=== PATIENT | female | born 1945 | race Caucasian/White ===

== ENCOUNTER → 2016-03-03 | Outpatient (REF) | payer MEDICARE ==
[~2016-03-03] MED LIST: ALEV220C2 PO; ALPR0.25 PO; ATOR1TAB21 PO; BENA25CA PO; CETI10TA PO; CO Q100C PO; CRAN500C2 PO; IBUP200C PO; VENTAER INH; VERA240C PO
== END ==
LOC: M LAB REF 12:39
PROVIDERS: ATTEND Internal Medicine Medical Oncology
DX: C50.019 Malignant neoplasm of nipple and areola, unspecified female breast (principal)

== ENCOUNTER → 2016-04-21 | Outpatient (REF) | payer MEDICARE ==
[2016-04-21 19:25] LABS: PERCENT SATURATION 3.3 % (13.2-37.4)
== END ==
LOC: M LAB REF 16:35
PROVIDERS: ATTEND Internal Medicine Medical Oncology
DX: C50.919 Malignant neoplasm of unspecified site of unspecified female breast (principal)

== ENCOUNTER → 2016-05-12 | Outpatient (REF) | payer MEDICARE | LOC: M LAB REF 16:44 | PROVIDERS: ATTEND Internal Medicine Medical Oncology | DX: C50.911 Malignant neoplasm of unspecified site of right female breast (principal) ==

== ENCOUNTER → 2016-06-02 | Outpatient (REF) | payer MEDICARE | LOC: M LAB REF 16:13 | PROVIDERS: ATTEND Internal Medicine Medical Oncology | DX: C50.119 Malignant neoplasm of central portion of unspecified female breast (principal) ==

== ENCOUNTER → 2016-07-02 | Outpatient (REF) | payer MEDICARE | LOC: M LAB REF 16:17 | PROVIDERS: ATTEND Internal Medicine Medical Oncology | DX: C50.912 Malignant neoplasm of unspecified site of left female breast (principal) ==

== ENCOUNTER → 2016-07-21 | Outpatient (REF) | payer MEDICARE | LOC: M LAB REF 16:35 | PROVIDERS: ATTEND Internal Medicine Medical Oncology | DX: C50.919 Malignant neoplasm of unspecified site of unspecified female breast (principal) ==

== ENCOUNTER → 2016-07-22 | Outpatient (CLI) | payer MEDICARE ==
[~2016-07-22] MED LIST changes: +BENA25CA4 PO; +CALCTAB68 PO; +CO Q10CA PO; +ENAL10TA2 PO; +FLON1SPR; +LEVO75TA4 PO; +PROA1AER INH; +VERA240C3 PO
== END ==
LOC: M LAB 12:35
PROVIDERS: ATTEND Internal Medicine Gastroenterology
DX: D50.9 Iron deficiency anemia, unspecified (principal)

== ENCOUNTER → 2016-08-03 | Outpatient (CLI) | payer MEDICARE ==
[~2016-08-03] VITALS: Ht 152.4 cm; Wt 59.9 kg
[~2016-08-03] MED LIST changes: +LIDOCAINE 2% INJ 100 MG/5 ML SDV (FOR ANES.) As Ordered ONE; +NS 1,000 ML IV ONE; +PHENYLephrine HCL 500 MCG/5 ML (100MCG/ML) SYRINGE (J2370) As Ordered ONE; +PROPOFOL 200 MG/20 ML VIAL As Ordered ONE; +ePHEDrine SULFATE 25 MG/5 ML(5MG/ML) SYRINGE As Ordered ONE
[2016-08-03 09:06] VITALS: BP 156/73
== END | disposition home or self-care (01) ==
LOC: M OPP 06:38
PROVIDERS: ATTEND Internal Medicine Gastroenterology
DX: D50.9 Iron deficiency anemia, unspecified (principal); D12.5 Benign neoplasm of sigmoid colon; D12.2 Benign neoplasm of ascending colon; K57.30 Diverticulosis of large intestine without perforation or abscess without bleeding; K64.8 Other hemorrhoids; K29.70 Gastritis, unspecified, without bleeding; K26.9 Duodenal ulcer, unspecified as acute or chronic, without hemorrhage or perforation; I10 Essential (primary) hypertension; E78.5 Hyperlipidemia, unspecified; Z86.79 Personal history of other diseases of the circulatory system; E16.1 Other hypoglycemia; M19.90 Unspecified osteoarthritis, unspecified site; F41.9 Anxiety disorder, unspecified; Z78.0 Asymptomatic menopausal state; J45.909 Unspecified asthma, uncomplicated; Z85.3 Personal history of malignant neoplasm of breast; Z92.21 Personal history of antineoplastic chemotherapy; Z88.5 Allergy status to narcotic agent; Z88.8 Allergy status to other drugs, medicaments and biological substances; Z79.899 Other long term (current) drug therapy; Z80.1 Family history of malignant neoplasm of trachea, bronchus and lung; Z80.0 Family history of malignant neoplasm of digestive organs
CPT/HCPCS: 43239; 45385; 88305; J2370

== ENCOUNTER → 2016-08-04 | Outpatient (CLI) | payer MEDICARE ==
[~2016-08-04] MED LIST changes: -LIDOCAINE 2% INJ 100 MG/5 ML SDV (FOR ANES.) As Ordered ONE; -NS 1,000 ML IV ONE; -PHENYLephrine HCL 500 MCG/5 ML (100MCG/ML) SYRINGE (J2370) As Ordered ONE; -PROPOFOL 200 MG/20 ML VIAL As Ordered ONE; -ePHEDrine SULFATE 25 MG/5 ML(5MG/ML) SYRINGE As Ordered ONE
--- NOTE | 2016-08-11 15:27 | DEXA ---
AP SPINE L1 - L4 1.437 2.0 3.7 LT FEMUR TOTAL 1.080 0.6 2.2 RT FEMUR TOTAL 1.081 0.6 2.2 TOTAL BODY TOTAL OTHER DUAL FEMUR FRAX* ASSESSMENT Risk factors: Chronic glucocorticoids. 10 year probability of fracture Major osteoporotic fracture 12.5 % Hip fracture 1.2 % COMMENTS: Normal bone densitometry of the spine and hips. The increased density of the spine does represent a significant change. The increased density of the left hip does represent a significant change. The increased density of the right hip does represent a significant change. The density of the spine has increased 26.6% since the initial exam on 2006. The spine density has increased 16.1% since the most recent exam on 08/07/2011. The density of the left hip has increased 4.7% since the initial exam on 2006. The density of the left hip has increased 2.5% since the most recent exam on . The density of the right hip has increased 2.1% since the initial exam on 2006. The density of the right hip has increased 3.3% since the most recent exam on . FOLLOW-UP: Recommendation for the next bone density exam: 5 years. LACIE
== END ==
LOC: M WHC 13:23
PROVIDERS: ATTEND Nurse Practitioner Family
DX: Z01.419 Encounter for gynecological examination (general) (routine) without abnormal findings (principal); N95.9 Unspecified menopausal and perimenopausal disorder; C50.912 Malignant neoplasm of unspecified site of left female breast; Z17.1 Estrogen receptor negative status [ER-]; Z90.13 Acquired absence of bilateral breasts and nipples

== ENCOUNTER → 2016-08-11 | Outpatient (REF) | payer MEDICARE | LOC: M LAB REF 16:58 | PROVIDERS: ATTEND Internal Medicine Medical Oncology | DX: C50.919 Malignant neoplasm of unspecified site of unspecified female breast (principal) ==

== ENCOUNTER → 2016-08-25 | Outpatient (CLI) | payer MEDICARE ==
[~2016-08-25] MED LIST changes: +E-Z-PAQUE 96% w/w SUSP 176GM BTL As Ordered ONE; -PROA1AER INH; +PROAAER10 INH
--- NOTE | 2016-08-25 17:42 | REP ---
SMALL BOWEL FOLLOW THROUGH: The procedure was performed under the direct supervision of Dr. Tobar. The images were reviewed with Dr. Tobar. The specifications checker film shows no organomegaly or pathological masses. The intestinal gas pattern is nonspecific. There are degenerative changes of the spine. Liquid barium was administered and the barium column was followed through the small bowel to the level of the terminal ileum. Small bowel transit time was approximately 15 minutes. During fluoroscopy, gentle palpation shows all loops are freely movable and pliable. There are no fixed or angulated loops. The small bowel mucosal pattern is normal in course and caliber. There is no transition to suggest a partial small bowel obstruction. The cecum is mobile and the terminal ileum is spotted in the right upper quadrant. Spot filming of the terminal ileum shows it to be unremarkable. IMPRESSION: The cecum is mobile with the terminal ileum being spotted on the right upper quadrant. Otherwise unremarkable small bowel follow through examination. 1 minute and 21 seconds of fluoroscopy time was utilized for this procedure. Reviewed by ADRY Wellington 08/26/2016 01:32 PEdited and Signed by Gordon Tobar MD 08/26/2016 05:33 P
== END ==
LOC: M RAD 07:50
PROVIDERS: ATTEND Internal Medicine Gastroenterology
DX: D50.9 Iron deficiency anemia, unspecified (principal)

== ENCOUNTER → 2016-09-01 | Outpatient (REF) | payer MEDICARE ==
[~2016-09-01] MED LIST changes: -E-Z-PAQUE 96% w/w SUSP 176GM BTL As Ordered ONE
== END ==
LOC: M LAB REF 16:42
PROVIDERS: ATTEND Internal Medicine Medical Oncology
DX: C50.919 Malignant neoplasm of unspecified site of unspecified female breast (principal)

== ENCOUNTER → 2016-09-11 | Outpatient (CLI) | payer MEDICARE ==
[~2016-09-11] MED LIST changes: +ISOVUE-370 76% 100ML VIAL (Q9967) As Ordered ONE
--- NOTE | 2016-09-11 11:28 | REP ---
CT of the chest for restaging of breast carcinoma: Comparison is the most recent prior study of 11/27/2015. Scanning is performed with IV contrast. There are bilateral mastectomies as previously. There is a right subclavian indwelling Port-A-Cath with the tip in satisfactory position in the the superior vena cava, unchanged. There are no lung masses or nodules. There is a at a stable tiny granuloma in the right upper lobe on image 31 and AC stable small linear density adjacent to the left major fissure on image 51, stable and unchanged. There are no acute infiltrates or effusions. There is no mediastinal or hilar add at the. There is no axillary adenopathy. The thoracic aorta is unremarkable except for occasional calcified atheroma. Cardiac size is normal. There is no pericardial effusion. In the visualized upper abdomen numerous hepatic cysts are again identified, not significantly changed. On the comparison study there was an enhancing lesion in the medial segment of the hepatic left lobe. This is not visualized on the study today, likely because of differences in timing of the scan with the IV contrast bolus. However, this lesion was unchanged from multiple other prior studies. There is a small density adjacent to the superior endplate of the approximate T5 vertebral body, unchanged, possibly a blastic metastasis versus bone island. 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 This is an anatomic variant. There are no other lytic, blastic or destructive skeletal changes. Impression: There is no significant change from the comparison study. No pulmonary metastases are identified. There is no mediastinal, hilar or axillary adenopathy. There are no acute infiltrates or effusions. There is a small sclerotic lesion adjacent to the superior endplate of the T5 vertebral body which could be a blastic metastasis or bone island. It is unchanged. There are bilateral mastectomies. There is a right subclavian central venous Yknfwe-F-Tvjj catheter with the tip in the superior vena cava. Signed by Gordon Garcia MD 09/11/2016 11:19 A
--- NOTE | 2016-09-11 13:53 | REP ---
Whole body radionuclide bone scan: Comparison is 06/03/2015. Whole-body scanning is performed. Additionally enlarged right and left lateral views of the calvarium are performed and enlarged oblique views of the ribs and pelvis are performed, as previously. There is no calvarial uptake as previously. There is free uptake foci in the ribs as previously, one in the posterior left seventh rib and the other in the posterior sixth rib and the third in the right sixth rib laterally. On the there is corresponding to healing rib fractures on previous CT scans. There is focal increased uptake at the right thumb base, likely from osteoarthritis. This is unchanged. Otherwise, there are no foci of increased uptake. Impression: No evidence of metastatic disease. There is uptake in three known rib fractures and uptake at the base of the right thumb, likely degenerative. The study is performed with 22 mCi of technetium 99m labeled MDP. Sign taking Signed by Gordon Garcia MD 09/11/2016 01:44 P
== END ==
LOC: M RAD 10:21
PROVIDERS: ATTEND Nurse Practitioner Family
DX: C50.919 Malignant neoplasm of unspecified site of unspecified female breast (principal)
CPT/HCPCS: 71260; 78306; A9503; Q9967

== ENCOUNTER → 2016-09-22 | Outpatient (REF) | payer MEDICARE ==
[~2016-09-22] MED LIST changes: -ISOVUE-370 76% 100ML VIAL (Q9967) As Ordered ONE
== END ==
LOC: M LAB REF 16:52
PROVIDERS: ATTEND Internal Medicine Medical Oncology
DX: C50.919 Malignant neoplasm of unspecified site of unspecified female breast (principal)

== ENCOUNTER → 2016-10-06 | Outpatient (CLI) | payer MEDICARE ==
--- NOTE | 2016-10-06 11:19 | REP ---
KUB: Single view. HISTORY: Foreign body in small intestine. FINDINGS: Bowel gas pattern is unremarkable. No opaque foreign body is seen. There are phleboliths in the pelvis. Flank stripes are intact. No mass organomegaly is seen. IMPRESSION: Unremarkable bowel gas pattern. No opaque foreign body seen. Signed by Torres Rojo MD 10/06/2016 01:06 P
[2016-10-17 10:53] LABS: PROMETHEUS IBD ANTIBODIES SEE SEPARATE REPORT; PROMETHEUS IBD SNP SEE SEPARATE REPORT
== END ==
LOC: M LAB 10:04
PROVIDERS: ATTEND Internal Medicine Gastroenterology
DX: T18.3XXA Foreign body in small intestine, initial encounter (principal); W18.30XA Fall on same level, unspecified, initial encounter; Y92.009 Unspecified place in unspecified non-institutional (private) residence as the place of occurrence of the external cause

== ENCOUNTER → 2016-10-08 | Outpatient (REF) | payer MEDICARE | LOC: M LAB REF 09:30 | PROVIDERS: ATTEND Internal Medicine Gastroenterology | DX: K52.9 Noninfective gastroenteritis and colitis, unspecified (principal); D50.9 Iron deficiency anemia, unspecified ==

== ENCOUNTER → 2016-11-03 | Outpatient (REF) | payer MEDICARE | LOC: M LAB REF 17:25 | PROVIDERS: ATTEND Internal Medicine Medical Oncology | DX: C50.912 Malignant neoplasm of unspecified site of left female breast (principal) ==

== ENCOUNTER → 2017-01-26 | Outpatient (REF) | payer MEDICARE | LOC: M LAB REF 14:42 | PROVIDERS: ATTEND Internal Medicine Medical Oncology | DX: C50.919 Malignant neoplasm of unspecified site of unspecified female breast (principal) ==

== ENCOUNTER → 2017-03-30 | Outpatient (REF) | payer MEDICARE ==
[2017-04-02 00:07] LABS: CA 27.29 13.7 U/mL (0.0-38.6)
== END ==
LOC: M LAB REF 17:29
DX: C50.919 Malignant neoplasm of unspecified site of unspecified female breast (principal)
CPT/HCPCS: 86300

== ENCOUNTER → 2017-04-01 | Outpatient (CLI) | payer MEDICARE | LOC: M RAD 13:36 | DX: M79.621 Pain in right upper arm (principal) | CPT/HCPCS: 93971 ==

== ENCOUNTER → 2017-06-01 | Outpatient (REF) | payer MEDICARE | LOC: M LAB REF 15:52 | DX: C50.919 Malignant neoplasm of unspecified site of unspecified female breast (principal) | CPT/HCPCS: 86300 ==

== ENCOUNTER → 2017-06-10 | Outpatient (CLI) | payer MEDICARE | LOC: M CARPUL 10:19 | DX: C34.90 Malignant neoplasm of unspecified part of unspecified bronchus or lung (principal); Z79.899 Other long term (current) drug therapy | CPT/HCPCS: 93306 ==

== ENCOUNTER → 2017-07-13 | Outpatient (REF) | payer MEDICARE ==
[2017-07-16 03:02] LABS: CA 27.29 8.7 U/mL (0.0-38.6)
== END ==
LOC: M LAB REF 16:43
DX: C50.812 Malignant neoplasm of overlapping sites of left female breast (principal); C79.51 Secondary malignant neoplasm of bone; Z17.1 Estrogen receptor negative status [ER-]; C77.3 Secondary and unspecified malignant neoplasm of axilla and upper limb lymph nodes
CPT/HCPCS: 86300

== ENCOUNTER → 2017-08-24 | Outpatient (REF) | payer MEDICARE ==
[2017-08-28 00:14] LABS: CA 27.29 16.3 U/mL (0.0-38.6)
== END ==
LOC: M LAB REF 17:56
DX: C50.812 Malignant neoplasm of overlapping sites of left female breast (principal); C79.51 Secondary malignant neoplasm of bone; Z17.1 Estrogen receptor negative status [ER-]; C77.3 Secondary and unspecified malignant neoplasm of axilla and upper limb lymph nodes
CPT/HCPCS: 86300

== ENCOUNTER → 2017-08-31 | Outpatient (CLI) | payer MEDICARE ==
[~2017-08-31] MED LIST changes: -ALEV220C2 PO; -ALPR0.25 PO; -ATOR1TAB21 PO; -BENA25CA PO; -BENA25CA4 PO; -CALCTAB68 PO; -CETI10TA PO; -CO Q100C PO; -CO Q10CA PO; -CRAN500C2 PO; -ENAL10TA2 PO; -FLON1SPR; -IBUP200C PO; +ISOVUE-370 76% 100ML VIAL (Q9967) As Ordered; -LEVO75TA4 PO; -PROAAER10 INH; -VENTAER INH; -VERA240C PO; -VERA240C3 PO
== END ==
LOC: M RAD 09:30
DX: C50.919 Malignant neoplasm of unspecified site of unspecified female breast (principal); M51.34 Other intervertebral disc degeneration, thoracic region; R91.1 Solitary pulmonary nodule
CPT/HCPCS: Q9967

== ENCOUNTER → 2017-09-07 | Outpatient (CLI) | payer MEDICARE | LOC: M CARPUL 11:17 | DX: Z51.81 Encounter for therapeutic drug level monitoring (principal); Z79.899 Other long term (current) drug therapy; C50.912 Malignant neoplasm of unspecified site of left female breast | CPT/HCPCS: 93306 ==

== ENCOUNTER → 2017-09-14 | Outpatient (REF) | payer MEDICARE ==
[2017-09-17 00:11] LABS: CA 27.29 9.3 U/mL (0.0-38.6)
== END ==
LOC: M LAB REF 16:53
DX: C50.812 Malignant neoplasm of overlapping sites of left female breast (principal); C79.51 Secondary malignant neoplasm of bone; Z17.1 Estrogen receptor negative status [ER-]; C77.3 Secondary and unspecified malignant neoplasm of axilla and upper limb lymph nodes
CPT/HCPCS: 86300

== ENCOUNTER → 2017-10-26 | Outpatient (REF) | payer MEDICARE ==
[2017-10-29 00:07] LABS: CA 27.29 16.6 U/mL (0.0-38.6)
== END ==
LOC: M LAB REF 17:06
DX: C50.812 Malignant neoplasm of overlapping sites of left female breast (principal); C79.51 Secondary malignant neoplasm of bone; Z17.1 Estrogen receptor negative status [ER-]; C77.3 Secondary and unspecified malignant neoplasm of axilla and upper limb lymph nodes
CPT/HCPCS: 86300

== ENCOUNTER → 2017-11-30 | Outpatient (CLI) | payer MEDICARE | LOC: M CARPUL 10:23 | DX: C50.919 Malignant neoplasm of unspecified site of unspecified female breast (principal); Z79.899 Other long term (current) drug therapy | CPT/HCPCS: 93306 ==

== ENCOUNTER → 2018-03-08 | Outpatient (CLI) | payer MEDICARE ==
[~2018-03-08] MED LIST changes: +ALEV220C2 PO; +ALPR0.25 PO; +ATOR1TAB21 PO; +BENA25CA PO; +BENA25CA4 PO; +CALCTAB68 PO; +CETI10TA PO; +CO Q100C PO; +CO Q10CA PO; +CRAN500C2 PO; +ENAL10TA2 PO; +FLON1SPR; +IBUP200C PO; -ISOVUE-370 76% 100ML VIAL (Q9967) As Ordered; +LEVO75TA4 PO; +PROAAER10 INH; +VENTAER INH; +VERA240C PO; +VERA240C3 PO
--- NOTE | 2018-03-08 19:30 | ECHO ---
DATE OF PROCEDURE: 03/08/2018 REFERRING PHYSICIAN: Dr. Humera Rodriguez INDICATION: Chemotherapy. Height 152 cm, weight 55 kg. DIMENSIONS: IVS: 0.9 LV: 5.3 LVPW: 0.9 LA: 3.8 Aorta: 2.5 Mitral E wave velocity: 71 A wave: 103 E prime septal: 7 E prime lateral: 10 FINDINGS: The study is of fair technical quality. The patient is in sinus rhythm with relatively frequent ventricular ectopy. Left ventricle is of normal size and it appears borderline hypokinetic. Based on fair quality of imaging, I estimate left ventricular ejection fraction (LVEF) approximately 50-55%. Computer-generated ejection fraction was calculated at 51%. Right ventricle appears grossly normal, but it was poorly visualized. Both atria appear to be normal size. Aortic valve has three leaflets and normal mobility. Mitral, tricuspid and pulmonic valves also appear grossly normal. No pericardial effusion is noted. Inferior vena cava was not well seen. Aortic root appears normal. Aortic arch and abdominal aorta were poorly visualized. There are several cystic lesions in the liver of unclear significance. Doppler interrogation reveals normal valvular function of aortic valve. There is trace mitral insufficiency and trace tricuspid insufficiency. Calculated pulmonary artery pressure is likely normal. Pulmonic valve exhibits trace insufficiency. Mitral inflow pattern and tissue Doppler imaging of mitral annulus revealed grade 1 diastolic dysfunction. CONCLUSIONS: 1. Study is of fair technical quality. 2. Normal left ventricular (LV) size with borderline reduced LV systolic function and grade 1 diastolic dysfunction. Calculated LVEF 51%. 3. No significant valvular disease. 4. Unable to estimate central venous pressure but likely normal pulmonary artery pressure. 5. Several cystic lesions in the liver of unknown significance. COMMENT: Subacute bacterial endocarditis (SBE) prophylaxis is not recommended. MTDD
== END ==
LOC: M CARPUL 11:17
PROVIDERS: ATTEND Internal Medicine Medical Oncology
DX: C79.81 Secondary malignant neoplasm of breast (principal); Z92.21 Personal history of antineoplastic chemotherapy; Z79.899 Other long term (current) drug therapy

== ENCOUNTER → 2018-03-29 | Outpatient (CLI) | payer MEDICARE ==
--- NOTE | 2018-03-30 08:59 | REP ---
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 There are no comparison PET scans. Whole-body scanning is performed from skull base to the upper thighs. Neck and supraclavicular areas: There are no hypermetabolic foci. Chest: There are no hypermetabolic foci. Specifically there are no hypermetabolic foci in the left ribs. Abdomen, pelvis and upper thighs: There are no hypermetabolic foci. Impression: Essentially negative radionuclide PET scan. The study is performed with 8.84 mCi of F 18 FDG. Electronically Signed by Gordon Garcia MD 03/30/2018 08:50 A
== END ==
LOC: M PLARAD 11:27
PROVIDERS: ATTEND Internal Medicine Medical Oncology
DX: C50.812 Malignant neoplasm of overlapping sites of left female breast (principal); C79.51 Secondary malignant neoplasm of bone
CPT/HCPCS: 78815; A9552

== ENCOUNTER → 2018-05-26 | Outpatient (CLI) | payer MEDICARE ==
--- NOTE | 2018-05-27 07:07 | ECHO ---
DATE OF PROCEDURE: 05/26/2018 AGE: 73 GENDER: Female. HEIGHT: 60 inches. WEIGHT: 122 pounds. BODY SURFACE AREA: 1.51 meters squared. PATIENT LOCATION: Outpatient. REFERRING PHYSICIAN: Dr. Humera Rodriguez INDICATION: Potentially cardiotoxic chemotherapy. MEASUREMENTS 2-D MEASUREMENTS: RV: 2.9 cm LV: 4.9 cm Septum: 0.9 cm Posterior wall: 0.9 cm Aortic root: 2.8 cm LA: 3.7 cm LVEF: 60% DOPPLER MEASUREMENTS: AV: 1.25 m/s LVOT: 0.75 m/s LVOT diameter: 2.0 cm MV-E 74, A 110, E/E ratio 0.7 Early mitral deceleration time: 190 ms E prime: 7 A prime: 10 E/E prime ratio: 10.5 PV: 0.8 m/s Pulmonary artery acceleration time: 102 ms PASP: 33 mmHg IVC: 1.0 cm COMMENTS: Normal sinus rhythm without intraventricular conduction disturbance. M-mode and two-dimensional echocardiography was performed with pulsed, continuous wave, color flow and tissue Doppler studies. Normal left ventricular size, wall thickness and wall motion. Left atrial size upper limits of normal with Doppler evidence of an impairment of LV diastolic function but currently normal estimated mean left atrial pressure. Normal right heart chamber sizes and motion with Doppler sign of borderline pulmonary hypertension. Reduced IVC size and complete collapse in keeping with a relatively low central venous pressure. Mild aortic valvular sclerosis without stenosis or insufficiency. Normal aortic root size. Mildly thickened mitral annulus with adequate leaflet excursion and no posterior systolic buckling, but mild mitral insufficiency. No apparent intracardiac mass or pericardial effusion. Multiple cystic lesions within the liver.
== END ==
LOC: M CARPUL 10:09
PROVIDERS: ATTEND Internal Medicine Medical Oncology
DX: C50.812 Malignant neoplasm of overlapping sites of left female breast (principal); Z79.899 Other long term (current) drug therapy

== ENCOUNTER → 2018-08-30 | Outpatient (CLI) | payer MEDICARE ==
[~2018-08-30] MED LIST changes: +CALCD50TA PO; +ISOVUE-370 76% 100ML VIAL (Q9967) As Ordered ONE
--- NOTE | 2018-08-30 17:05 | REP ---
CT of the chest with IV contrast: Comparison is 08/31/2017. On the previous study there was a 3 ml nodular density in the left lower lobe. On the study today there are now multiple nodules in this location. The largest measuring up to 6 mm on image 66. This isthmus suspicious for progressive change. There is a stable 3 ml calcified granuloma in the right upper lobe on image 29, unchanged. There are no other lung nodules or mass. No acute infiltrates or pleural effusions. There is no mediastinal or hilar lymph node enlargement. There is no axillary lymph node enlargement. The thoracic aorta is unremarkable. Cardiac size is normal. There is no pericardial effusion. The visualized upper abdomen. There are numerous hepatic cysts, not significantly changed. There is no adrenal mass. There are no lytic, blastic or destructive skeletal changes. There is advanced degenerative disc disease in the upper lumbar spine. This is unchanged. Impression: There are now multiple small lung nodules associated with the single lung nodule previously identified left lower lobe as a progressive change. There is a stable calcified granuloma in the right upper lobe, unchanged. The lung monzon otherwise clear. There are no other interval changes. Electronically Signed by Gordon Garcia MD 08/30/2018 04:57 P
== END ==
LOC: M RAD 10:56
PROVIDERS: ATTEND Nurse Practitioner Family
DX: R91.8 Other nonspecific abnormal finding of lung field (principal); M51.36 Other intervertebral disc degeneration, lumbar region; J84.10 Pulmonary fibrosis, unspecified
CPT/HCPCS: 71260; Q9967

== ENCOUNTER → 2018-09-09 | Outpatient (CLI) | payer MEDICARE ==
[~2018-09-09] MED LIST changes: -ISOVUE-370 76% 100ML VIAL (Q9967) As Ordered ONE
--- NOTE | 2018-09-10 06:59 | ECHO ---
DATE OF STUDY: 09/09/2018 REFERRING PHYSICIAN: Dr. Humera Rodriguez INDICATION: Breast cancer, chemotherapy drugs that may affect the heart. HEIGHT: 60 inches. WEIGHT: 119 pounds. 2-D MEASUREMENTS: Aortic annulus: 2.2 cm Left atrium: 3.2 cm Aortic root: 2.6 cm Ventricular septum: 0.82 cm Posterior wall: 0.84 cm Left ventricle diastole: 5.2 cm Left ventricle systole: 3.5 cm Inferior vena cava: 1.1 cm with marked reduction of respiratory variation DOPPLER MEASUREMENTS: Aortic valve velocity: 128 cm/sec LVOT velocity: 64.3 cm/sec Moderate mitral regurgitation Mitral E velocity: 58.2 cm/sec Mitral A velocity: 101 cm/sec Mitral deceleration time: 229 ms Very mild tricuspid regurgitation Estimated pulmonary artery systolic pressure 41 mmHg MITRAL ANNULAR TISSUE DOPPLER: E prime septal: 4.35 cm/sec E prime lateral: 6.31 cm/sec DESCRIPTION: The rhythm was sinus. Image quality was good. No pericardial effusion. This was a 2-D, M-mode, color flow Doppler and pulse wave Doppler examination and included mitral annular tissue Doppler. CONCLUSIONS: 1. Normal left ventricle internal dimensions and wall thickness. Normal regional LV wall motion and wall thickening. Normal LV systolic function. LVEF 60% by visual estimate. 2. Mild mitral annular calcification. Moderate mitral regurgitation. 3. Mild aortic valve sclerosis with a 3-cuspid aortic valve. No aortic regurgitation. 4. Suggestive of moderate elevation of pulmonary artery systolic pressure. 5. No pericardial effusion. 6. Multiple large liver cysts.
== END ==
LOC: M CARPUL 09:14
PROVIDERS: ATTEND Internal Medicine Medical Oncology
DX: C50.812 Malignant neoplasm of overlapping sites of left female breast (principal); C34.90 Malignant neoplasm of unspecified part of unspecified bronchus or lung; C79.89 Secondary malignant neoplasm of other specified sites

== ENCOUNTER 2018-10-12 15:14 | Emergency (ER) | payer MEDICARE ==
[~2018-10-12] VITALS: Ht 154.9 cm; Wt 65.9 kg
[2018-10-12 15:20] VITALS: O2SAT 99
[2018-10-12] MEDS ORDERED: ISOVUE-370 76% 100ML VIAL (Q9967) As Ordered ONE (15:48)
[2018-10-12 16:04] LABS: BASO # 0.1 10^3/uL (0.0-0.2); BASO % 0.6 % (0.0-1.0); EOS # 0.3 10^3/uL (0.0-0.50); EOS % 2.8 % (0.0-3.0); HEMATOCRIT 38.4 % (36.0-47.0); HEMOGLOBIN 12.2 g/dl (12.0-15.5); LYMPH # 2.2 10^3/uL (1.5-4.5); LYMPH % 23.3 % (24.0-44.0); MEAN CORPUSCULAR HEMOGLOBIN 24.2 pg (27.0-33.0); MEAN CORPUSCULAR HGB CONC 31.8 g/dl (32.0-36.5); MONO # 0.3 10^3/uL (0.0-0.8); MONO % 3.4 % (0.0-5.0); NEUTROPHILS # 6.7 10^3/uL (1.8-7.7); NEUTROPHILS % 69.6 % (36.0-66.0); PLATELET COUNT, AUTOMATED 433 10^3/uL (150-450); RED BLOOD COUNT 5.05 10^6/uL (4.00-5.40); WHITE BLOOD COUNT 9.6 10^3/uL (4.0-10.0)
[2018-10-12 16:25] LABS: BLOOD UREA NITROGEN 17 MG/DL (7-18); CALCIUM LEVEL 8.5 MG/DL (8.8-10.2); CARBON DIOXIDE LEVEL 25 MEQ/L (21-32); CHLORIDE LEVEL 110 MEQ/L (98-107); CK-MB VALUE MASS < 1.0 NG/ML (<3.6); CPK CREATINE PHOSPHOKINASE 62 U/L (26-192); CREATININE FOR GFR 1.06 MG/DL (0.55-1.30); GLOMERULAR FILTRATION RATE 53.8 (>39); GLUCOSE, FASTING 184 MG/DL (70-100); MB/CK RELATIVE INDEX 1.61 (< OR =4); POTASSIUM SERUM 3.9 MEQ/L (3.5-5.1); SODIUM LEVEL 144 MEQ/L (136-145); TROPONIN I < 0.02 NG/ML (< 0.10)
--- NOTE | 2018-10-12 16:30 | REP ---
CT of the chest with IV contrast, CT pulmonary artery angiography protocol: Comparison is 08/30/2018. There are no emboli in the pulmonary trunk or central pulmonary arteries. There are no emboli in the pulmonary lobe or segment branches. There is confluent nodular densities in the superior segment right lower lobe on image 56, unchanged from the comparison study. There are no infiltrates or pleural effusions. There is no mediastinal, hilar or axillary lymph node enlargement. There are bilateral breast implants. This is unchanged. The thoracic aorta is unremarkable. Cardiac size is normal. The visualized upper abdomen is unchanged. Multiple hepatic cysts are again noted. There is no adrenal mass. The gallbladder, pancreas, spleen and renal upper poles are unremarkable. Impression: There are no pulmonary emboli. There are confluent small nodules in the superior segment of the right lower lobe, unchanged from the comparison study. There are multiple hepatic cysts, unchanged. Bilateral breast implants, unchanged. Electronically Signed by Gordon Garcia MD 10/12/2018 04:22 P
[2018-10-12 16:53] VITALS: BP 124/63
--- NOTE | 2018-10-13 20:39 | ECGEPIP ---
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
== END 2018-10-12 18:14 | disposition home or self-care (01) ==
LOC: M ED 15:14
DX: T80.59XA Anaphylactic reaction due to other serum, initial encounter (principal); Y92.9 Unspecified place or not applicable; Y93.9 Activity, unspecified; R00.0 Tachycardia, unspecified; R94.31 Abnormal electrocardiogram [ECG] [EKG]; I10 Essential (primary) hypertension; E78.5 Hyperlipidemia, unspecified; C50.912 Malignant neoplasm of unspecified site of left female breast; Z79.899 Other long term (current) drug therapy; Z88.5 Allergy status to narcotic agent; Z88.8 Allergy status to other drugs, medicaments and biological substances
CPT/HCPCS: 71275; 80048; 82550; 82553; 84484; 85025; 93005; 99284; J1100; J1200; J1642; J1756; Q9967

== ENCOUNTER → 2018-11-28 | Outpatient (CLI) | payer MEDICARE ==
[~2018-11-28] MED LIST changes: +ISOVUE-370 76% 100ML VIAL (Q9967) As Ordered ONE
--- NOTE | 2018-11-28 10:51 | REP ---
CT chest with IV contrast: History: Malignant neoplasm of overlapping sites of the left female breast. Restaging breast cancer. Response to treatment. CT contrast dose: 75 mL of intravenous Isovue 370. Comparison chest CT study October 12, 2018 and August 30, 2018. The patient is status post bilateral mastectomy. There are multiple hepatic cysts in the which are fairly large. The largest of these measures 10.6 cm. There is some cortical scarring at the upper pole of the left kidney seen at the bottom edge of the imaging field of view. No adrenal lesion is seen. The visualized upper abdominal structures are otherwise unremarkable. There is no evidence of pleural or pericardial effusion. There is a cluster of pulmonary nodules in the right lower lobe. These appear slightly larger than on the prior study. The largest confluent component measures 14 mm in greatest transverse dimension today versus 12 mm on October 12, 2018. No new pulmonary nodule is appreciated. There is a granulomatous calcification in the right upper lobe near the apex which is unchanged. A right-sided Jpykai-K-Tlea is present. No axillary or supraclavicular adenopathy is seen. On bone window settings no bony destructive or sclerotic lesion is appreciated. Impression: There is a cluster of pulmonary nodules in the right lower lobe. These appear slightly larger today. No new pulmonary nodule is appreciated. Electronically Signed by Torres Rojo MD 11/28/2018 01:51 P
--- NOTE | 2018-12-01 07:59 | ECHO ---
DATE OF PROCEDURE: 11/28/2018 REFERRING PHYSICIAN: Kathie Pino NP INDICATION: Chemotherapy drugs that may affect the heart. HEIGHT: 150 cm WEIGHT: 64 kg 2D MEASUREMENTS: Left atrium: 4.1 cm Left atrial volume index: 30 Aortic root: 2.7 cm Proximal ascending aorta: 2.9 cm Ventricular septum: 0.85 cm Posterior wall: 0.92 cm Left ventricle diastole: 5.2 cm Aortic annulus: 2.0 cm DOPPLER MEASUREMENTS: Aortic valve velocity: 138 cm/s LVOT velocity: 71.1 cm/s LVOT VTI: 15.0 cm Mitral E velocity: 78.4 cm/s Mitral A velocity: 114 cm/s Trace tricuspid regurgitation. MITRAL ANNULAR TISSUE DOPPLER: E prime septal: 5.4 cm/s E prime lateral: 8.4 cm/s DESCRIPTION: Rhythm was sinus. Image quality was fair. No pericardial effusion. This was a 2D, M-mode, color flow Doppler and pulse wave Doppler examination and included mitral annular tissue Doppler. CONCLUSIONS: 1. Normal left ventricle internal dimensions and wall thickness. Normal regional LV wall motion and wall thickness. Left ventricular ejection fraction 60% by visual estimate. Grade 1 LV diastolic dysfunction. 2. Mild left atrial dilatation. 3. Mild mitral annular calcification. Moderate mitral regurgitation. 4. No pericardial effusion. 5. Right pleural effusion. 6. Appearance of hepatic cysts.
== END ==
LOC: M RAD 08:24
PROVIDERS: ATTEND Nurse Practitioner Family
DX: R91.8 Other nonspecific abnormal finding of lung field (principal); C50.812 Malignant neoplasm of overlapping sites of left female breast
CPT/HCPCS: 71260; 93306; Q9967

== ENCOUNTER → 2019-02-20 | Outpatient (CLI) | payer MEDICARE ==
[~2019-02-20] MED LIST changes: -ISOVUE-370 76% 100ML VIAL (Q9967) As Ordered ONE
--- NOTE | 2019-02-20 22:53 | ECHO ---
DATE OF PROCEDURE: 02/20/2019 REFERRING PHYSICIAN: Dr. Humera Rodriguez INDICATION: Chemotherapy therapy drugs that may affect the heart. HEIGHT: 149 cm WEIGHT: 54 kg 2D MEASUREMENTS: Ventricular septum: 0.86 cm Posterior wall: 0.99 cm Left atrium: 3.6 cm Left atrial volume index: 24 DOPPLER MEASUREMENTS: Aortic valve velocity: 139 cm/s LVOT velocity: 82.2 cm/s No aortic regurgitation. Very mild mitral regurgitation. Mitral E velocity: 54.0 cm/s Mitral A velocity: 95.1 cm/s Mitral deceleration time: 124 ms Trace tricuspid regurgitation. No pulmonic regurgitation. Pulmonary acceleration time: 116 ms MITRAL ANNULAR TISSUE DOPPLER: E prime lateral: 6.1 cm/s E prime septal: 6.1 cm/s DESCRIPTION: Rhythm was sinus. Image quality was good. This was a 2D, M-mode, color flow Doppler and pulse wave Doppler examination and included mitral annular tissue Doppler. CONCLUSIONS: 1. Normal left ventricle internal dimensions and wall thickness. Normal regional left ventricular (LV) wall motion and wall thickening. Normal LV systolic function. Left ventricular ejection fraction (LVEF) 60% by visual estimate. Grade 1 LV diastolic dysfunction (impaired relaxation filling pattern). 2. Otherwise normal appearing echocardiogram Doppler findings. 3. No pericardial effusion.
== END ==
LOC: M CARPUL 09:00
PROVIDERS: ATTEND Internal Medicine Medical Oncology
DX: C50.812 Malignant neoplasm of overlapping sites of left female breast (principal); Z92.21 Personal history of antineoplastic chemotherapy; C79.89 Secondary malignant neoplasm of other specified sites

== ENCOUNTER → 2019-03-22 | Outpatient (CLI) | payer MEDICARE ==
[2019-03-22 16:03] LABS: INR 1.11; PARTIAL THROMBOPLASTIN TIME 28.5 SECONDS (25.0-38.4)
--- NOTE | 2019-03-22 17:58 | REP ---
CT chest without contrast: History: Abnormal lung field finding. I-logic protocol. The patient status post mastectomy for breast carcinoma. Comparison chest CT study November 28, 2018 and October 12, 2018. CT findings: Bilateral breast prosthesis are again noted. The patient is status post bilateral mastectomy. There is no evidence of axillary adenopathy or chest wall abnormality. The right-sided Kqlzkf-Y-Mwry catheter is seen in place with its tip in the superior vena cava. There are numerous hepatic cysts, several of which are rather large unchanged from comparison studies. No hepatic mass lesion or adrenal mass lesion is observed. The visualized upper abdominal structures are otherwise unremarkable. No pleural or pericardial effusion is seen. There is a granulomatous calcification in the right upper lobe on page 27 of 101 in series 201 of today's study. This is unchanged. In the right lower lobe, somewhat superolaterally, there is a cluster of enlarging pulmonary nodules containing and associated with air bronchograms. These have gradually enlarged since the September 2018 prior study. There are four to five nodules within this grouping, which are becoming confluent. The largest component measures 17 mm in greatest craniocaudal span by 16 mm right to left. No other pulmonary nodule or mass lesion is observed. No bony destructive lesion is seen. Impression: There is a cluster of suspicious appearing noncalcified pulmonary nodules in the right lower lobe again noted somewhat increased from prior study. Electronically Signed by Torres Rojo MD 03/22/2019 07:32 P
== END ==
LOC: M RAD 15:00
PROVIDERS: ATTEND Internal Medicine Pulmonary Disease
DX: R91.8 Other nonspecific abnormal finding of lung field (principal)

== ENCOUNTER 2019-04-04 09:24 | Day surgery (SDC) | payer MEDICARE ==
[~2019-04-04] VITALS: Ht 149.9 cm; Wt 54.3 kg
[~2019-04-04 09:24] MED LIST changes: +LR 1,000 ML IV ONE; +LR 1,000 ML IV SCH; +TYLE650T35 PO
[2019-04-04] MEDS ORDERED: LIDOCAINE 2% INJ 100 MG/5 ML SDV (FOR ANES.) As Ordered ONE (11:04)
[2019-04-04] MEDS ORDERED: ROCURONIUM BROMIDE 50 MG/5 ML VIAL As Ordered ONE (11:04)
[2019-04-04] MEDS ORDERED: propofoL 200 MG/20 ML VIAL As Ordered ONE (11:04)
[2019-04-04] MEDS ORDERED: ONDANSETRON 4MG/2ML VIAL (J2405) As Ordered ONE (11:08)
[2019-04-04] MEDS ORDERED: dexameTHASONE 4 MG/ML 1ML VIAL (J1100) As Ordered ONE (11:08)
[2019-04-04] MEDS ORDERED: fentaNYL 100 MCG/2 ML INJECTION (J3010) As Ordered ONE (12:21)
[2019-04-04] MEDS ORDERED: MIDAZOLAM INJ 2 MG/2 ML VIAL (J2250) As Ordered ONE (12:22)
[2019-04-04] MEDS ORDERED: THROMBIN SOLN 5,000 UNITS VIAL As Ordered ONE (12:22)
[2019-04-04] MEDS ORDERED: CETACAINE SPRAY 5GM As Ordered ONE (12:23)
[2019-04-04] MEDS ORDERED: LIDOCAINE 1% SDV INJ 30 ML VIAL As Ordered ONE (12:23)
[2019-04-04] MEDS ORDERED: EPINEPHrine 1MG/10ML SYRINGE 1.5IN As Ordered ONE (12:23)
[2019-04-04] MEDS ORDERED: LIDOCAINE VISCOUS 2% SOLN 15ML UDC As Ordered ONE (12:23)
[2019-04-04] MEDS ORDERED: SUGAMMADEX SODIUM 500 MG/5 ML VIAL (BRIDION) As Ordered ONE (13:03)
[2019-04-04] MEDS ORDERED: PHENYLephrine HCL 500 MCG/5 ML (100MCG/ML) SYRINGE (J2370) As Ordered ONE (13:04)
--- NOTE | 2019-04-04 14:01 | REP ---
Clinical: Bronchoscopy. Technique: Fluoroscopic imaging using portable C-arm technique. Findings: Bronchoscopy with tissue sampling to the right lower lobe. Total fluoroscopic time 283 seconds. Electronically Signed by Gregorio Marks MD 04/04/2019 01:53 P
--- NOTE | 2019-04-04 14:11 | ROOR ---
Patient Name: Leatha Guerra Procedure Date: 04/04/2019 12:16 PM Date of : 1945 Admit Type: Outpatient Age: 74 Note Status: Finalized Attending MD: Paola Kaur MD Procedure: Bronchoscopy Indications: Right lower lobe mass Providers: Paola Kaur MD (Doctor) Referring MD: 1. No Referring Physician 1. No Referring Physician, Admin. (Referring MD) Requesting Physician: Medicines: General Anesthesia, Cetacaine topical Complications: No immediate complications. Estimated blood loss: Minimal Procedure: Pre-Anesthesia Assessment: - Prior to the procedure, a History and Physical was performed, and patient medications and allergies were reviewed. The patient's tolerance of previous anesthesia was also reviewed. The risks and benefits of the procedure and the sedation options and risks were discussed with the patient. All questions were answered, and informed consent was obtained. Prior Anticoagulants: The patient has taken no previous anticoagulant or antiplatelet agents. ASA Grade Assessment: III - A patient with severe systemic disease. After reviewing the risks and benefits, the patient was deemed in satisfactory condition to undergo the procedure. The Bronchoscope was introduced through the mouth, via the endotracheal tube (the patient was intubated for the procedure) and advanced to the tracheobronchial tree of both lungs. The procedure was accomplished without difficulty. The patient tolerated the procedure well. Findings: The endotracheal tube is in good position. The visualized portion of the trachea is of normal caliber. The tere is sharp. The tracheobronchial tree was examined to at least the first subsegmental level. Bronchial mucosa anatomy wass normal; there are no endobronchial lesions, and scant mucoid secretions. Bronchial mucosa throughout notable for pitting and webbing and prominent nodular cartilage. In the left upper lobe the anterior segment oriface was easily collapsable, possible bronchomalacia. Electromagnetic navigation bronchoscopy utilizing the [employer] system with iLogic upgrade was performed. The CT scan was used for planning purposes. A virtual bronchoscopic image was generated using the planning software and the tere, left main bronchus tere, left lower lobe basilar segment, right upper lobe, right middle lobe and right lower lobe basilar segment registration points were marked on the virtual image. The target in the right lower lobe was marked. A cluster of nodules was found and a pathway was created. After a complete airway exam, the locatable guide/extended working channel was inserted and an automatic registration was performed by advancing the scope through the tere, left main bronchus tere, left lower lobe basilar segment, right upper lobe, right middle lobe and right lower lobe basilar segment. The navigation phase was then begun to locate the target lesion(s). Positioning centrally (in relation to the lesion) was confirmed using the Olympus radial probe US catheter. The locatable guide was removed from the extended working channel. Fluoroscopy guided transbronchial brushings of a nodule were obtained in the right lower lobe with a needle brush and sent for routine cytology. Transbronchial brushing technique was selected because the sampling site was not visible endoscopically. Transbronchial needle aspirations of a nodule were performed in the right lower lobe GenCut and sent for routine cytology. The procedure was guided by fluoroscopy. Transbronchial needle aspiration technique was selected because the sampling site was not visible endoscopically. Transbronchial biopsies of a nodule were performed in the right lower lobe using forceps and sent for histopathology examination. The procedure was guided by fluoroscopy. Transbronchial biopsy technique was selected because the sampling site was not visible endoscopically. Bronchoalveolar lavage was performed in the right lower lobe of the lung and sent for cell count, bacterial culture, and fungal & AFB analysis and cytology. The return was blood-tinged. There were no mucoid plugs in the return fluid. Bronchoalveolar lavage was performed in the left upper lobe of the lung and sent for cell count, bacterial culture, and fungal & AFB analysis and cytology. The return was cloudy. There were no mucoid plugs in the return fluid. Impression: - Right lower lobe lesion - The airway examination showed mucosa with pitting and webbing and prominent nodular cartilage but no endobronchial lesions. - Electromagnetic navigation bronchoscopy was performed. - Transbronchial brushings were obtained. - A transbronchial needle aspiration was performed. - Transbronchial lung biopsies were performed. - Bronchoalveolar lavage was performed in [facility] - Bronchoalveolar lavage was performed in [place] Recommendation: - The patient will be observed post-procedure, until all discharge criteria are met. - Follow up with bronchoscopist as previously scheduled. Attending Participation: I personally performed the entire procedure. Paola Kaur MD 04/04/2019 2:10:47 PM Number of Addenda: 0 Note Initiated On: 04/04/2019 12:16 PM
--- NOTE | 2019-04-04 14:12 | REP ---
Clinical: Status post bronchoscopy. Findings: Mediastinum and cardiac silhouette are relatively normal. [id number]-[id number] with tip in the SVC. Lung monzon are relatively clear and without obvious consolidation, effusion, or pneumothorax. Skeletal structures intact. Impression: No obvious effusion or pneumothorax. Electronically Signed by Gregorio Marks MD 04/04/2019 02:04 P
[2019-04-04] MEDS ORDERED: oxyCODONE 5MG TAB PO PRN (14:30)
[2019-04-04] MEDS ORDERED: LR 1,000 ML IV SCH (14:30)
[2019-04-04] MEDS ORDERED: fentaNYL 100 MCG/2 ML INJECTION (J3010) IV PRN (14:30)
[2019-04-04] MEDS ORDERED: ONDANSETRON 4MG/2ML VIAL (J2405) IV PRN (14:30)
[2019-04-04] MEDS ORDERED: HYDROMORPHONE HCL 0.5 MG/ 0.5 ML SYRINGE (J1170 PER 1) IV PRN (14:30)
[2019-04-04 15:08] LABS: APPEARANCE TURBID (CLEAR); COLOR RED (COLORLESS); SOURCE RIGHT LOWER LOBE
[2019-04-04 15:10] VITALS: BP 127/65
[2019-04-04 15:29] LABS: COLOR COLORLESS (COLORLESS); SOURCE LEFT UPPER LOBE
[2019-04-04 15:30] LABS: APPEARANCE HAZY (CLEAR)
[2019-04-04 16:33] LABS: MONOCYTES/MACROPHAGES, BAL 23 %
== END 2019-04-04 15:35 | disposition home or self-care (01) ==
LOC: M SDC 09:24
PROVIDERS: ATTEND Internal Medicine Pulmonary Disease
DX: R91.8 Other nonspecific abnormal finding of lung field (principal); E03.9 Hypothyroidism, unspecified; I10 Essential (primary) hypertension; E78.5 Hyperlipidemia, unspecified; J45.909 Unspecified asthma, uncomplicated; C79.81 Secondary malignant neoplasm of breast; Z90.13 Acquired absence of bilateral breasts and nipples; C79.51 Secondary malignant neoplasm of bone; D64.9 Anemia, unspecified; I97.2 Postmastectomy lymphedema syndrome; K76.89 Other specified diseases of liver; M19.90 Unspecified osteoarthritis, unspecified site; F41.9 Anxiety disorder, unspecified; T80.89XA Other complications following infusion, transfusion and therapeutic injection, initial encounter; R56.9 Unspecified convulsions; Z88.5 Allergy status to narcotic agent; Z88.8 Allergy status to other drugs, medicaments and biological substances; Z87.891 Personal history of nicotine dependence; Z86.19 Personal history of other infectious and parasitic diseases; Z79.899 Other long term (current) drug therapy
CPT/HCPCS: 31623; 31624; 31627; 31628; 31629; 71045; 76000; 87070; 87102; 87116; 87205; 87206; 88104; 88173; 88305; 88312; 88313; 89050; 89051; J1100; J2250; J2370; J2405; J3010

== ENCOUNTER → 2019-05-15 | Outpatient (CLI) | payer MEDICARE ==
[~2019-05-15] MED LIST changes: -LR 1,000 ML IV ONE; -LR 1,000 ML IV SCH
--- NOTE | 2019-05-15 19:34 | REP ---
PET/CT: History: Restaging breast cancer. Status post bilateral mastectomy. Chemotherapy. Cluster of nodules in the right lower lobe on CT study. Comparisons: Comparison CT study of the chest March 22, 2019. Comparison PET-CT study March 29, 2018. TECHNIQUE: 48 minutes following the intravenous injection of a 8.87 mCi dose of F-18 FDG, three-dimensional PET scintigraphy is acquired from the skull base to the proximal thighs. Triplanar noncontrast CT scanning is acquired through the same anatomic range for attenuation correction, and image registration with scan parameters optimized to minimize radiation exposure to the patient. PET scintigraphy and CT datasets were fused and displayed on a workstation with multiplanar and projection display capability. PET/CT Findings: The cluster of pulmonary parenchymal nodules in the right lower lobe shows discernible but nonhypermetabolic FDG accumulation. Maximum SUV value in this grouping of nodules is 2.03. There is no other abnormal pulmonary parenchymal hypermetabolic uptake. No abnormal hypermetabolic uptake is seen in the hilar or mediastinal structures. No abnormal chest wall uptake is seen. No axillary hypermetabolic mckenna uptake is observed. Head and neck soft tissues are unremarkable. In the abdomen, there is normal distribution of tracer. Numerous hepatic cysts are again noted. No abnormal skeletal hypermetabolic uptake focus is seen. There is some uptake associated with advanced degenerative disc disease in the cervical spine and associated with arthropathy in the shoulders. Impression: There is discernible although nonhypermetabolic uptake in the right lower lobe pulmonary nodular densities. No other abnormal hypermetabolic uptake. Electronically Signed by Torres Rojo MD 05/15/2019 07:39 P
== END ==
LOC: M PLARAD 08:23
PROVIDERS: ATTEND Internal Medicine Pulmonary Disease
DX: C50.212 Malignant neoplasm of upper-inner quadrant of left female breast (principal)
CPT/HCPCS: 78815; A9552

== ENCOUNTER → 2019-05-31 | Outpatient (CLI) | payer MEDICARE ==
--- NOTE | 2019-05-31 22:10 | ECHO ---
DATE OF PROCEDURE: 05/31/2019 REFERRING PHYSICIAN: REASON FOR STUDY: Chemotherapy drug monitoring. 2D MEASUREMENTS: IVS: 0.85 cm LVPW: 0.9 cm LV: 5.0 cm LA: 4.2 cm Aorta: 2.6 cm IVC: 1.2 cm DOPPLER MEASUREMENTS: Peak velocity across the aortic valve: 1.3 m/s Peak velocity across the LVOT: 0.5 m/s Mitral E: 0.7, Mitral A: 1.12 with a ratio of 0.6 Maximum tricuspid valve velocity: 2.1 m/s 2D COMMENTS: 1. Normal left ventricular size, wall thickness, and low normal global left ventricular systolic function. The estimated global left ventricular systolic ejection fraction is 50 to 55%. 2. Mildly enlarged left atrium. Normal right atrium and right ventricle. 3. The atrial septum appeared to be normal without evidence of defect or shunt. 4. Normal aortic root. 5. Trace to small pericardial effusion noted, no evidence of cardiac tamponade. 6. Mildly calcified aortic valve with normal leaflet excursion. Mildly calcified mitral annulus with normal anterior mitral valve leaflet motion. Normal tricuspid valve. The pulmonic valve and proximal pulmonary artery branches were not well visualized. 7. The inferior vena cava was normal in size, central venous pressure was most likely normal. DOPPLER: Doppler detects trace tricuspid regurgitation and moderately severe mitral regurgitation. The calculated pulmonary artery systolic pressure was normal, less than 30 mmHg. Abnormal relaxation pattern was noted across the mitral valve leaflets as well as the mitral valve annulus consistent with features of grade 1 left ventricular diastolic dysfunction. IMPRESSION 1. Low normal global left ventricular systolic function. There are some features of left ventricular diastolic dysfunction manifested by abnormal relaxation. 2. Aortic valve sclerosis without stenosis or aortic regurgitation. 3. Mitral annulus calcification with mildly enlarged left atrium and moderately severe mitral regurgitation. 4. Trace to small pericardial effusion noted, no evidence of cardiac tamponade. 5. Global longitudinal strain/GLS was calculated at 12.9%. On the most recent echocardiogram, it was lower, less than 10%.
== END ==
LOC: M CARPUL 09:56
PROVIDERS: ATTEND Internal Medicine Medical Oncology
DX: C50.812 Malignant neoplasm of overlapping sites of left female breast (principal)

== ENCOUNTER → 2019-08-15 | Outpatient (CLI) | payer MEDICARE ==
[~2019-08-15] MED LIST changes: +SYST1SOL4 OP
--- NOTE | 2019-08-15 10:22 | REP ---
Clinical: Follow up abnormal lung findings. Technique: Axial noncontrast images from the thoracic inlet to the upper abdomen with coronal and sagittal re-formations. Comparison: 03/22/2019. Findings: The grouping of noncalcified nodules in the right lower lobe on prior examination demonstrates improvement with decreased number and size to the rounded soft tissue nodules and minimal adjacent scarring (images 59 - 65). The remainder of lung monzon are well-aerated and clear. No further consolidation, nodule or mass lesion. Minimal scarring at the lingula is again noted and unchanged. No effusion. No pneumothorax. Stable atherosclerotic changes to the thoracic aorta and coronary arteries again noted along with cardiomegaly and dilated left ventricle suggesting underlying cardiomyopathy. Limited upper abdomen again demonstrates innumerable hepatic cysts along with normal bilateral adrenal glands. Impression: 1. A small grouping of noncalcified nodules in the right lower lobe have decreased since prior examination. No new mediastinal or pleuroparenchymal process appreciated. Continued follow-up may be warranted. Electronically Signed by Gregorio Marks MD 08/15/2019 10:13 A
== END ==
LOC: M RAD 09:25
PROVIDERS: ATTEND Internal Medicine Pulmonary Disease
DX: R91.8 Other nonspecific abnormal finding of lung field (principal)

== ENCOUNTER → 2019-08-25 | Outpatient (CLI) | payer MEDICARE ==
[~2019-08-25] MED LIST changes: +ACET650T61 PO; +BREAST PROSTHESIS L XX; +ENAL-36 PO; -ENAL10TA2 PO; +MASTECTOMY BRA LEFT XX; +METO1TAB33 PO; -TYLE650T35 PO
--- NOTE | 2019-08-29 10:52 | ECHO ---
DATE OF SERVICE: 08/25/2019 REFERRING PROVIDER: Humera Rodriguez MD PATIENT LOCATION: Outpatient. REASON FOR THE STUDY: Chemotherapy drug monitoring. 2D MEASUREMENTS: IVS: 1.0 cm LV: 5.3 cm LVPW: 1.0 cm LA: 4.1 cm Aorta: 2.8 cm IVC: 0.9 cm DOPPLER MEASUREMENTS: Peak velocity across the aortic valve: 1.3 m/s Peak velocity across the LVOT: 0.57 m/s Mitral E: 0.78 Mitral A: 0.93 with a ratio of 0.8 Maximum tricuspid valve velocity: 2.3 m/s 2D COMMENTS: 1. Normal left ventricular size, wall thickness, with probably mildly depressed global left ventricular systolic function. The estimated global left ventricular systolic function is 45% to 50%. 2. Mildly enlarged left atrium. Normal right atrium and right ventricle. 3. The atrial septum appeared to be normal without evidence of defect or shunt. 4. Normal aortic root. 5. Trace to small pericardial effusion noted, no evidence of cardiac tamponade. 6. Mildly calcified aortic valve with normal leaflet excursion. Mildly calcified mitral annulus with normal anterior mitral valve leaflet motion. Normal tricuspid valve and pulmonic valve. The proximal pulmonary artery branches were not well visualized. 7. The inferior vena cava was normal in size, central venous pressure is most likely normal. 8. Echogenic structures noted in the liver are probably related to liver cysts. DOPPLER: It detects moderately severe mitral regurgitation, mild tricuspid regurgitation. The calculated pulmonary artery systolic pressure varies between 25 and 30 mmHg. Abnormal relaxation pattern was noted across the mitral valve leaflets, as well as the mitral valve annulus, consistent with features of grade I left ventricular diastolic dysfunction. IMPRESSION: 1. Probably mildly depressed global left ventricular systolic function with mild global hypokinesis. There are some features of left ventricular diastolic dysfunction, grade 1. 2. Aortic valve sclerosis without stenosis or aortic regurgitation. 3. Mitral annulus calcification with mildly enlarged left atrium and moderate to severe mitral regurgitation. 4. Mild tricuspid regurgitation. Pulmonary artery systolic pressure appeared to be normal. 5. Global longitudinal strain was reported to be minus 15%, slight improvement from most recent echocardiogram done earlier this year. 6. Trace to small pericardial effusion, no evidence of cardiac tamponade. 7. Possible cysts noted in the liver. MTDD
== END ==
LOC: M CARPUL 09:00
PROVIDERS: ATTEND Internal Medicine Medical Oncology
DX: C50.212 Malignant neoplasm of upper-inner quadrant of left female breast (principal); Z92.21 Personal history of antineoplastic chemotherapy; Z79.899 Other long term (current) drug therapy

== ENCOUNTER → 2020-01-22 | Outpatient (CLI) | payer MEDICARE ==
[~2020-01-22] MED LIST changes: +ISOVUE-370 76% 100ML VIAL As Ordered ONE
--- NOTE | 2020-01-22 17:44 | REP ---
INDICATION: METASTATIC BREAST CA FOLLOW UP. COMPARISON: Comparison is made with multiple prior chest CT studies the most recent which is from August 15, 2019. The most remote is July 04, 2013. TECHNIQUE: Helical scanning is acquired following intravenous injection of contrast. The contrast enhancement dose is 75 mL of intravenous Isovue 370. 3 mm axial images re-formatted. Coronal and sagittal MPR and coronal MIP images are generated. FINDINGS: Digital preliminary skin care therapist radiograph demonstrates a right-sided Vwgnmr-G-Olhi catheter. Patient is status post bilateral mastectomy. External prostheses are seen. There is no evidence of pleural or pericardial effusion. No hilar or mediastinal mass or adenopathy is observed. There are numerous hepatic cysts again noted ranging in size up to a right lobe hepatic cyst that measures 8.7 cm in greatest diameter. These are unchanged. Several of these are larger than they were in 2014. No upper abdominal mass or adenopathy is seen. No focal liver mass lesion is seen. Normal adrenal glands. The visualized upper abdominal structures are otherwise unremarkable. On lung window settings, there are several noncalcified pulmonary nodules in the right lower lobe in a cluster of 78 pulmonary nodules. The largest of these nodular densities measures 13 mm in greatest diameter today. These appear to have increased in size and number when compared with the most recent prior study of August 15, 2019. The largest nodule is larger than it was on March 22, 2019 as well. Some of the smaller satellite nodules are larger than the most recent study but similar to the March 22, 2019 exam. There is a granulomatous calcification in the right upper lobe which is unchanged. No other pulmonary nodule is appreciated. No infiltrate or atelectasis is seen. There is some pleuroparenchymal fibrosis in the lingula just above the left hemidiaphragm anteriorly. This is unchanged. Bone window settings show no bony destructive lesion. There are degenerative changes in the thoracic spine. IMPRESSION: There is a cluster of nodules in the right lower lobe which appear more prominent in size and number than on the most recent prior study of August 15, 2019. Progression must be suspected. <Electronically signed by Johnnie Rojo > 01/22/20 [id number]
== END ==
LOC: M RAD 13:30
PROVIDERS: ATTEND Internal Medicine Medical Oncology
DX: C50.919 Malignant neoplasm of unspecified site of unspecified female breast (principal)

== ENCOUNTER → 2020-03-13 | Outpatient (CLI) | payer MEDICARE ==
[~2020-03-13] MED LIST changes: -ISOVUE-370 76% 100ML VIAL As Ordered ONE
--- NOTE | 2020-03-19 09:29 | ECHO ---
DATE OF PROCEDURE: 03/13/2020 Age: 74 Gender: Female REFERRING PROVIDER: Asha Cummins MD. PATIENT LOCATION: Outpatient. REASON FOR STUDY: Chemotherapy drug monitoring. 2D MEASUREMENTS: IVS 0.9 cm LV 5.0 cm LVPW 1.0 cm LA 4.1 cm Aorta 2.8 cm IVC 1.5 cm DOPPLER MEASUREMENT Peak velocity across the aortic valve 1.3 m/s Peak velocity across the LVOT 0.4 m/s Mitral E 0.47 Mitral A 0.9 with a ratio of 0.5 Maximum tricuspid valve velocity 2.0 m/s 2D COMMENTS: 1. Normal left ventricular size, wall thickness, and low normal global left ventricular systolic function. The estimated left ventricular systolic ejection fraction is 50 to 55%. 2. Mildly enlarged left atrium. Normal right atrium and right ventricle. 3. The atrial septum appeared to be normal without evidence of defect or shunt. 4. Normal aortic root. 5. Trace pericardial effusion seen. No evidence of cardiac tamponade. 6. Mildly calcified aortic valve with normal leaflet excursion. Normal mitral valve, tricuspid valve, and pulmonic valve. The proximal pulmonary artery branches also appeared to be normal in size. 7. The inferior vena cava was normal in size, central venous pressure was most likely normal. DOPPLER: It detects moderate mitral regurgitation, mild tricuspid regurgitation. The calculated pulmonary artery systolic pressure was normal. IMPRESSION: 1. Low normal global left ventricular systolic function. There were some features of grade 1 left ventricular diastolic dysfunction manifested by abnormal relaxation. 2. Aortic valve sclerosis without stenosis or aortic regurgitation. 3. Moderate mitral regurgitation with a mildly enlarged left atrium. 4. Mild tricuspid regurgitation with a normal calculated pulmonary artery systolic pressure. 5. Trace pericardial effusion. 6. This study was compared to the echocardiogram done on 08/25/2019, and at that time, there was more pericardial effusion, and LVEF also appeared to be lower. MTDD
== END ==
LOC: M CARPUL 10:09
PROVIDERS: ATTEND Internal Medicine Medical Oncology
DX: C50.919 Malignant neoplasm of unspecified site of unspecified female breast (principal); Z79.899 Other long term (current) drug therapy; I31.3 Pericardial effusion (noninflammatory); I34.2 Nonrheumatic mitral (valve) stenosis

== ENCOUNTER → 2020-04-29 | Outpatient (CLI) | payer MEDICARE ==
--- NOTE | 2020-04-29 16:58 | REP ---
INDICATION: RESTAGING LEFT BREAST CANCER C50.212. COMPARISON: Comparison is made with prior chest CT studies, the most recent which is from January 22, 2020. Comparison PET-CT study is from May 15, 2019.. TECHNIQUE: Fifty-eight minutes following the intravenous injection of a 18.79 mCi dose of F-18 FDG, three-dimensional PET scintigraphy is acquired from the skull base to the proximal thighs. Triplanar noncontrast CT scanning is acquired through the same anatomic range for attenuation correction, and image registration with scan parameters optimized to minimize radiation exposure to the patient. PET scintigraphy and CT datasets were fused and displayed on a workstation with multiplanar and projection display capability. FINDINGS: The previously noted right lower lobe nodule has progressed in size in the interval since the January 22, 2020 prior study. A confluent 2.0 x 1.8 cm nodule is present today in this location. It is hypermetabolic. Maximum standard uptake value is 6.02 today, previously 2.0. It is felt to be consistent with primary metastatic pulmonary malignancy. No other abnormal hypermetabolic uptake is seen in the chest. The head and neck soft tissues are unremarkable. In the abdomen and pelvis, normal hepatic, splenic, gastrointestinal, and genitourinary FDG accumulation is seen. No abnormal hypermetabolic uptake is seen in the abdomen or pelvis. PET scintigraphy is otherwise unremarkable. Multiple large hepatic cysts are noted. The patient is status post bilateral mastectomy. No abnormal axillary uptake is seen. IMPRESSION: Progressive enlargement of the right lower lobe pulmonary nodule now 2.0 cm in greatest diameter and hypermetabolic, SUV 6.02. <Electronically signed by Johnnie Rjoo > 04/29/20 [id number]
== END ==
LOC: M PLARAD 12:19
PROVIDERS: ATTEND Internal Medicine Medical Oncology
DX: C50.212 Malignant neoplasm of upper-inner quadrant of left female breast (principal)
CPT/HCPCS: 78815; A9552

== ENCOUNTER → 2020-05-27 | Outpatient (REF) | payer MEDICARE ==
[~2020-05-27] MED LIST changes: +COVI30VI IM; -SYST1SOL4 OP; +SYST1SOL4 OU
[2020-05-27 11:33] LABS: PLATELET COUNT, AUTOMATED 301 10^3/uL (150-450)
[2020-05-27 11:43] LABS: INR 0.96
[2020-05-27 11:44] LABS: PARTIAL THROMBOPLASTIN TIME 30.6 SECONDS (24.2-38.5)
== END ==
LOC: M LAB REF 11:11
PROVIDERS: ATTEND Internal Medicine Pulmonary Disease
DX: R91.8 Other nonspecific abnormal finding of lung field (principal)

== ENCOUNTER → 2020-06-03 | Outpatient (CLI) | payer MEDICARE ==
[~2020-06-03] MED LIST changes: -COVI30VI IM; +LIDOCAINE 1% MDV 20ML VIAL As Ordered ONE
--- NOTE | 2020-06-03 11:38 | REP ---
INDICATION: POST RIGHT LUNG BIOPSY, 1 VIEW, COMPARE. 11:33 a.m. radiograph. COMPARISON: Comparison is made with the immediate post biopsy image done 9:40 a.m... TECHNIQUE: Follow-up PA chest x-ray. FINDINGS: There is still no evidence of pneumothorax or hydrothorax. The target lung nodule is again visible in the right base. A right-sided Igqxuo-Z-Eshv catheter is seen. Mildly prominent heart. IMPRESSION: No complication seen. <Electronically signed by Johnnie Rojo > 06/03/20 [id number]
[2020-06-03 11:45] VITALS: BP 132/63
--- NOTE | 2020-06-04 06:55 | REP ---
INDICATION: RLL MASS. COMPARISON: None. TECHNIQUE: THE PROCEDURE WAS PERFORMED UNDER THE DIRECT SUPERVISION OF DR. ROJO. Patient has a history of a hypermetabolic nodule in the right lower lobe measuring 2 x 1.8 cm seen on a previous PET scan performed on 04/29/2020. The risks and benefits of the procedure were explained to the patient and informed consent was obtained. The right lower lobe lung nodule was localized using CT guidance. The skin was prepped and draped in a sterile fashion. 1% lidocaine was used as a local anesthetic. Using CT guidance a 19/20 gauge coaxial needle biopsy system was inserted and advanced into the nodule. Three core biopsy samples were obtained and sent to the lab. The patient tolerated the procedure well and there were no immediate complications. After the appropriate amount to monitor convalescence the patient was discharged from the department. FINDINGS: None IMPRESSION: CT-guided right lower lobe lung biopsy. <Electronically signed by Benny Bland > 06/03/20 [id number] <Electronically signed by Johnnie Rojo > 06/04/20 0630
--- NOTE | 2020-06-04 07:35 | REP ---
INDICATION: POST RIGHT LUNG BIOPSY, 1 VIEW, PA INSPIRATION. COMPARISON: Comparison chest x-ray April 04, 2019.. TECHNIQUE: PA chest radiograph. Single-view. FINDINGS: There is a right-sided Zcnkwv-F-Kfoe catheter noted in place. There is an ill-defined pulmonary nodule in the right lung base 2.1 cm in greatest diameter. This was the needle biopsy target. There is no visible pneumothorax, pulmonary parenchymal hematoma, or hemothorax. Heart is enlarged unchanged. Aorta is tortuous and calcific. IMPRESSION: No complication seen. <Electronically signed by Johnnie Rojo > 06/03/20 [id number]
== END ==
LOC: M IRPRO 08:23
PROVIDERS: ATTEND Internal Medicine Pulmonary Disease
DX: C34.31 Malignant neoplasm of lower lobe, right bronchus or lung (principal)

== ENCOUNTER → 2020-06-14 | Outpatient (CLI) | payer MEDICARE ==
[~2020-06-14] MED LIST changes: +COVI30VI IM; -LIDOCAINE 1% MDV 20ML VIAL As Ordered ONE
--- NOTE | 2020-06-17 10:16 | ECHO ---
DATE OF PROCEDURE: 06/14/2020 Age: 75 Gender: Female REFERRING PHYSICIAN: Asha Cummins M.D. PATIENT LOCATION: Outpatient. INDICATION: Chemotherapy drug monitoring. MEASUREMENTS: IVS 1.0 cm LV 5.2 cm LVPW 0.9 cm LA 3.8 cm Aorta 2.9 cm DOPPLER MEASUREMENT Peak velocity across the LVOT 0.6 m/s Mitral E 0.45 Mitral A 0.93 2D COMMENTS: 1. Normal left ventricle size, wall thickness, and normal global left ventricular systolic function. The estimated left ventricular systolic ejection fraction is 60% to 65%. 2. Normal left atrium. Normal right atrium and right ventricle. 3. The atrial septum appeared to be normal without evidence of defect or shunt. 4. Normal aortic root. 5. Trace pericardial effusion noted. No evidence of cardiac tamponade. 6. Mildly calcified aortic valve with normal leaflet excursion. Mildly calcified mitral annulus with normal anterior mitral valve leaflet motion. Normal tricuspid valve. The pulmonic valve was not well visualized. 7. The inferior vena cava was not well visualized. 8. Incidentally, echogenic structures noted in the liver and some appear to be cystic in nature. The largest was 6.5 cm x 7.6 cm. DOPPLER: Detects trace tricuspid regurgitation and moderate mitral regurgitation. Abnormal relaxation pattern was noted across the mitral valve leaflets, as well as the mitral valve annulus consistent with features of grade 1 left ventricle diastolic dysfunction. IMPRESSION: 1. Normal global left ventricular systolic function. There are some features of grade 1 left ventricular diastolic dysfunction manifested by abnormal relaxation. 2. Aortic valve sclerosis without stenosis or aortic regurgitation. 3. Mitral annular calcification with moderate mitral regurgitation. Subjectively, the left atrium appeared to be mildly enlarged. 4. Trace tricuspid regurgitation. 5. Trace pericardial effusion. 6. Multiple cystic lesions noted in the liver as mentioned above. This study was compared with the most recent echocardiogram on 03/13/2020, and LVEF seems to be now higher. In limited views, cystic lesions also were noted in the liver. MTDD
== END ==
LOC: M CARPUL 10:16
PROVIDERS: ATTEND Internal Medicine Medical Oncology
DX: C50.812 Malignant neoplasm of overlapping sites of left female breast (principal); Z79.899 Other long term (current) drug therapy

== ENCOUNTER → 2020-07-04 | Outpatient (CLI) | payer MEDICARE ==
--- NOTE | 2020-07-04 11:46 | RADONC.CN ---
Radiation Oncology Hx/Consult Radiation Oncology Consult Date of Service: July 04, 2020 Pt Identifier Leatha Guerra is a 75 year old female former smoker with a history of stage IV breast cancer ER/NV- HER2+ diagnosed in 2013 in remission on maintenance herceptin/perjeta, who has recently diagnosed NSCLC of the RLL, [id number] stage IA2. She is seen today for consideration of SBRT. Diagnosis/Treatment History Oncologic History From Dr. Cummins's recent note: Left modified radical mastectomy, right prophylactic mastectomy 05/2013. - T2 (4.5 cm) N2 (15/16; + LORI) ER/NV negative, HER2/yessi positive invasive ductal carcinoma. - Staging workup revealed right 5th, 6th and left 7th rib metastatic foci, 6 mm left upper lobe noncalcified nodule, right liver lesion positive for metastatic breast cancer. Taxotere/Herceptin/Perjeta four cycles July - September 2013. Trastuzumab/pertuzumab maintenance q. 21 days 01/2014 - 05/2018. Denosumab q. 12 weeks 2013 - 2017, held after resolution of demonstrable bone metastases and to avoid toxicity. Parenteral iron infusion as needed since 2018. Restarted trastuzumab/pertuzumab 08/2018 for subcentimeter coalescing lung nodules on chest CT 08/2018. 04/29/20 PET-CT showing uptake in a 2 cm RLL nodule 06/03/20 EBUS and biopsy revealing adenocarcinoma PDL1 60% Relevant data: FINDINGS: The previously noted right lower lobe nodule has progressed in size in the interval since the January 22, 2020 prior study. A confluent 2.0 x 1.8 cm nodule is present today in this location. It is hypermetabolic. Maximum standard uptake value is 6.02 today, previously 2.0. It is felt to be consistent with primary metastatic pulmonary malignancy. No other abnormal hypermetabolic uptake is seen in the chest. The head and neck soft tissues are unremarkable. In the abdomen and pelvis, normal hepatic, splenic, gastrointestinal, and genitourinary FDG accumulation is seen. No abnormal hypermetabolic uptake is seen in the abdomen or pelvis. PET scintigraphy is otherwise unremarkable. Multiple large hepatic cysts are noted. The patient is status post bilateral mastectomy. No abnormal axillary uptake is seen. IMPRESSION: Progressive enlargement of the right lower lobe pulmonary nodule now 2.0 cm in greatest diameter and hypermetabolic, SUV 6.02. PFTs 1/27/20 FVC Normal FEV1 Normal FEV1/FVC 72% pred Interval History Leatha is here with her supportive friend. States she cares for her full- time as he has Alzheimer's. She has struggled to enlist home care services to help her with him. She has chronic lymphedema in the LUE but full ROM and minimal pain as long as she wears a compression sleeve. She has no breathing difficulties other than mild asthma, but she did have an isolated incident of hemoptysis s/p EBUS which resolved spontaneously. She has no significant fatigue. She has preserved appetite and stable weight. Past Medical History: Asthma CVD Gastric ulcer HTN Lympedema LUE 1st @ 27 Menses @ 11 Menopause @ 51 OCP use x 5 years Hypothyroid Past Surgical History: Cervical spinal surgery Tonsillectomy BL mastectomy Family History: Father pancreatic cancer Mother colon cancer Sister lung cancer Social History: 10 pack year former smoker Drinks 1 glass wine per week Allergies / Meds Allergies: Coded Allergies: iron (Verified Adverse Reaction, Severe, BP dropped significantly, seizure, 04/04/19) phenobarbital (Verified Adverse Reaction, Intermediate, Agitation, 04/04/19) codeine (Verified Adverse Reaction, Mild, Hyperactivity, 04/04/19) meperidine (Verified Adverse Reaction, Mild, N+V, 04/04/19) Home Meds Reported Medications Covid-19 Vacc, Mrna(Pfizer)/Pf (Pfizer Covid19 Vacc (Unapprov)) 30 Mcg/0.3 Ml Vial, 30 MCG IM, VIAL 06/17/20 Metoprolol Succinate (Metoprolol Succinate) 100 Mg Tab.er.24h, 100 MG PO QPM 10/09/19 Propylene Glycol/Peg 400/Pf (Systane 0.3-0.4% Eye Drop) 1 Each Droperette, 2 DROP OU BID 08/07/19 Acetaminophen (Tylenol Arthritis) 650 Mg Tablet.er, 1300 MG PO QHS, TAB 04/03/19 Calcium/Vitamin D (Calcium 500-Vit D3 200 Tablet) 1 Each Tablet, 1 TAB PO BID 06/14/18 Diphenhydramine HCl (Benadryl) 25 Mg Cap, 50 MG PO QHS, CAP 07/31/16 Ubidecarenone (Co Q-10) 10 Mg Cap, 20 MG PO QPM 07/31/16 Levothyroxine Sodium (LEVOTHYROXINE SODIUM) 75 Mcg Tab, 75 MG PO QAM 07/31/16 Fluticasone Propionate (Flonase Allergy Relief) 50 Mcg/Act Spr, 1 SPRAY NA DAILY PRN for NASAL CONGESTION, SPR 07/31/16 Alprazolam (Alprazolam) 0.25 Mg Tab, 0.25 MG PO QHS 07/31/16 Atorvastatin Calcium (Atorvastatin Calcium) 20 Mg Tab, 20 MG PO QPM 07/31/16 Enalapril Maleate (Enalapril Maleate) 10 Mg Tab, 10 MG PO DAILY 07/31/16 Review of Systems General: Reports: Normal Appetite Constitutional: Denies: Chills, Fever, Night Sweats Eyes: Denies: Pain, Vision change HEENT: Denies: Head Aches, Dysphagia, Sore Throat Skin: Denies: Rash, Lesions, Bruising Pulmonary: Denies: Dyspnea, Cough Cardiovascular: Reports: Edema; Denies: Chest Pain, Palpitations Gastrointestinal: Denies: Nausea, Vomiting, Abdominal Pain, Diarrhea Genitourinary: Denies: Dysuria, Frequency, Incontinence Hematologic: Denies: Bruising, Petecchia, Enlarged Lymph Nodes Musculoskeletal: Denies: Neck pain, Back pain Neurological: Denies: Weakness, Numbness, Incoordination Psych: Reports: Mood Normal; Denies: Memory Issues, Thoughts of Self Harm Vital Signs Wt 121 T 97 P 72 RR 18 BP 178/79 O2 99% Pain 0 Fatigue 0 General Exam: Positive: Alert, Cooperative, No Acute Distress Eye Exam: Positive: PERRLA, EOMI ENT EXAM: Positive: Mucous membr. moist/pink, Pharynx Normal Neck Exam: Negative: Thyromegaly, Lymphadenopathy Chest Exam: Positive: Normal air movement; Negative: Rales, Rhonchi, Wheezing Heart Exam: Positive: Rate Normal, Regular Rhythm Abdomen Exam: Positive: Soft; Negative: Tenderness, Mass Extremity Exam: Positive: Edema (LUE compression sleeve in place); Negative: Tenderness Skin Exam: Positive: Nl turgor and temperature; Negative: Rash Neuro Exam: Positive: Normal Gait, Normal Speech, Cranial Nerves 3-12 NL Psych Exam: Positive: Mental status NL, Mood NL, Memory Intact Diagnostic and Laboratory Diagnostic Review Radiologic images, relevant labs and pathology reports were personally reviewed and discussed with Ms. Guerra. Assessment and Plan Impression Ms. Guerra is a 75 year old female former smoker with a history of stage IV breast cancer ER/NV- HER2+ diagnosed in 2013 in remission on maintenance herceptin/perjeta, who has recently diagnosed NSCLC of the RLL, [id number] stage IA2. She is seen today for consideration of SBRT. Stage NSCLC RLL [id number] stage IA2 Breast cancer stage IV HER2+ ER/NV- Performance Status ECOG 0 Plan We had an extensive discussion with Ms. Guerra regarding the diagnosis at [facility] and available therapeutic options. She has a small peripheral NSCLC of the RLL, this is a good target for SBRT. She has good pulmonary reserve overall but does not desire surgery. I recommend 60 Gy in 5 fractions with 4DCT simulation, DCA planning, and amplitude gated delivery to treat the lesion. I explained that this treatment carries ~90% durable local control probability, but does not prevent the manifestation of additional lesions in the future. Fortunately if additional lesions were to show up, SBRT can be performed again as needed. We discussed the logistics of receiving radiation therapy in detail including the need for a 1-time planning session. This can occur in the next week. We reviewed the potential side effects of treatment namely, fatigue, pneumonitis, and fibrosis. After discussing the risks, benefits and alternatives to radiation therapy, Ms. Guerra was amenable to pursuing radiotherapy. All questions were answered to the patient's satisfaction. We also discussed her home situation, where she feels overextended in caring full-time for her who is suffering from Alzheimer's. She has enrolled him in medicaid, however she has found it difficult to secure services for him. Therefore I recommended she speak with our nurse navigator, who may be able to assist her. We instructed the patient that if there were any questions,concerns or changes in clinical status in the interim to contact us. Recommendations SBRT to the RLL lesion 60 Gy in 5 fractions with DCA 4DCT simulation in the next week Referral to nurse navigator for help with home care needs Billing Statement Total time of [45] minutes was spent preparing for the visit [3], obtaining HPI [10], examining the patient [3], reviewing diagnostic tests [4], discussing management options [15], coordinating care [2], and writing this note [8]. MATHIEU MASON MD July 04, 2020 11:46
== END ==
LOC: M ONCR 09:46
PROVIDERS: ATTEND General Practice
DX: C78.01 Secondary malignant neoplasm of right lung (principal); Z85.3 Personal history of malignant neoplasm of breast

== ENCOUNTER 2020-08-02 13:20 | Outpatient (RCR) | payer MEDICARE | END 2020-08-14 | LOC: M ONCR 13:20 | PROVIDERS: ATTEND General Practice | DX: C34.31 Malignant neoplasm of lower lobe, right bronchus or lung (principal) ==

== ENCOUNTER → 2020-09-13 | Outpatient (CLI) | payer MEDICARE ==
--- NOTE | 2020-09-16 11:04 | ECHO ---
ECHOCARDIOGRAM DATE OF PROCEDURE: 09/13/2020 Age: 75 Gender: Female Height: Weight: REFERRING PHYSICIAN: Asha Cummins M.D. PATIENT LOCATION: Outpatient. INDICATION: Chemotherapy monitoring. MEASUREMENTS: 2D Measurements: IVS 1.0 cm LVPW 0.94 cm LV 5.3 cm Aortic root 3.0 cm LA 3.3 cm Doppler Measurements: Peak velocity across the LVOT 0.62 m/sec Mitral E 0.40 Mitral A 0.9 with a ratio of 0.4 Maximum tricuspid valve velocity 2.6 m/sec 2D COMMENTS: 1. Normal left ventricular size and wall thickness with a low normal global left ventricular systolic function. The estimated left ventricular systolic ejection fraction is 50-55%. 2. Subsequently, the left atrium appeared to be mildly enlarged. Normal right atrium and right ventricle. 3. The atrial septum appeared to be normal without evidence of defect or shunt. 4. Normal aortic root. 5. A small pericardial effusion was noted. No evidence of cardiac tamponade. 6. Minimally calcified aortic valve with normal leaflet excursion. Mildly calcified mitral annulus with normal anterior mitral valve leaflet motion. Normal tricuspid valve and pulmonic valve. The proximal pulmonary artery branches also appear to be normal. 7. There was an echo free space in the liver that measured 7.58 cm x 9.65 cm. DOPPLER: It detects trace aortic regurgitation, moderate mitral regurgitation and mild tricuspid regurgitation. The calculated pulmonary artery systolic pressure is between 30-40 mmHg. Abnormal relaxation pattern was noted across the mitral valve leaflets as well as the mitral valve annulus consistent with grade 1 left ventricular diastolic dysfunction. IMPRESSION: 1. Low normal left ventricular systolic function. There are some features of grade 1 left ventricular diastolic dysfunction manifested by abnormal relaxation. 2. Aortic valve sclerosis with trace aortic regurgitation, but no aortic stenosis. 3. Mitral annulus calcification with moderate mitral regurgitation. 4. Subsequently, the left atrium is mildly enlarged. 5. Mild tricuspid regurgitation with mild pulmonary hypertension. 6. A small pericardial effusion was noted. No evidence of cardiac tamponade. 7. An echo free space structure noted in the liver is consistent with a liver cyst.
== END ==
LOC: M CARPUL 10:22
PROVIDERS: ATTEND Internal Medicine Medical Oncology
DX: C77.3 Secondary and unspecified malignant neoplasm of axilla and upper limb lymph nodes (principal); I27.20 Pulmonary hypertension, unspecified; I31.3 Pericardial effusion (noninflammatory); I35.0 Nonrheumatic aortic (valve) stenosis; I36.1 Nonrheumatic tricuspid (valve) insufficiency; I51.7 Cardiomegaly

== ENCOUNTER → 2020-10-28 | Outpatient (CLI) | payer MEDICARE ==
[~2020-10-28] MED LIST changes: +ISOVUE-370 76% 100ML VIAL As Ordered ONE
--- NOTE | 2020-10-28 13:56 | REP ---
INDICATION: LUNG CA COMPARISON: Multiple the latest 01/22/2020 TECHNIQUE: Standard helical technique after the intravenous administration of 100 cc Isovue 370 FINDINGS: Mediastinal and right hilar adenopathy has developed since the last exam. There are no pleural or pericardial effusions. There is no significant change in appearance of the imaged upper abdomen. Multiple hepatic cysts are again noted status quo. There is no significant change in appearance of the imaged osseous structures. Evaluation of the lung monzon shows a large area of consolidation in the right lower lobe which represents a change from the prior exam and is seen in conjunction with varicoid and saccular bronchiectatic changes. The lung monzon are otherwise unchanged. IMPRESSION: 1. Large area of consolidation in the right lower lobe as described above and seen in conjunction with adenopathy. Although the finding likely represents infectious etiology, certainly, concomitant neoplastic etiology cannot be ruled out. Close follow-up is recommended. 2. Other findings as described above. <Electronically signed by Alexi Vieyra > 10/28/20 0376
== END ==
LOC: M RAD 13:02
PROVIDERS: ATTEND General Practice
DX: C34.31 Malignant neoplasm of lower lobe, right bronchus or lung (principal)
CPT/HCPCS: 71260; Q9967

== ENCOUNTER → 2020-11-06 | Outpatient (CLI) | payer MEDICARE ==
[~2020-11-06] MED LIST changes: -ISOVUE-370 76% 100ML VIAL As Ordered ONE
--- NOTE | 2020-11-07 09:04 | RADONC ---
Radiation Oncology Hx/FUP Radiation Oncology Hx/FUP Date of Service: Nov 06, 2020 Pt Identifier Leatha Guerra is a 75 year old female seen for a followup visit today at the department of radiation oncology for a history of stage IV breast cancer ER/MD- HER2+ diagnosed in 2013 in remission on maintenance herceptin/perjeta, who has recently diagnosed NSCLC of the RLL, [id number] stage IA2 v. oligoprogressive breast cancer (pathologic consultation at [facility] favored NSCLC). She completed SBRT 60 Gy in 5 fractions from 07/29/20-08/02/20. Diagnosis/Treatment History Oncologic History From Dr. Cummins's recent note: Left modified radical mastectomy, right prophylactic mastectomy 05/2013. - T2 (4.5 cm) N2 (15/; + LORI) ER/MD negative, HER2/yessi positive invasive ductal carcinoma. - Staging workup revealed right 5th, 6th and left 7th rib metastatic foci, 6 mm left upper lobe noncalcified nodule, right liver lesion positive for metastatic breast cancer. Taxotere/Herceptin/Perjeta four cycles July - September 2013. Trastuzumab/pertuzumab maintenance q. 21 days 01/2014 - 05/2018. Denosumab q. 12 weeks 2013 - 2017, held after resolution of demonstrable bone metastases and to avoid toxicity. Parenteral iron infusion as needed since 2018. Restarted trastuzumab/pertuzumab 08/2018 for subcentimeter coalescing lung nodules on chest CT 08/2018. 04/29/20 PET-CT showing uptake in a 2 cm RLL nodule 06/03/20 EBUS and biopsy revealing adenocarcinoma PDL1 60%. Outside consultation favors NSCLC as opposed to breast cancer Recent data: RLL consolidation bronchial thickening suggestive of inflammation in the treatment field, prior nodule not well visualized. There are several small mediastinal LN increased in prominence compared to immediate prior study Item Value Date Time CA 27.29 20.0 U/mL 05/27/20 1042 CA 27.29 14.4 U/mL 06/17/20 0959 CA 27.29 45.7 U/mL H 08/20/20 1040 CA 27.29 81.8 U/mL H 09/30/20 1022 CA 27.29 108.4 U/mL H 10/22/20 1027 Interval History Here with her daughter. 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 She has longstanding [place] in the right ear, therefore she cannot hear at all today and we are communicating with pad and paper. She has no pain associated with the shingles. No CP, no increase in baseline SOB. She has no cough. She lost her this past weekend, grieving from this. Current Therapy Herceptin/perjeta Stage NSCLC RLL [id number] stage IA2 Breast cancer stage IV HER2+ ER/MD- Social History: 10 pack year former smoker Drinks 1 glass wine per week Allergies / Meds Allergies: Coded Allergies: iron (Verified Adverse Reaction, Severe, BP dropped significantly, seizure, 04/04/19) phenobarbital (Verified Adverse Reaction, Intermediate, Agitation, 04/04/19) codeine (Verified Adverse Reaction, Mild, Hyperactivity, 04/04/19) meperidine (Verified Adverse Reaction, Mild, N+V, 04/04/19) Home Meds Reported Medications Covid-19 Vacc, Mrna([employer])/Pf ([employer] Covid19 Vacc (Unapprov)) 30 Mcg/0.3 Ml Vial, 30 MCG IM, VIAL 06/17/20 Metoprolol Succinate (Metoprolol Succinate) 100 Mg Tab.er.24h, 100 MG PO QPM 10/09/19 Propylene Glycol/Peg 400/Pf (Systane 0.3-0.4% Eye Drop) 1 Each Droperette, 2 DROP OU BID 08/07/19 Acetaminophen (Tylenol Arthritis) 650 Mg Tablet.er, 1300 MG PO QHS, TAB 04/03/19 Calcium/Vitamin D (Calcium 500-Vit D3 200 Tablet) 1 Each Tablet, 1 TAB PO BID 06/14/18 Diphenhydramine HCl (Benadryl) 25 Mg Cap, 50 MG PO QHS, CAP 07/31/16 Ubidecarenone (Co Q-10) 10 Mg Cap, 20 MG PO QPM 07/31/16 Levothyroxine Sodium (LEVOTHYROXINE SODIUM) 75 Mcg Tab, 75 MG PO QAM 07/31/16 Fluticasone Propionate (Flonase Allergy Relief) 50 Mcg/Act Spr, 1 SPRAY NA DAILY PRN for NASAL CONGESTION, SPR 07/31/16 Alprazolam (Alprazolam) 0.25 Mg Tab, 0.25 MG PO QHS 07/31/16 Atorvastatin Calcium (Atorvastatin Calcium) 20 Mg Tab, 20 MG PO QPM 07/31/16 Enalapril Maleate (Enalapril Maleate) 10 Mg Tab, 20 MG PO DAILY 07/31/16 Review of Systems Review of Systems General: Reports: ROS Unobtainable ([place]) Physical Examination Vital Signs Wt 124 T 98 P 81 RR 18 BP 154/78 O2 96% Pain 0 Fatigue 1 General Exam: Alert, No Acute Distress Eye Exam: PERRLA, EOMI ENT EXAM: Mucous membr. moist/pink, Other ENT (Left facial crusting vesicular skin lesions) Neck Exam: Supple Chest Exam: Clear to auscultation, Normal air movement; Negative: Wheezing Heart Exam: Rate Normal Abdomen Exam: Soft Extremity Exam: Negative: Edema Neuro Exam: Normal Gait, Normal Speech; Negative: Cranial Nerves 3-12 NL (Left CNVIII) Psych Exam: Mental status NL Diagnostic and Laboratory Diagnostic Review Radiologic images, relevant labs and pathology reports were personally reviewed and discussed with Ms. Guerra. Assessment and Plan Impression Assessment Ms. Guerra is a 75 year old female with a history of stage IV breast cancer ER/MD- HER2+ diagnosed in 2013 in remission on maintenance herceptin/perjeta, who has recently diagnosed NSCLC of the RLL, [id number] stage IA2 v. oligoprogressive breast cancer (pathologic consultation at [facility] favored NSCLC). She completed SBRT 60 Gy in 5 fractions from 07/29/20-08/02/20. On her current CT I see evidence of active inflammation and fibrosis in the RLL treatment field, the treated nodule is not clearly visible. This is consistent with post-radiation changes in the absence of clinical pneumonitis. This sort of finding typical resolves within a few months from onset forming a stable scar. My immediate concern however is the rising CA27-29. There is evidence of inc reased adenopathy in the mediastinum. Given these findings I have ordered a PET-CT to be done in 2 weeks, I will repeat CA27-29 at that time to index with the PET. I will alert Dr. Cummins of this plan, and I will see Leatha back in 2 weeks to discuss next steps. Performance Status ECOG 1 Plan PET-CT CA27-29 at time of PET Follow up in 2 weeks Ms. Guerra was encouraged to call with questions or concerns in the interim period. Billing Statement Total time of [36] minutes was spent preparing for the visit [4], obtaining HPI [7], examining the patient [2], reviewing diagnostic tests [4], discussing management options [9], coordinating care [3], and writing this note [7]. MATHIEU MASON MD Nov 06, 2020 16:56
== END ==
LOC: M ONCR 13:23
PROVIDERS: ATTEND General Practice
DX: C34.31 Malignant neoplasm of lower lobe, right bronchus or lung (principal); C50.912 Malignant neoplasm of unspecified site of left female breast; Z79.899 Other long term (current) drug therapy; Z87.891 Personal history of nicotine dependence; Z88.5 Allergy status to narcotic agent; Z88.8 Allergy status to other drugs, medicaments and biological substances; Z92.3 Personal history of irradiation

== ENCOUNTER → 2020-11-21 | Outpatient (CLI) | payer MEDICARE | LOC: M LAB 11:12 | PROVIDERS: ATTEND General Practice | DX: C34.31 Malignant neoplasm of lower lobe, right bronchus or lung (principal) ==

== ENCOUNTER → 2020-11-25 | Outpatient (CLI) | payer MEDICARE ==
--- NOTE | 2020-11-26 09:21 | REP ---
INDICATION: RESTAGING RLL CANCER C34.31. COMPARISON: Multiple prior PET-CT scans the latest 04/29/2020. Latest prior CT of the chest 10/28/2020. TECHNIQUE: After the intravenous administration of 8.93 mCi of FDG 18 triplane whole-body PET-CT was performed from the skull base to the mid thigh. FINDINGS: There is abnormal hypermetabolic activity seen in the mediastinum and right hilum. The mediastinal hypermetabolism has a maximal SUV value of 11.31 seen in the subcarinal region in the maximal right hilar hypermetabolic activity has an SUV value of 10.0. This is consistent with the mediastinal and right hilar adenopathy seen on the latest prior contrast-enhanced diagnostic chest CT of 10/28/2020. Scattered areas of hypermetabolism are seen in the right lower lobe and having a maximal SUV value of 4.33 with the degree of hypermetabolism increasing the closer against to the right hilum. On CT this area represents a patchy opacity with air bronchograms the appearance of which has changed little when today's nondiagnostic CT is compared to the prior diagnostic chest CT of 10/28/2020. This, however, has all developed since the last PET CT scan. No other abnormal foci of hypermetabolic activity are seen in the neck, chest, abdomen, or pelvis. There is a single focus of hypermetabolic activity seen in the spinous process of L4, however, the maximal SUV value of this single region is 2.5. IMPRESSION: 1. There is mediastinal, right hilar, and right lower lobe hypermetabolic activity as described above. Whether the mckenna uptake represents metastatic disease or is reactive due to the opacity in the right lower lobe which is suspicious for pneumonitis cannot be determined by this exam. I do, however, favor reactive adenopathy secondary to pneumonia. The hypermetabolic nodule seen in the right lower lobe on the prior PET-CT scan cannot be distinguished from the patchy hypermetabolism seen in the lung parenchyma today further causing a degree of obfuscating findings.. 2. Single focus of hypermetabolism in the axial skeleton as described above. This should be correlated clinically with additional follow-up. <Electronically signed by Alexi Vieyra > 11/26/20 0982
== END ==
LOC: M PLARAD 08:11
PROVIDERS: ATTEND General Practice
DX: C34.31 Malignant neoplasm of lower lobe, right bronchus or lung (principal)
CPT/HCPCS: 78815; A9552

== ENCOUNTER → 2020-11-28 | Outpatient (CLI) | payer MEDICARE ==
--- NOTE | 2020-11-28 14:33 | RADONC ---
Radiation Oncology Hx/FUP Radiation Oncology Hx/FUP Date of Service: Nov 28, 2020 Pt Identifier Leatha Guerra is a 75 year old female seen for a followup visit today at the department of radiation oncology for a history of stage IV breast cancer ER/DE- HER2+ diagnosed in 2013 in remission on maintenance herceptin/perjeta, who has recently diagnosed NSCLC of the RLL, [id number] stage IA2 v. oligoprogressive breast cancer (pathologic consultation at [facility] favored NSCLC). She completed SBRT 60 Gy in 5 fractions from 07/29/20-08/02/20. Diagnosis/Treatment History Oncologic History From Dr. Cummins's recent note: Left modified radical mastectomy, right prophylactic mastectomy 05/2013. - T2 (4.5 cm) N2 (15/; + LORI) ER/DE negative, HER2/yessi positive invasive ductal carcinoma. - Staging workup revealed right 5th, 6th and left 7th rib metastatic foci, 6 mm left upper lobe noncalcified nodule, right liver lesion positive for metastatic breast cancer. Taxotere/Herceptin/Perjeta four cycles July - September 2013. Trastuzumab/pertuzumab maintenance q. 21 days 01/2014 - 05/2018. Denosumab q. 12 weeks 2013 - 2017, held after resolution of demonstrable bone metastases and to avoid toxicity. Parenteral iron infusion as needed since 2018. Restarted trastuzumab/pertuzumab 08/2018 for subcentimeter coalescing lung nodules on chest CT 08/2018. 04/29/20 PET-CT showing uptake in a 2 cm RLL nodule 06/03/20 EBUS and biopsy revealing adenocarcinoma PDL1 60%. Outside consultation favors NSCLC as opposed to breast cancer Recent data: RLL consolidation bronchial thickening suggestive of inflammation in the treatment field, prior nodule not well visualized. There are several small mediastinal LN increased in prominence compared to immediate prior study Item Value Date Time CA 27.29 20.0 U/mL 05/27/20 1042 CA 27.29 14.4 U/mL 06/17/20 0959 CA 27.29 45.7 U/mL H 08/20/20 1040 CA 27.29 81.8 U/mL H 09/30/20 1022 CA 27.29 108.4 U/mL H 10/22/20 1027 Recent data: Item Value Date Time CA 27.29 205.8 U/mL H 11/21/20 1143 11/26/20 PET-CT Marked avidity in right hilar and mediastinal suggestive of malignant mckenna progression. Patchy low grade uptake in the RLL consistent with evolving post-radiation fibrosis. No additional foci of abnormal hypermetabolism. Interval History Leatha feels somewhat better, her shingles and hearing impairment have resolved. She is still morning the loss of her but is feeling better from this as well. She has no CP, or SOB. She does have some new onset left leg and foot pain. Focal aching, not radiating. Not overly bothersome. Current Therapy Herceptin/perjeta Stage NSCLC RLL [id number] stage IA2 Breast cancer stage IV HER2+ ER/DE- Social History: 10 pack year former smoker Drinks 1 glass wine per week Allergies / Meds Allergies: Coded Allergies: iron (Verified Adverse Reaction, Severe, BP dropped significantly, seizure, 04/04/19) phenobarbital (Verified Adverse Reaction, Intermediate, Agitation, 04/04/19) codeine (Verified Adverse Reaction, Mild, Hyperactivity, 04/04/19) meperidine (Verified Adverse Reaction, Mild, N+V, 04/04/19) Home Meds Reported Medications Covid-19 Vacc, Mrna(CrowdPC)/Pf ([facility] Covid19 Vacc (Unapprov)) 30 Mcg/0.3 Ml Vial, 30 MCG IM, VIAL 06/17/20 Metoprolol Succinate (Metoprolol Succinate) 100 Mg Tab.er.24h, 100 MG PO QPM 10/09/19 Propylene Glycol/Peg 400/Pf (Systane 0.3-0.4% Eye Drop) 1 Each Droperette, 2 DROP OU BID 08/07/19 Acetaminophen (Tylenol Arthritis) 650 Mg Tablet.er, 1300 MG PO QHS, TAB 04/03/19 Calcium/Vitamin D (Calcium 500-Vit D3 200 Tablet) 1 Each Tablet, 1 TAB PO BID 06/14/18 Diphenhydramine HCl (Benadryl) 25 Mg Cap, 50 MG PO QHS, CAP 07/31/16 Ubidecarenone (Co Q-10) 10 Mg Cap, 20 MG PO QPM 07/31/16 Levothyroxine Sodium (LEVOTHYROXINE SODIUM) 75 Mcg Tab, 75 MG PO QAM 07/31/16 Fluticasone Propionate (Flonase Allergy Relief) 50 Mcg/Act Spr, 1 SPRAY NA DAILY PRN for NASAL CONGESTION, SPR 07/31/16 Alprazolam (Alprazolam) 0.25 Mg Tab, 0.25 MG PO QHS 07/31/16 Atorvastatin Calcium (Atorvastatin Calcium) 20 Mg Tab, 20 MG PO QPM 07/31/16 Enalapril Maleate (Enalapril Maleate) 10 Mg Tab, 20 MG PO DAILY 07/31/16 Physical Examination Vital Signs Wt 119 lbs T 97.8 P 94 RR 18 BP 160/95 O2 97% Pain 0 Fatigue 0 General Exam: Alert, Cooperative, No Acute Distress Eye Exam: PERRLA, EOMI; Negative: Other Eye Symptoms (Resolved shingles OD and cheek) ENT EXAM: Ext Auditory Canal Nml Extremity Exam: Negative: Edema Neuro Exam: Normal Gait, Normal Speech, Cranial Nerves 3-12 NL Psych Exam: Mental status NL Diagnostic and Laboratory Diagnostic Review Radiologic images, relevant labs and pathology reports were personally reviewed and discussed with Ms. Guerra. Assessment and Plan Impression Assessment Ms. Guerra is a 75 year old female with a history of stage IV breast cancer ER/DE- HER2+ diagnosed in 2013 in remission on maintenance herceptin/perjeta, who has recently diagnosed NSCLC of the RLL, [id number] stage IA2 v. oligoprogressive breast cancer (pathologic consultation at [facility] favored NSCLC). She completed SBRT 60 Gy in 5 fractions from 07/29/20-08/02/20. Discussed that the the PET-CT results suggest multifocal progression in the mediastinum and no convincing evidence of residual RLL lesion, rather this area looks like evolving post-RT fibrosis. She has no other convincing areas of progression. She is feeling much more well than last time I saw her when her had passed days before and she had active shingles and hearing loss. I discussed the implications of the PET-CT as well as the doubling of her CA 27- 29 in the matter of a month. This is either progressive metastatic breast cancer or mediastinal progression of unrelated NSCLC. The tumor marker in this setting is most commonly elevated in breast cancer but may also be elevated in some lung cancers, so it's only real utility is in surveillance for treatment effect. Given her current status and aversion to side effects, I would not advocate for additional RT to the mediastinum to address this problem, rather I think she wo uld be better served with the augmentation of her current systemic therapy regimen, possibly with the addition of PD-1 inhibition, as her most recent biopsy was PD-L1 60%, which suggests it might respond favorably. It will be up to Dr. Cummins and Leatha to decide what to do. Leatha is seeing her next Wednesday. I will see Leatha in 3 months time. Performance Status ECOG 1 Plan Do not recommend additional RT at this time Would suggest consideration of immunotherapy Clare RT for additional symptoms or refractory disease Follow up in 3 months time Ms. Guerra was encouraged to call with questions or concerns in the interim period. Billing Statement Total time of [26] minutes was spent preparing for the visit [1], obtaining HPI [4], examining the patient [2], reviewing diagnostic tests [4], discussing management options [8], coordinating care [1], and writing this note [6]. MATHIEU MASON MD Nov 28, 2020 14:33
== END ==
LOC: M ONCR 12:53
PROVIDERS: ATTEND General Practice
DX: C34.31 Malignant neoplasm of lower lobe, right bronchus or lung (principal); Z79.899 Other long term (current) drug therapy; Z85.3 Personal history of malignant neoplasm of breast; Z88.5 Allergy status to narcotic agent; Z88.8 Allergy status to other drugs, medicaments and biological substances; Z90.12 Acquired absence of left breast and nipple; Z92.21 Personal history of antineoplastic chemotherapy

== ENCOUNTER → 2020-12-10 | Outpatient (CLI) | payer MEDICARE ==
--- NOTE | 2020-12-10 13:30 | REP ---
INDICATION: CHOCO EDEMA. COMPARISON: None. TECHNIQUE: Multiple ultrasonographic images of the deep venous structures of the bilateral lower extremity were obtained from the inguinal ligament to the ankle. Venous compression techniques, color doppler imaging, and augmentation techniques were also obtained where appropriate. As per the ACR guidelines the anterior tibial vein can not be effectively evaluated. Only compression techniques in the calf on the peroneal and posterior tibial veins was attempted/performed. FINDINGS: There is no abnormal echogenic material seen within any of the visualized deep venous structures that would suggest acute thrombosis. Coaptation is unremarkable throughout. Doppler interrogation shows an expected response to respiratory variability and augmentation in the thigh. Compression techniques in the calf were unobtainable. The color flow images show what appears to be a normal vascular pattern throughout the thigh. IMPRESSION: There is no ultrasonographic evidence of deep venous thrombosis involving any of the visualized deep venous structures of the bilateral lower extremity as described above. Due to technical parameters calf vein DVT can not be ruled out. <Electronically signed by Alexi Vieyra > 12/10/20 [id number]
== END ==
LOC: M RAD 12:49
PROVIDERS: ATTEND Internal Medicine Pulmonary Disease
DX: R60.9 Edema, unspecified (principal)

== ENCOUNTER → 2020-12-31 | Outpatient (CLI) | payer MEDICARE ==
--- NOTE | 2021-01-03 10:46 | ECHO ---
ECHOCARDIOGRAM DATE OF PROCEDURE: 12/31/2020 Age: 75 Gender: Female Height: 59 inches Weight: 120 pounds Body Surface Area: 1.48 m2 PATIENT LOCATION: Outpatient. REFERRING PHYSICIAN: Dr. Asha Cummins INDICATION: Breast cancer. Potentially cardiotoxic chemotherapy. MEASUREMENTS: 2D Measurements: RV 3.1 cm LV 4.4 cm Septum 1.1 cm Posterior wall 1.1 cm Aortic Root 3.3 cm LA 4.0 cm LVEF 55% Doppler Measurements: AV 1.25 m/s LVOT 0.8 m/s LVOT diameter 1.9 cm MV-E 46, A 81, EA ratio 0.6 Early mitral deceleration time 285 msec E prime medial 4.5, A prime medial 8, E prime lateral 9 Average E/E prime ratio 6.8/PCWP 10.4 mmHg PV - 0.8 m/s Pulmonary artery acceleration time 148 msec PASP 17 mmHg IVC 1.3 cm COMMENTS: Normal sinus rhythm without intraventricular conduction disturbance. M-mode and 2-dimensional echocardiography was performed with pulse, continuous wave, color flow, and tissue Doppler studies. Normal left ventricular size, wall thickness, and wall motion. Borderline left atrial enlargement with grade 1 LV diastolic dysfunction but currently normal estimated mean left atrial pressure. Normal right heart chamber sizes, wall motion, and estimated pulmonary arterial pressure. Slightly reduced IVC size with normal collapse suggestive of a slightly low central venous pressure. Normal aortic dimensions. Normal appearing and functioning aortic valve. Mild degenerative changes of the mitral valvular apparatus without inflow tract obstruction but mild insufficiency. Normal appearing tricuspid valve with very mild insufficiency. No apparent intracardiac mass or pericardial effusion. MTDD
== END ==
LOC: M CARPUL 11:05
PROVIDERS: ATTEND Internal Medicine Medical Oncology
DX: C50.812 Malignant neoplasm of overlapping sites of left female breast (principal); C79.89 Secondary malignant neoplasm of other specified sites

== ENCOUNTER → 2021-01-16 | Outpatient (CLI) | payer MEDICARE ==
[~2021-01-16] MED LIST changes: +[UNRECOGNIZED DRUG - SUPPLY] XX
== END ==
LOC: M RAD 11:56
PROVIDERS: ATTEND Internal Medicine Medical Oncology
DX: R93.6 Abnormal findings on diagnostic imaging of limbs (principal); M79.672 Pain in left foot

== ENCOUNTER → 2021-02-13 | Outpatient (CLI) | payer MEDICARE ==
[~2021-02-13] MED LIST changes: +PROHANCE 279.3MG/ML 15ML VIAL As Ordered ONE
--- NOTE | 2021-02-13 10:59 | REP ---
INDICATION: LT LEG PAIN H/O CA ABN IMAG. COMPARISON: Prior plain film examination 01/16/2021 reviewed. TECHNIQUE: Pre and post contrast 3T MRI of the left lower leg attention fibula was performed utilizing various sequences. Gadolinium utilized: 11 cc ProHance FINDINGS: There is abnormal lysis of at least 50% of the cortex of the proximal fibula with abnormal T1 and T2 prolongation within the soft tissues immediately surrounding and in the musculature of the anterior compartment and within the deep part of the posterior compartment. There is abnormal gadolinium enhancement seen immediately surrounding the soft tissues of the affected portion of the fibula and within the musculature and soft tissues of the deep part of the posterior compartment. There is a small cm sized focal area of T1 shortening seen between the medial and lateral heads of the gastrocnemius muscle more distally. This suppresses out completely using fat suppression sequences. IMPRESSION: 1. There is a destructive lesion in the proximal fibula with associated surrounding edema and enhancement as described above. This is suspicious for metastatic disease since the patient has a history of carcinoma. 2. There is an incidental lipoma within the superficial part of the posterior compartment as described above. <Electronically signed by Alexi Vieyra > 02/13/21 [id number]
== END ==
LOC: M RAD 08:50
PROVIDERS: ATTEND Internal Medicine Medical Oncology
DX: M89.9 Disorder of bone, unspecified (principal); R22.42 Localized swelling, mass and lump, left lower limb; M79.605 Pain in left leg
CPT/HCPCS: 73720; A9576

== ENCOUNTER → 2021-03-04 | Outpatient (CLI) | payer MEDICARE ==
[~2021-03-04] MED LIST changes: -PROHANCE 279.3MG/ML 15ML VIAL As Ordered ONE
== END ==
LOC: M ONCR 09:21
PROVIDERS: ATTEND General Practice
DX: C34.31 Malignant neoplasm of lower lobe, right bronchus or lung (principal); C79.51 Secondary malignant neoplasm of bone; M21.379 Foot drop, unspecified foot; Z87.891 Personal history of nicotine dependence; Z88.5 Allergy status to narcotic agent; Z79.899 Other long term (current) drug therapy

== ENCOUNTER → 2021-03-05 | Outpatient (REF) | payer MEDICARE ==
[2021-03-05 11:01] LABS: INR 1.08; PROTHROMBIN TIME 14.4 SECONDS (12.7-14.5)
== END ==
LOC: M LAB REF 10:31
PROVIDERS: ATTEND Internal Medicine Pulmonary Disease
DX: C34.31 Malignant neoplasm of lower lobe, right bronchus or lung (principal)

== ENCOUNTER → 2021-03-10 | Outpatient (CLI) | payer MEDICARE ==
[~2021-03-10] MED LIST changes: +ISOVUE-370 76% 100ML VIAL As Ordered ONE
== END ==
LOC: M RAD 10:43
PROVIDERS: ATTEND Internal Medicine Pulmonary Disease
DX: C34.31 Malignant neoplasm of lower lobe, right bronchus or lung (principal); R91.8 Other nonspecific abnormal finding of lung field; C79.81 Secondary malignant neoplasm of breast
CPT/HCPCS: 71260; Q9967

== ENCOUNTER 2021-03-12 14:38 | Outpatient (RCR) | payer MEDICARE ==
[~2021-03-12 14:38] MED LIST changes: -ISOVUE-370 76% 100ML VIAL As Ordered ONE
== END 2021-03-17 ==
LOC: M ONCR 14:38
PROVIDERS: ATTEND General Practice
DX: C34.31 Malignant neoplasm of lower lobe, right bronchus or lung (principal); C79.51 Secondary malignant neoplasm of bone

== ENCOUNTER 2021-03-26 07:49 | Outpatient (RCR) | payer MEDICARE ==
[2021-04-16] MEDS ORDERED: LEVO50TA5 PO (11:30)
== END 2021-04-14 ==
LOC: M ONCR 07:49
PROVIDERS: ATTEND General Practice
DX: C34.31 Malignant neoplasm of lower lobe, right bronchus or lung (principal)

== ENCOUNTER → 2021-04-21 | Outpatient (CLI) | payer MEDICARE ==
[~2021-04-21] MED LIST changes: +LEVO50TA5 PO; +TRIA1CR80 TOP
== END ==
LOC: M ONCR 13:12
PROVIDERS: ATTEND General Practice
DX: C79.51 Secondary malignant neoplasm of bone (principal); M21.372 Foot drop, left foot; L59.8 Other specified disorders of the skin and subcutaneous tissue related to radiation

== ENCOUNTER → 2021-05-26 | Outpatient (CLI) | payer MEDICARE ==
[~2021-05-26] MED LIST changes: +AUGM0.05 EXT; +LEVOTAB10 PO
== END ==
LOC: M PLARAD 13:16
PROVIDERS: ATTEND Internal Medicine
DX: C79.89 Secondary malignant neoplasm of other specified sites (principal); R91.8 Other nonspecific abnormal finding of lung field; K57.30 Diverticulosis of large intestine without perforation or abscess without bleeding
CPT/HCPCS: 78815; A9552

== ENCOUNTER → 2021-06-25 | Outpatient (CLI) | payer MEDICARE | LOC: M ONCR 11:37 | PROVIDERS: ATTEND General Practice | DX: C34.31 Malignant neoplasm of lower lobe, right bronchus or lung (principal); C79.51 Secondary malignant neoplasm of bone; Z85.3 Personal history of malignant neoplasm of breast; L27.0 Generalized skin eruption due to drugs and medicaments taken internally; Z79.811 Long term (current) use of aromatase inhibitors; Z87.891 Personal history of nicotine dependence; Z90.13 Acquired absence of bilateral breasts and nipples; Z92.3 Personal history of irradiation; Z88.5 Allergy status to narcotic agent; Z88.8 Allergy status to other drugs, medicaments and biological substances; M21.372 Foot drop, left foot ==

== ENCOUNTER 2021-07-07 13:51 | Outpatient (RCR) | payer MEDICARE ==
[2021-07-09] MEDS ORDERED: PRED10TA2 PO (13:59)
[2021-07-09] MEDS ORDERED: FAMO20TA PO (13:59)
== END 2021-07-15 ==
LOC: M ONCR 13:51
PROVIDERS: ATTEND General Practice
DX: C34.31 Malignant neoplasm of lower lobe, right bronchus or lung (principal)

== ENCOUNTER → 2021-07-11 | Outpatient (CLI) | payer MEDICARE ==
[~2021-07-11] MED LIST changes: +FAMO20TA PO; +PRED10TA2 PO
== END ==
LOC: M RAD 14:02
PROVIDERS: ATTEND Specialist
DX: C50.912 Malignant neoplasm of unspecified site of left female breast (principal)

== ENCOUNTER 2021-07-18 13:51 | Inpatient (IN) | payer MEDICARE ==
[~2021-07-18] VITALS: Ht 149.9 cm; Wt 51.6 kg
[2021-07-18] MEDS ORDERED: LEVO75TA4 PO (14:18)
[2021-07-18] MEDS ORDERED: COEN100T PO (14:18)
[2021-07-18] MEDS ORDERED: ENAL20TA11 PO (14:18)
[2021-07-18] MEDS ORDERED: ALBU8.5H PO (14:18)
[2021-07-18 15:08] LABS: VENOUS BASE EXCESS 4.4 (-2.0-2.0); VENOUS HCO3 31.1 MEQ/L (23.0-27.0); VENOUS O2 SATURATION 49.2 % (60.0-80.0); VENOUS PARTIAL PRESSURE CO2 54.6 mmHg (38.0-50.0); VENOUS PARTIAL PRESSURE O2 28.7 mmHg (30.0-50.0); VENOUS PH 7.373 UNITS (7.330-7.430); VENOUS STANDARD HCO3 27.2 MEQ/L; VENOUS TOTAL CO2 32.7 MEQ/L (24.0-28.0)
[2021-07-18 15:15] LABS: APPEARANCE, URINE CLEAR (CLEAR); BACTERIA, URINE AUTO NEGATIVE (NEGATIVE); BILIRUBIN, URINE AUTO NEGATIVE (NEGATIVE); BLOOD, URINE BLOOD 1+ (NEGATIVE); COLOR, URINE STRAW (YELLOW); GLUCOSE, URINE (UA) AUTO NEGATIVE (NEGATIVE); KETONE, URINE AUTO NEGATIVE (NEGATIVE); LEUKOCYTE ESTERASE, URINE AUTO NEGATIVE (NEGATIVE); NITRITE, URINE AUTO NEGATIVE (NEGATIVE); PROTEIN, URINE AUTO NEGATIVE (NEGATIVE); RBC, URINE AUTO 1 /HPF (0-3); SPECIFIC GRAVITY URINE AUTO 1.004 (1.002-1.035); SQUAMOUS EPITHELIAL CELL UR AU 1 /HPF (0-6); UROBILINOGEN, URINE AUTO 0.2 mg/dL (0.0-2.0); WBC, URINE AUTO 1 /HPF (0-3)
[2021-07-18 15:16] LABS: BASO % 0.1 % (0.0-1.0); EOS % 0.1 % (0.0-3.0); HEMATOCRIT 41.8 % (36.0-47.0); HEMOGLOBIN 13.4 g/dl (12.0-15.5); LYMPH # 0.5 10^3/uL (1.5-5.0); LYMPH % 2.5 % (24.0-44.0); MEAN CORPUSCULAR HEMOGLOBIN 26.5 pg (27.0-33.0); MEAN CORPUSCULAR HGB CONC 32.1 g/dl (32.0-36.5); MEAN CORPUSCULAR VOLUME 82.8 fl (80.0-96.0); MONO # 0.3 10^3/uL (0.0-0.8); MONO % 1.7 % (2.0-8.0); NEUTROPHILS # 17.2 10^3/uL (1.5-8.5); PLATELET COUNT, AUTOMATED 452 10^3/uL (150-450); RED BLOOD COUNT 5.05 10^6/uL (4.00-5.40); WHITE BLOOD COUNT 18.1 10^3/uL (4.0-10.0)
[2021-07-18 15:25] LABS: INR 1.03; PROTHROMBIN TIME 13.9 SECONDS (12.7-14.5)
[2021-07-18 15:41] LABS: CK-MB VALUE MASS 1.8 NG/ML (<3.6); MB/CK RELATIVE INDEX 3.67 (< OR =4)
[2021-07-18 15:45] LABS: ALBUMIN 3.7 GM/DL (3.2-5.2); ALT/SGPT 31 U/L (12-78); BILIRUBIN,DIRECT 0.2 MG/DL (0.0-0.2); BILIRUBIN,TOTAL 0.5 MG/DL (0.2-1.0); BLOOD UREA NITROGEN 15 MG/DL (7-18); CALCIUM LEVEL 9.2 MG/DL (8.8-10.2); CARBON DIOXIDE LEVEL 30 MEQ/L (21-32); CHLORIDE LEVEL 97 MEQ/L (98-107); CREATININE FOR GFR 0.95 MG/DL (0.55-1.30); GLOMERULAR FILTRATION RATE > 60.0 (>39); GLUCOSE, FASTING 154 MG/DL (70-100); NT-PRO BNP 1488 PG/ML (<450); POTASSIUM SERUM 4.4 MEQ/L (3.5-5.1); SODIUM LEVEL 135 MEQ/L (136-145); TOTAL PROTEIN 7.3 GM/DL (6.4-8.2)
[2021-07-18] MEDS ORDERED: ISOVUE-370 76% 100ML VIAL As Ordered ONE (15:51)
[2021-07-18 16:43] LABS: CK-MB VALUE MASS 1.5 NG/ML (<3.6); MB/CK RELATIVE INDEX 4.17 (< OR =4)
[2021-07-18] MEDS ORDERED: PIPERACILLIN/TAZOBACTAM SOD 3.375 GM in D5W MINI-BAG PLUS 50 ML IV ONE (17:45)
[2021-07-18] MEDS ORDERED: MOM 30ML SUSPENSION UDC PO PRN (18:25)
[2021-07-18] MEDS ORDERED: SODIUM CHLORIDE 0.9% 1000ML IV STA (18:25)
[2021-07-18] MEDS ORDERED: MAALOX 30 ML SUSP *UDC PO PRN (18:25)
[2021-07-18] MEDS ORDERED: ACETAMINOPHEN TAB 650MG DOSE (2X325MG) PO PRN (18:25)
[2021-07-18] MEDS ORDERED: HOME MED LIST COMPLETE! XX SCH (18:45)
[2021-07-18] MEDS ORDERED: FLUTICASONE PROP 0.05% NASAL SPRAY 16 GM (FLONASE) PRN (18:50)
[2021-07-18] MEDS: NS 1,000 ML IV SCH (18:56)
[2021-07-18] MEDS ORDERED: IPRATROPIUM 0.5MG/ALBUTEROL 2.5MG INH SOL UD 3ML (DUONEB) NEB PRN (19:05)
[2021-07-18] MEDS ORDERED: IPRATROPIUM 0.5MG/ALBUTEROL 2.5MG INH SOL UD 3ML (DUONEB) NEB SCH (20:00)
[2021-07-18] MEDS ORDERED: VANCOMYCIN HCL 1,000 MG, VIAL MATE ADAPTER 1 EACH in NS 250 ML IV ONE (20:00)
[2021-07-18] MEDS: methylPREDNISolone 125MG 2ML VIAL IV SCH (20:17)
[2021-07-18] MEDS ORDERED: LEVALBUTEROL 1.25 MG/0.5 ML CONCENTRATE NEB INH PRN (20:50)
[2021-07-18 21:19] LABS: MAGNESIUM LEVEL 2.6 MG/DL (1.8-2.4)
[2021-07-18] MEDS ORDERED: BENZONATATE 100MG CAPSULE PO PRN (22:30)
[2021-07-18] MEDS: METOPROLOL SUCC (TopROL XL) 100MG *XL* TAB PO SCH (22:49)
[2021-07-18] MEDS: guaiFENesin ER 600 MG TAB PO SCH (22:49)
[2021-07-18] MEDS: DOCUSATE SODIUM 100MG CAPSULE PO SCH (22:49)
[2021-07-18] MEDS: CALCIUM/VITAMIN D 500 MG TAB PO SCH (22:49)
[2021-07-18] MEDS: ATORVASTATIN 20 MG TAB PO SCH (22:49)
[2021-07-19] MEDS ORDERED: NS 1,000 ML IV ONE
[2021-07-19 01:03] VITALS: BP 150/90
[2021-07-19] MEDS: methylPREDNISolone 125MG 2ML VIAL IV SCH ×2 (02:37→07:38)
[2021-07-19] MEDS: PIPERACILLIN/TAZOBACTAM SOD 3.375 GM in D5W MINI-BAG PLUS 50 ML IV SCH ×4 (02:38→17:36)
[2021-07-19] MEDS: NS 1,000 ML IV SCH (02:38)
[2021-07-19] MEDS: ALPRAZolam 0.25 MG TAB PO PRN ×2 (02:46→20:53)
[2021-07-19 04:20] LABS: BASO % 0.1 % (0.0-1.0); HEMATOCRIT 34.9 % (36.0-47.0); LYMPH # 0.4 10^3/uL (1.5-5.0); LYMPH % 3.5 % (24.0-44.0); MEAN CORPUSCULAR HEMOGLOBIN 26.7 pg (27.0-33.0); MEAN CORPUSCULAR HGB CONC 32.1 g/dl (32.0-36.5); MEAN CORPUSCULAR VOLUME 83.3 fl (80.0-96.0); MONO # 0.1 10^3/uL (0.0-0.8); MONO % 1.1 % (2.0-8.0); NEUTROPHILS # 10.4 10^3/uL (1.5-8.5); NEUTROPHILS % 94.7 % (36.0-66.0); PLATELET COUNT, AUTOMATED 363 10^3/uL (150-450); RED BLOOD COUNT 4.19 10^6/uL (4.00-5.40)
[2021-07-19 04:21] LABS: HEMOGLOBIN 11.2 g/dl (12.0-15.5)
[2021-07-19 04:32] LABS: ALBUMIN 2.9 GM/DL (3.2-5.2); ALT/SGPT 22 U/L (12-78); BILIRUBIN,TOTAL 0.4 MG/DL (0.2-1.0); BLOOD UREA NITROGEN 15 MG/DL (7-18); CALCIUM LEVEL 8.3 MG/DL (8.8-10.2); CARBON DIOXIDE LEVEL 28 MEQ/L (21-32); CHLORIDE LEVEL 105 MEQ/L (98-107); CREATININE FOR GFR 0.66 MG/DL (0.55-1.30); FREE T4 1.29 NG/DL (0.76-1.46); GLOMERULAR FILTRATION RATE > 60.0 (>39); GLUCOSE, FASTING 129 MG/DL (70-100); MAGNESIUM LEVEL 2.1 MG/DL (1.8-2.4); POTASSIUM SERUM 4.1 MEQ/L (3.5-5.1); SODIUM LEVEL 139 MEQ/L (136-145); TOTAL PROTEIN 5.8 GM/DL (6.4-8.2)
[2021-07-19 05:15] VITALS: BP 123/80
[2021-07-19] MEDS: LEVALBUTEROL 1.25 MG/0.5 ML CONCENTRATE NEB INH SCH ×4 (05:25→19:14)
[2021-07-19] MEDS: IPRATROPIUM 0.02% SOLN 0.5MG 2.5ML NEB INH SCH ×4 (05:25→19:14)
[2021-07-19] MEDS ORDERED: LEVOTHYROXINE 75MCG TABLET (0.075MG) PO SCH (06:00)
[2021-07-19 07:09] VITALS: BP 158/89
[2021-07-19] MEDS: CALCIUM/VITAMIN D 500 MG TAB PO SCH ×2 (07:39→20:53)
[2021-07-19] MEDS: guaiFENesin ER 600 MG TAB PO SCH ×2 (07:39→20:33)
[2021-07-19] MEDS: FAMOTIDINE 20 MG TAB PO SCH (07:39)
[2021-07-19] MEDS: CETIRIZINE (ZyrTEC) 10 MG TAB PO SCH (07:39)
[2021-07-19] MEDS: CO-ENZYME Q10 50 MG CAP PO SCH (07:39)
[2021-07-19] MEDS: DOCUSATE SODIUM 100MG CAPSULE PO SCH ×2 (07:40→20:31)
[2021-07-19] MEDS: ENOXAPARIN 40MG/0.4ML SYRINGE (J1650 PER 10MG) SC SCH (07:40)
[2021-07-19] MEDS ORDERED: VANCOMYCIN HCL 1,000 MG, VIAL MATE ADAPTER 1 EACH in NS 250 ML IV SCH (08:00)
[2021-07-19] MEDS ORDERED: predniSONE 10 MG TAB PO SCH (09:00)
[2021-07-19 11:44] VITALS: BP 138/65
[2021-07-19 15:48] VITALS: BP 132/67
[2021-07-19] MEDS: methylPREDNISolone 40MG 1ML VIAL IV SCH (17:36)
[2021-07-19 18:10] VITALS: BP 164/71
[2021-07-19] MEDS: LevoFLOXacin 750 MG TABLET PO SCH (20:33)
[2021-07-19] MEDS: ATORVASTATIN 20 MG TAB PO SCH (20:35)
[2021-07-19] MEDS: METOPROLOL SUCC (TopROL XL) 100MG *XL* TAB PO SCH (20:56)
[2021-07-19] MEDS ORDERED: VANCOMYCIN HCL 750 MG, VIAL MATE ADAPTER 1 EACH in NS 250 ML IV SCH (21:00)
[2021-07-20] MEDS: methylPREDNISolone 40MG 1ML VIAL IV SCH (00:25)
[2021-07-20] MEDS: LEVALBUTEROL 1.25 MG/0.5 ML CONCENTRATE NEB INH SCH ×4 (01:39→18:01)
[2021-07-20] MEDS: IPRATROPIUM 0.02% SOLN 0.5MG 2.5ML NEB INH SCH ×4 (01:39→18:00)
[2021-07-20 04:32] VITALS: BP 136/74
[2021-07-20] MEDS: LEVOTHYROXINE 50MCG TABLET (0.05MG) PO SCH (05:11)
[2021-07-20 08:50] LABS: BASO % 0.1 % (0.0-1.0); HEMATOCRIT 36.6 % (36.0-47.0); HEMOGLOBIN 11.8 g/dl (12.0-15.5); LYMPH # 0.6 10^3/uL (1.5-5.0); LYMPH % 2.6 % (24.0-44.0); MEAN CORPUSCULAR HEMOGLOBIN 26.7 pg (27.0-33.0); MEAN CORPUSCULAR HGB CONC 32.2 g/dl (32.0-36.5); MEAN CORPUSCULAR VOLUME 82.8 fl (80.0-96.0); MONO # 0.6 10^3/uL (0.0-0.8); MONO % 2.6 % (2.0-8.0); NEUTROPHILS # 20.3 10^3/uL (1.5-8.5); NEUTROPHILS % 93.7 % (36.0-66.0); PLATELET COUNT, AUTOMATED 352 10^3/uL (150-450); RED BLOOD COUNT 4.42 10^6/uL (4.00-5.40); WHITE BLOOD COUNT 21.6 10^3/uL (4.0-10.0)
[2021-07-20 09:13] LABS: ALBUMIN 2.8 GM/DL (3.2-5.2); ALT/SGPT 29 U/L (12-78); BILIRUBIN,TOTAL 0.4 MG/DL (0.2-1.0); BLOOD UREA NITROGEN 15 MG/DL (7-18); CALCIUM LEVEL 9.1 MG/DL (8.8-10.2); CARBON DIOXIDE LEVEL 26 MEQ/L (21-32); CHLORIDE LEVEL 103 MEQ/L (98-107); GLOMERULAR FILTRATION RATE > 60.0 (>39); GLUCOSE, FASTING 114 MG/DL (70-100); MAGNESIUM LEVEL 2.1 MG/DL (1.8-2.4); POTASSIUM SERUM 3.7 MEQ/L (3.5-5.1); SODIUM LEVEL 138 MEQ/L (136-145); TOTAL PROTEIN 6.1 GM/DL (6.4-8.2)
[2021-07-20] MEDS: CETIRIZINE (ZyrTEC) 10 MG TAB PO SCH (09:20)
[2021-07-20] MEDS: CALCIUM/VITAMIN D 500 MG TAB PO SCH ×2 (09:20→20:43)
[2021-07-20] MEDS: ENOXAPARIN 40MG/0.4ML SYRINGE (J1650 PER 10MG) SC SCH (09:20)
[2021-07-20] MEDS: DOCUSATE SODIUM 100MG CAPSULE PO SCH ×2 (09:20→20:43)
[2021-07-20] MEDS: CO-ENZYME Q10 50 MG CAP PO SCH (09:20)
[2021-07-20] MEDS: guaiFENesin ER 600 MG TAB PO SCH ×2 (09:20→20:43)
[2021-07-20] MEDS: FAMOTIDINE 20 MG TAB PO SCH (09:20)
[2021-07-20] MEDS: predniSONE 20 MG TAB PO SCH (09:22)
[2021-07-20 09:24] LABS: C REACTIVE PROTEIN QUANTITATIV 2.63 MG/DL (0.00-0.30)
[2021-07-20 09:24] LABS: C REACTIVE PROTEIN QUANTITATIV 1.25 MG/DL (0.00-0.30)
[2021-07-20 09:25] LABS: C REACTIVE PROTEIN QUANTITATIV 3.12 MG/DL (0.00-0.30)
[2021-07-20] MEDS ORDERED: MUCI600T31 PO (12:39)
[2021-07-20] MEDS ORDERED: LEVO750T13 PO (12:39)
[2021-07-20] MEDS ORDERED: PRED10TA2 PO (12:39)
[2021-07-20 14:00] VITALS: BP 147/69
[2021-07-20] MEDS ORDERED: LEVO50TA5 PO (15:00)
[2021-07-20] MEDS: ATORVASTATIN 20 MG TAB PO SCH (20:43)
[2021-07-20 20:47] VITALS: BP 144/70
[2021-07-20] MEDS: METOPROLOL SUCC (TopROL XL) 100MG *XL* TAB PO SCH (20:47)
[2021-07-20] MEDS: ALPRAZolam 0.25 MG TAB PO PRN (20:53)
[2021-07-21] MEDS: IPRATROPIUM 0.02% SOLN 0.5MG 2.5ML NEB INH SCH ×2 (02:32→07:31)
[2021-07-21] MEDS: LEVALBUTEROL 1.25 MG/0.5 ML CONCENTRATE NEB INH SCH ×2 (02:32→07:31)
[2021-07-21 05:23] LABS: BASO % 0.1 % (0.0-1.0); EOS % 0.1 % (0.0-3.0); HEMATOCRIT 34.9 % (36.0-47.0); HEMOGLOBIN 11.4 g/dl (12.0-15.5); LYMPH # 1.1 10^3/uL (1.5-5.0); LYMPH % 6.5 % (24.0-44.0); MEAN CORPUSCULAR HEMOGLOBIN 26.9 pg (27.0-33.0); MEAN CORPUSCULAR HGB CONC 32.7 g/dl (32.0-36.5); MEAN CORPUSCULAR VOLUME 82.3 fl (80.0-96.0); MONO # 1.1 10^3/uL (0.0-0.8); MONO % 6.4 % (2.0-8.0); NEUTROPHILS # 14.8 10^3/uL (1.5-8.5); NEUTROPHILS % 86.1 % (36.0-66.0); PLATELET COUNT, AUTOMATED 338 10^3/uL (150-450); RED BLOOD COUNT 4.24 10^6/uL (4.00-5.40); WHITE BLOOD COUNT 17.2 10^3/uL (4.0-10.0)
[2021-07-21] MEDS: LEVOTHYROXINE 50MCG TABLET (0.05MG) PO SCH (05:25)
[2021-07-21] MEDS: LevoFLOXacin 750 MG TABLET PO SCH (05:25)
[2021-07-21 05:53] LABS: ALBUMIN 2.7 GM/DL (3.2-5.2); ALT/SGPT 33 U/L (12-78); BILIRUBIN,TOTAL 0.3 MG/DL (0.2-1.0); BLOOD UREA NITROGEN 18 MG/DL (7-18); CALCIUM LEVEL 8.7 MG/DL (8.8-10.2); CARBON DIOXIDE LEVEL 29 MEQ/L (21-32); CHLORIDE LEVEL 103 MEQ/L (98-107); CREATININE FOR GFR 0.74 MG/DL (0.55-1.30); GLOMERULAR FILTRATION RATE > 60.0 (>39); GLUCOSE, FASTING 86 MG/DL (70-100); MAGNESIUM LEVEL 2.1 MG/DL (1.8-2.4); POTASSIUM SERUM 4.1 MEQ/L (3.5-5.1); SODIUM LEVEL 139 MEQ/L (136-145); TOTAL PROTEIN 5.4 GM/DL (6.4-8.2)
[2021-07-21 06:00] VITALS: BP 143/69
[2021-07-21] MEDS: guaiFENesin ER 600 MG TAB PO SCH (08:58)
[2021-07-21] MEDS: CETIRIZINE (ZyrTEC) 10 MG TAB PO SCH (08:58)
[2021-07-21] MEDS: CALCIUM/VITAMIN D 500 MG TAB PO SCH (08:58)
[2021-07-21] MEDS: FAMOTIDINE 20 MG TAB PO SCH (08:58)
[2021-07-21] MEDS: predniSONE 20 MG TAB PO SCH (08:58)
[2021-07-21] MEDS: CO-ENZYME Q10 50 MG CAP PO SCH (08:58)
[2021-07-21] MEDS: ENOXAPARIN 40MG/0.4ML SYRINGE (J1650 PER 10MG) SC SCH (09:00)
[2021-07-21] MEDS: DOCUSATE SODIUM 100MG CAPSULE PO SCH (09:00)
== END 2021-07-21 13:18 | disposition home or self-care (01) | DRG 194 ==
LOC: M ED 13:51 → M ED INP 18:25 → ENRESERV 22:46 → M PCU 07-19 00:47 → M MSPAV 07-19 18:02
PROVIDERS: ADMIT Internal Medicine; ATTEND Internal Medicine
DX: J18.9 Pneumonia, unspecified organism (principal); C38.3 Malignant neoplasm of mediastinum, part unspecified; C79.51 Secondary malignant neoplasm of bone; E87.2 Acidosis; C34.90 Malignant neoplasm of unspecified part of unspecified bronchus or lung; I10 Essential (primary) hypertension; E03.9 Hypothyroidism, unspecified; J45.909 Unspecified asthma, uncomplicated; K21.9 Gastro-esophageal reflux disease without esophagitis; I77.1 Stricture of artery; F41.9 Anxiety disorder, unspecified; L72.0 Epidermal cyst; Z92.21 Personal history of antineoplastic chemotherapy; Z92.25 Personal history of immunosuppression therapy; D75.839 Thrombocytosis, unspecified; Z79.899 Other long term (current) drug therapy; Z88.5 Allergy status to narcotic agent; Z88.8 Allergy status to other drugs, medicaments and biological substances; Z79.52 Long term (current) use of systemic steroids; Z90.13 Acquired absence of bilateral breasts and nipples; Z66 Do not resuscitate; Z92.3 Personal history of irradiation

== ENCOUNTER 2021-08-11 09:00 | Outpatient (RCR) | payer MEDICARE ==
[~2021-08-11 09:00] MED LIST changes: +ALBU8.5H PO; +COEN100T PO; +ENAL20TA11 PO; +LEVO750T13 PO; +MUCI600T31 PO
== END 2021-08-14 ==
LOC: M ONCR 09:00
PROVIDERS: ATTEND General Practice
DX: C34.31 Malignant neoplasm of lower lobe, right bronchus or lung (principal)

== ENCOUNTER 2021-09-05 08:33 | Inpatient (IN) | payer MEDICARE ==
[~2021-09-05] VITALS: Ht 149.9 cm; Wt 57.7 kg
[~2021-09-05 08:33] MED LIST changes: +LEVO1TAB40 PO; -LEVO750T13 PO
[2021-09-05] MEDS: ENOXAPARIN 40MG/0.4ML SYRINGE (J1650 PER 10MG) SC SCH (09:00)
[2021-09-05] MEDS: predniSONE 50 MG TAB PO SCH (09:00)
[2021-09-05 09:14] LABS: BASO % 0.1 % (0.0-1.0); EOS # 0.4 10^3/uL (0.0-0.5); EOS % 2.2 % (0.0-3.0); HEMOGLOBIN 11.6 g/dl (12.0-15.5); LYMPH # 0.5 10^3/uL (1.5-5.0); LYMPH % 2.9 % (24.0-44.0); MEAN CORPUSCULAR HEMOGLOBIN 26.7 pg (27.0-33.0); MEAN CORPUSCULAR HGB CONC 32.2 g/dl (32.0-36.5); MEAN CORPUSCULAR VOLUME 82.8 fl (80.0-96.0); MONO # 0.7 10^3/uL (0.0-0.8); MONO % 4.3 % (2.0-8.0); NEUTROPHILS % 89.9 % (36.0-66.0); PLATELET COUNT, AUTOMATED 255 10^3/uL (150-450); RED BLOOD COUNT 4.35 10^6/uL (4.00-5.40); WHITE BLOOD COUNT 15.6 10^3/uL (4.0-10.0)
[2021-09-05] MEDS ORDERED: cefTRIAXone SOD 2 GM in D5W MINI-BAG PLUS 50 ML IV ONE (09:20)
[2021-09-05 09:58] LABS: CK-MB VALUE MASS 3.2 NG/ML (<3.6)
[2021-09-05 10:07] LABS: ALT/SGPT 71 U/L (12-78); BILIRUBIN,DIRECT 0.3 MG/DL (0.0-0.2); BILIRUBIN,TOTAL 0.8 MG/DL (0.2-1.0); BLOOD UREA NITROGEN 13 MG/DL (7-18); CALCIUM LEVEL 8.9 MG/DL (8.8-10.2); CARBON DIOXIDE LEVEL 28 MEQ/L (21-32); CHLORIDE LEVEL 98 MEQ/L (98-107); CREATININE FOR GFR 0.85 MG/DL (0.55-1.30); GLOMERULAR FILTRATION RATE > 60.0 (>39); GLUCOSE, FASTING 89 MG/DL (70-100); NT-PRO BNP 8502 PG/ML (<450); POTASSIUM SERUM 4.3 MEQ/L (3.5-5.1); SODIUM LEVEL 134 MEQ/L (136-145); TOTAL PROTEIN 6.2 GM/DL (6.4-8.2)
[2021-09-05] MEDS ORDERED: ISOVUE-370 76% 100ML VIAL As Ordered ONE (10:26)
[2021-09-05] MEDS: COMBIVENT RESPIMAT 100-20MCG INHALER 4GM INH SCH ×3 (11:05→11:28)
[2021-09-05] MEDS ORDERED: NITROGLYCERIN 2% OINT 1 GM *U/D* PKT TOP ONE (11:35)
[2021-09-05] MEDS ORDERED: FUROSEMIDE 20MG/2ML VIAL (J1940) As Ordered ONE (11:42)
[2021-09-05] MEDS ORDERED: FUROSEMIDE 20MG/2ML VIAL (J1940) IV ONE (11:45)
[2021-09-05 12:35] LABS: MB/CK RELATIVE INDEX 6.12 (< OR =4)
[2021-09-05] MEDS ORDERED: MUCI1TAB16 PO (13:51)
[2021-09-05] MEDS ORDERED: FAMO20TA5 PO (13:51)
[2021-09-05] MEDS ORDERED: IPRA0.00 INH (13:51)
[2021-09-05] MEDS ORDERED: LEVO50TA5 PO (13:51)
[2021-09-05] MEDS ORDERED: LEVO75TA4 PO (13:51)
[2021-09-05] MEDS ORDERED: HOME MED LIST COMPLETE! XX SCH (13:55)
[2021-09-05] MEDS ORDERED: FAMOTIDINE 20 MG TAB PO PRN (16:35)
[2021-09-05] MEDS ORDERED: ALBUTEROL 90 MCG/ACT 8GM HFA INHALER INH PRN (16:35)
[2021-09-05] MEDS: PIPERACILLIN/TAZOBACTAM SOD 3.375 GM in D5W MINI-BAG PLUS 50 ML IV SCH (17:41)
[2021-09-05] MEDS: AZITHROMYCIN INJ 500 MG, VIAL MATE ADAPTER 1 EACH in NS 250 ML IV SCH (19:00)
[2021-09-05 20:30] VITALS: BP 126/73
[2021-09-05] MEDS: IPRATROPIUM 0.5MG/ALBUTEROL 2.5MG INH SOL UD 3ML (DUONEB) NEB SCH (20:50)
[2021-09-05] MEDS: guaiFENesin ER 600 MG TAB PO SCH (20:59)
[2021-09-05] MEDS: ATORVASTATIN 20 MG TAB PO SCH (20:59)
[2021-09-05] MEDS: CALCIUM/VITAMIN D 500 MG TAB PO SCH (20:59)
[2021-09-05] MEDS: METOPROLOL SUCC (TopROL XL) 100MG *XL* TAB PO SCH (20:59)
[2021-09-05] MEDS: CETIRIZINE (ZyrTEC) 10 MG TAB PO SCH (21:00)
[2021-09-05] MEDS: CO-ENZYME Q10 50 MG CAP PO SCH (21:06)
[2021-09-06] VITALS (21 sets, daily range): BP systolic 108–131; BP diastolic 58–80; O2SAT 87–98
[2021-09-06] MEDS: PIPERACILLIN/TAZOBACTAM SOD 3.375 GM in D5W MINI-BAG PLUS 50 ML IV SCH ×4 (00:16→18:17)
[2021-09-06] MEDS ORDERED: ACETAMINOPHEN TAB 650MG DOSE (2X325MG) PO PRN (01:55)
[2021-09-06] MEDS ORDERED: LEVALBUTEROL 1.25 MG/0.5 ML CONCENTRATE NEB INH PRN (02:25)
[2021-09-06] MEDS: IPRATROPIUM 0.5MG/ALBUTEROL 2.5MG INH SOL UD 3ML (DUONEB) NEB SCH (02:27)
[2021-09-06] MEDS: LEVOTHYROXINE 50MCG TABLET (0.05MG) PO SCH (05:42)
[2021-09-06] MEDS: LEVALBUTEROL 1.25 MG/0.5 ML CONCENTRATE NEB INH SCH ×5 (07:15→23:18)
[2021-09-06 08:03] LABS: ALBUMIN 2.7 GM/DL (3.2-5.2); ALT/SGPT 51 U/L (12-78); BILIRUBIN,TOTAL 0.7 MG/DL (0.2-1.0); BLOOD UREA NITROGEN 20 MG/DL (7-18); CALCIUM LEVEL 9.5 MG/DL (8.8-10.2); CARBON DIOXIDE LEVEL 30 MEQ/L (21-32); CHLORIDE LEVEL 99 MEQ/L (98-107); CREATININE FOR GFR 0.95 MG/DL (0.55-1.30); GLOMERULAR FILTRATION RATE > 60.0 (>39); GLUCOSE, FASTING 89 MG/DL (70-100); MAGNESIUM LEVEL 2.4 MG/DL (1.8-2.4); PHOSPHORUS LEVEL 5.1 MG/DL (2.5-4.9); POTASSIUM SERUM 4.4 MEQ/L (3.5-5.1); SODIUM LEVEL 137 MEQ/L (136-145)
[2021-09-06] MEDS ORDERED: ENALAPRIL MALEATE 10 MG TAB PO SCH (09:00)
[2021-09-06] MEDS ORDERED: FUROSEMIDE 40MG/4ML VIAL (J1940) IV SCH (09:00)
[2021-09-06 09:05] LABS: CK-MB VALUE MASS 2.1 NG/ML (<3.6); MB/CK RELATIVE INDEX 4.88 (< OR =4)
[2021-09-06] MEDS: FUROSEMIDE 20MG/2ML VIAL (J1940) IV SCH (09:28)
[2021-09-06] MEDS: CALCIUM/VITAMIN D 500 MG TAB PO SCH ×2 (09:28→20:05)
[2021-09-06] MEDS: predniSONE 50 MG TAB PO SCH (09:28)
[2021-09-06] MEDS: guaiFENesin ER 600 MG TAB PO SCH ×2 (09:28→20:05)
[2021-09-06] MEDS: ENOXAPARIN 40MG/0.4ML SYRINGE (J1650 PER 10MG) SC SCH (09:29)
[2021-09-06 09:40] LABS: BASO % 0.1 % (0.0-1.0); EOS % 0.1 % (0.0-3.0); HEMATOCRIT 31.2 % (36.0-47.0); LYMPH # 0.3 10^3/uL (1.5-5.0); LYMPH % 2.2 % (24.0-44.0); MEAN CORPUSCULAR HEMOGLOBIN 26.4 pg (27.0-33.0); MEAN CORPUSCULAR HGB CONC 32.1 g/dl (32.0-36.5); MEAN CORPUSCULAR VOLUME 82.3 fl (80.0-96.0); MONO # 0.7 10^3/uL (0.0-0.8); MONO % 4.9 % (2.0-8.0); NEUTROPHILS # 12.3 10^3/uL (1.5-8.5); NEUTROPHILS % 91.9 % (36.0-66.0); PLATELET COUNT, AUTOMATED 217 10^3/uL (150-450); RED BLOOD COUNT 3.79 10^6/uL (4.00-5.40); WHITE BLOOD COUNT 13.4 10^3/uL (4.0-10.0)
[2021-09-06] MEDS ORDERED: ISOVUE-370 76% 100ML VIAL As Ordered ONE (15:16)
[2021-09-06 15:26] LABS: CK-MB VALUE MASS 2.8 NG/ML (<3.6); MB/CK RELATIVE INDEX 4.75 (< OR =4)
[2021-09-06] MEDS: AZITHROMYCIN INJ 500 MG, VIAL MATE ADAPTER 1 EACH in NS 250 ML IV SCH (20:03)
[2021-09-06] MEDS: ATORVASTATIN 20 MG TAB PO SCH (20:05)
[2021-09-06] MEDS: CO-ENZYME Q10 50 MG CAP PO SCH (20:05)
[2021-09-06] MEDS: CETIRIZINE (ZyrTEC) 10 MG TAB PO SCH (20:06)
[2021-09-06] MEDS: METOPROLOL SUCC (TopROL XL) 100MG *XL* TAB PO SCH (20:06)
[2021-09-07] VITALS (25 sets, daily range): BP systolic 115–169; BP diastolic 57–82; O2SAT 72–98
[2021-09-07] MEDS: PIPERACILLIN/TAZOBACTAM SOD 3.375 GM in D5W MINI-BAG PLUS 50 ML IV SCH ×4 (01:30→17:22)
[2021-09-07] MEDS: LEVALBUTEROL 1.25 MG/0.5 ML CONCENTRATE NEB INH SCH ×6 (03:08→23:42)
[2021-09-07] MEDS: LEVOTHYROXINE 75MCG TABLET (0.075MG) PO SCH (05:25)
[2021-09-07 06:24] LABS: BASO % 0.1 % (0.0-1.0); EOS % 0.2 % (0.0-3.0); HEMATOCRIT 29.8 % (36.0-47.0); HEMOGLOBIN 9.5 g/dl (12.0-15.5); LYMPH # 0.3 10^3/uL (1.5-5.0); LYMPH % 2.2 % (24.0-44.0); MEAN CORPUSCULAR HEMOGLOBIN 25.7 pg (27.0-33.0); MEAN CORPUSCULAR HGB CONC 31.9 g/dl (32.0-36.5); MEAN CORPUSCULAR VOLUME 80.8 fl (80.0-96.0); MONO # 0.7 10^3/uL (0.0-0.8); MONO % 5.5 % (2.0-8.0); NEUTROPHILS # 12.1 10^3/uL (1.5-8.5); NEUTROPHILS % 91.3 % (36.0-66.0); PLATELET COUNT, AUTOMATED 228 10^3/uL (150-450); RED BLOOD COUNT 3.69 10^6/uL (4.00-5.40); WHITE BLOOD COUNT 13.2 10^3/uL (4.0-10.0)
[2021-09-07 06:49] LABS: BLOOD UREA NITROGEN 24 MG/DL (7-18); CALCIUM LEVEL 8.9 MG/DL (8.8-10.2); CARBON DIOXIDE LEVEL 28 MEQ/L (21-32); CHLORIDE LEVEL 101 MEQ/L (98-107); CREATININE FOR GFR 0.78 MG/DL (0.55-1.30); GLOMERULAR FILTRATION RATE > 60.0 (>39); GLUCOSE, FASTING 91 MG/DL (70-100); PHOSPHORUS LEVEL 4.6 MG/DL (2.5-4.9); POTASSIUM SERUM 4.2 MEQ/L (3.5-5.1); SODIUM LEVEL 138 MEQ/L (136-145)
[2021-09-07] MEDS: CALCIUM/VITAMIN D 500 MG TAB PO SCH ×2 (09:19→21:30)
[2021-09-07] MEDS: guaiFENesin ER 600 MG TAB PO SCH ×2 (09:19→21:30)
[2021-09-07] MEDS: ENALAPRIL MALEATE 10 MG TAB PO SCH (09:20)
[2021-09-07] MEDS: FUROSEMIDE 20MG/2ML VIAL (J1940) IV SCH (09:20)
[2021-09-07] MEDS: predniSONE 50 MG TAB PO SCH (09:20)
[2021-09-07] MEDS: ENOXAPARIN 40MG/0.4ML SYRINGE (J1650 PER 10MG) SC SCH (09:20)
[2021-09-07] MEDS: AZITHROMYCIN INJ 500 MG, VIAL MATE ADAPTER 1 EACH in NS 250 ML IV SCH (18:39)
[2021-09-07] MEDS: ATORVASTATIN 20 MG TAB PO SCH (21:29)
[2021-09-07] MEDS: METOPROLOL SUCC (TopROL XL) 100MG *XL* TAB PO SCH (21:29)
[2021-09-07] MEDS: CO-ENZYME Q10 50 MG CAP PO SCH (21:29)
[2021-09-07] MEDS: CETIRIZINE (ZyrTEC) 10 MG TAB PO SCH (21:30)
[2021-09-08] MEDS: PIPERACILLIN/TAZOBACTAM SOD 3.375 GM in D5W MINI-BAG PLUS 50 ML IV SCH ×4 (00:50→20:46)
[2021-09-08 03:55] VITALS: BP 146/74
[2021-09-08] MEDS: LEVALBUTEROL 1.25 MG/0.5 ML CONCENTRATE NEB INH SCH (04:36)
[2021-09-08] MEDS ORDERED: guaiFENesin DM LIQ 10ML UD PO PRN (05:15)
[2021-09-08] MEDS ORDERED: methylPREDNISolone 125MG 2ML VIAL IV ONE (05:20)
[2021-09-08] MEDS: LEVALBUTEROL 1.25 MG/0.5 ML CONCENTRATE NEB INH PRN (05:34)
[2021-09-08] MEDS: LEVOTHYROXINE 50MCG TABLET (0.05MG) PO SCH (05:45)
[2021-09-08 05:52] LABS: ABG BASE EXCESS 1.7 (-2.0-2.0); ABG HCO3 24.9 MEQ/L (22.0-26.0); ABG O2 SATURATION 93.6 % (95.0-99.0); ABG PARTIAL PRESSURE CO2 33.7 mmHg (35.0-45.0); ABG PARTIAL PRESSURE O2 70.1 mmHg (75.0-100.0); ABG TOTAL CO2 25.9 MEQ/L (23.0-31.0); ABG pH (ARTERIAL) 7.486 UNITS (7.350-7.450)
[2021-09-08 06:06] LABS: BASO % 0.2 % (0.0-1.0); EOS % 0.3 % (0.0-3.0); HEMATOCRIT 32.5 % (36.0-47.0); HEMOGLOBIN 10.2 g/dl (12.0-15.5); LYMPH # 0.4 10^3/uL (1.5-5.0); LYMPH % 2.9 % (24.0-44.0); MEAN CORPUSCULAR HEMOGLOBIN 26.2 pg (27.0-33.0); MEAN CORPUSCULAR HGB CONC 31.4 g/dl (32.0-36.5); MEAN CORPUSCULAR VOLUME 83.5 fl (80.0-96.0); MONO # 0.6 10^3/uL (0.0-0.8); MONO % 4.1 % (2.0-8.0); NEUTROPHILS # 12.1 10^3/uL (1.5-8.5); NEUTROPHILS % 91.1 % (36.0-66.0); PLATELET COUNT, AUTOMATED 251 10^3/uL (150-450); RED BLOOD COUNT 3.89 10^6/uL (4.00-5.40); WHITE BLOOD COUNT 13.3 10^3/uL (4.0-10.0)
[2021-09-08 07:11] LABS: BLOOD UREA NITROGEN 21 MG/DL (7-18); CALCIUM LEVEL 9.3 MG/DL (8.8-10.2); CARBON DIOXIDE LEVEL 29 MEQ/L (21-32); CHLORIDE LEVEL 101 MEQ/L (98-107); CREATININE FOR GFR 0.86 MG/DL (0.55-1.30); GLOMERULAR FILTRATION RATE > 60.0 (>39); GLUCOSE, FASTING 79 MG/DL (70-100); MAGNESIUM LEVEL 2.1 MG/DL (1.8-2.4); NT-PRO BNP 7155 PG/ML (<450); PHOSPHORUS LEVEL 3.5 MG/DL (2.5-4.9); SODIUM LEVEL 137 MEQ/L (136-145)
[2021-09-08 07:26] VITALS: BP 160/70
[2021-09-08] MEDS: IPRATROPIUM 0.5MG/ALBUTEROL 2.5MG INH SOL UD 3ML (DUONEB) NEB SCH ×5 (07:46→23:48)
[2021-09-08] MEDS: guaiFENesin ER 600 MG TAB PO SCH ×2 (09:01→20:16)
[2021-09-08] MEDS: CALCIUM/VITAMIN D 500 MG TAB PO SCH ×2 (09:01→20:17)
[2021-09-08] MEDS: ENALAPRIL MALEATE 10 MG TAB PO SCH (09:01)
[2021-09-08] MEDS: predniSONE 50 MG TAB PO SCH (09:01)
[2021-09-08] MEDS: ENOXAPARIN 40MG/0.4ML SYRINGE (J1650 PER 10MG) SC SCH (09:01)
[2021-09-08] MEDS: FUROSEMIDE 20MG/2ML VIAL (J1940) IV SCH (09:01)
[2021-09-08 11:50] VITALS: BP 131/74
[2021-09-08 15:53] VITALS: BP 127/70
[2021-09-08 19:52] LABS: C REACTIVE PROTEIN QUANTITATIV 6.56 MG/DL (0.00-0.30)
[2021-09-08 20:05] VITALS: BP 113/65
[2021-09-08] MEDS: CO-ENZYME Q10 50 MG CAP PO SCH (20:16)
[2021-09-08] MEDS: ATORVASTATIN 20 MG TAB PO SCH (20:18)
[2021-09-08] MEDS: CETIRIZINE (ZyrTEC) 10 MG TAB PO SCH (20:18)
[2021-09-08] MEDS: METOPROLOL SUCC (TopROL XL) 100MG *XL* TAB PO SCH (20:18)
[2021-09-08] MEDS ORDERED: cefTRIAXone SOD 1 GM in D5W MINI-BAG PLUS 50 ML IV SCH (21:00)
[2021-09-08] MEDS ORDERED: AZITHROMYCIN INJ 500 MG, VIAL MATE ADAPTER 1 EACH in NS 250 ML IV SCH (22:00)
[2021-09-08] MEDS: AZITHROMYCIN INJ 500 MG, VIAL MATE ADAPTER 1 EACH in NS 250 ML IV SCH (22:20)
[2021-09-08] MEDS ORDERED: METOPROLOL 5 MG/5 ML VIAL IV STA (22:46)
[2021-09-08 23:45] VITALS: BP 117/60
[2021-09-09] VITALS (7 sets, daily range): BP systolic 109–162; BP diastolic 40–67; O2SAT 90–91
[2021-09-09] MEDS: PIPERACILLIN/TAZOBACTAM SOD 3.375 GM in D5W MINI-BAG PLUS 50 ML IV SCH ×2 (01:09→05:35)
[2021-09-09] MEDS: IPRATROPIUM 0.5MG/ALBUTEROL 2.5MG INH SOL UD 3ML (DUONEB) NEB SCH ×4 (03:30→19:21)
[2021-09-09 05:06] LABS: BASO % 0.2 % (0.0-1.0); HEMATOCRIT 29.4 % (36.0-47.0); HEMOGLOBIN 9.4 g/dl (12.0-15.5); LYMPH # 0.3 10^3/uL (1.5-5.0); LYMPH % 1.7 % (24.0-44.0); MEAN CORPUSCULAR HEMOGLOBIN 26.5 pg (27.0-33.0); MEAN CORPUSCULAR VOLUME 82.8 fl (80.0-96.0); MONO # 0.7 10^3/uL (0.0-0.8); MONO % 4.2 % (2.0-8.0); NEUTROPHILS # 15.4 10^3/uL (1.5-8.5); NEUTROPHILS % 92.8 % (36.0-66.0); PLATELET COUNT, AUTOMATED 248 10^3/uL (150-450); RED BLOOD COUNT 3.55 10^6/uL (4.00-5.40); WHITE BLOOD COUNT 16.6 10^3/uL (4.0-10.0)
[2021-09-09] MEDS: LEVOTHYROXINE 75MCG TABLET (0.075MG) PO SCH (05:35)
[2021-09-09] MEDS: methylPREDNISolone 125MG 2ML VIAL IV SCH ×2 (05:36→17:56)
[2021-09-09 05:46] LABS: BLOOD UREA NITROGEN 21 MG/DL (7-18); CARBON DIOXIDE LEVEL 31 mmol/L (20-29); CHLORIDE LEVEL 100 MEQ/L (98-107); CREATININE FOR GFR 0.79 MG/DL (0.55-1.30); GLOMERULAR FILTRATION RATE > 60.0 (>39); GLUCOSE, FASTING 94 MG/DL (70-100); SODIUM LEVEL 137 MEQ/L (136-145)
[2021-09-09 05:47] LABS: CALCIUM LEVEL 9.1 MG/DL (8.8-10.2)
[2021-09-09] MEDS: CALCIUM/VITAMIN D 500 MG TAB PO SCH ×2 (09:08→20:35)
[2021-09-09] MEDS: guaiFENesin ER 600 MG TAB PO SCH ×2 (09:08→20:34)
[2021-09-09] MEDS: ENALAPRIL MALEATE 10 MG TAB PO SCH (09:08)
[2021-09-09] MEDS: ENOXAPARIN 40MG/0.4ML SYRINGE (J1650 PER 10MG) SC SCH (09:09)
[2021-09-09] MEDS: FUROSEMIDE 20MG/2ML VIAL (J1940) IV SCH (09:09)
[2021-09-09] MEDS: CO-ENZYME Q10 50 MG CAP PO SCH (20:32)
[2021-09-09] MEDS: CETIRIZINE (ZyrTEC) 10 MG TAB PO SCH (20:34)
[2021-09-09] MEDS: ATORVASTATIN 20 MG TAB PO SCH (20:34)
[2021-09-09] MEDS: METOPROLOL SUCC (TopROL XL) 100MG *XL* TAB PO SCH (20:35)
[2021-09-10] VITALS (7 sets, daily range): BP systolic 97–151; BP diastolic 55–87; O2SAT 92
[2021-09-10] MEDS: IPRATROPIUM 0.5MG/ALBUTEROL 2.5MG INH SOL UD 3ML (DUONEB) NEB SCH ×4 (01:09→19:20)
[2021-09-10 04:07] LABS: ASPERGILLUS GALACTOMANNAN AG 0.03 Index (0.00-0.49); FUNGITELL, SERUM <31 pg/mL (<80)
[2021-09-10] MEDS: LEVOTHYROXINE 50MCG TABLET (0.05MG) PO SCH (05:28)
[2021-09-10] MEDS: methylPREDNISolone 125MG 2ML VIAL IV SCH ×2 (05:28→18:29)
[2021-09-10 05:32] LABS: BASO % 0.1 % (0.0-1.0); HEMATOCRIT 29.9 % (36.0-47.0); HEMOGLOBIN 9.4 g/dl (12.0-15.5); LYMPH # 0.2 10^3/uL (1.5-5.0); MEAN CORPUSCULAR HEMOGLOBIN 26.1 pg (27.0-33.0); MEAN CORPUSCULAR HGB CONC 31.4 g/dl (32.0-36.5); MEAN CORPUSCULAR VOLUME 83.1 fl (80.0-96.0); MONO # 0.5 10^3/uL (0.0-0.8); MONO % 3.1 % (2.0-8.0); NEUTROPHILS # 15.3 10^3/uL (1.5-8.5); NEUTROPHILS % 94.3 % (36.0-66.0); PLATELET COUNT, AUTOMATED 288 10^3/uL (150-450); WHITE BLOOD COUNT 16.2 10^3/uL (4.0-10.0)
[2021-09-10 06:02] LABS: ALBUMIN 2.3 GM/DL (3.2-5.2); ALT/SGPT 57 U/L (12-78); BILIRUBIN,TOTAL 0.4 MG/DL (0.2-1.0); BLOOD UREA NITROGEN 23 MG/DL (7-18); CALCIUM LEVEL 8.6 MG/DL (8.8-10.2); CARBON DIOXIDE LEVEL 33 MEQ/L (21-32); CHLORIDE LEVEL 100 MEQ/L (98-107); CREATININE FOR GFR 0.68 MG/DL (0.55-1.30); GLOMERULAR FILTRATION RATE > 60.0 (>39); GLUCOSE, FASTING 119 MG/DL (70-100); MAGNESIUM LEVEL 2.2 MG/DL (1.8-2.4); POTASSIUM SERUM 4.4 MEQ/L (3.5-5.1); SODIUM LEVEL 136 MEQ/L (136-145); TOTAL PROTEIN 4.8 GM/DL (6.4-8.2)
[2021-09-10] MEDS: ENOXAPARIN 40MG/0.4ML SYRINGE (J1650 PER 10MG) SC SCH (09:41)
[2021-09-10] MEDS: CALCIUM/VITAMIN D 500 MG TAB PO SCH ×2 (09:41→20:46)
[2021-09-10] MEDS: PANTOPRAZOLE 40MG TAB (PROTONIX) PO SCH (09:41)
[2021-09-10] MEDS: guaiFENesin ER 600 MG TAB PO SCH ×2 (09:41→20:47)
[2021-09-10] MEDS: ENALAPRIL MALEATE 10 MG TAB PO SCH (09:41)
[2021-09-10 16:08] LABS: MYCOPLASMA PNEUMONIAE IgG 139 U/mL (0-99); MYCOPLASMA PNEUMONIAE IgM <770 U/mL (0-769)
[2021-09-10] MEDS: ATORVASTATIN 20 MG TAB PO SCH (20:46)
[2021-09-10] MEDS: CO-ENZYME Q10 50 MG CAP PO SCH (20:46)
[2021-09-10] MEDS: CETIRIZINE (ZyrTEC) 10 MG TAB PO SCH (20:47)
[2021-09-10] MEDS: METOPROLOL SUCC (TopROL XL) 100MG *XL* TAB PO SCH (20:48)
[2021-09-11] VITALS (39 sets, daily range): BP systolic 108–203; BP diastolic 57–116; O2SAT 88–96
[2021-09-11] MEDS: IPRATROPIUM 0.5MG/ALBUTEROL 2.5MG INH SOL UD 3ML (DUONEB) NEB SCH ×4 (02:00→20:00)
[2021-09-11] MEDS: LEVOTHYROXINE 75MCG TABLET (0.075MG) PO SCH (06:10)
[2021-09-11] MEDS: methylPREDNISolone 125MG 2ML VIAL IV SCH ×2 (06:10→18:16)
[2021-09-11 06:28] LABS: BASO % 0.1 % (0.0-1.0); HEMATOCRIT 30.9 % (36.0-47.0); HEMOGLOBIN 9.7 g/dl (12.0-15.5); LYMPH # 0.2 10^3/uL (1.5-5.0); MEAN CORPUSCULAR HGB CONC 31.4 g/dl (32.0-36.5); MEAN CORPUSCULAR VOLUME 82.8 fl (80.0-96.0); MONO # 0.4 10^3/uL (0.0-0.8); MONO % 2.3 % (2.0-8.0); NEUTROPHILS # 17.1 10^3/uL (1.5-8.5); NEUTROPHILS % 94.8 % (36.0-66.0); PLATELET COUNT, AUTOMATED 330 10^3/uL (150-450); RED BLOOD COUNT 3.73 10^6/uL (4.00-5.40)
[2021-09-11 07:26] LABS: ALT/SGPT 57 U/L (12-78); BLOOD UREA NITROGEN 20 MG/DL (7-18); CALCIUM LEVEL 8.6 MG/DL (8.8-10.2); CARBON DIOXIDE LEVEL 29 MEQ/L (21-32); CHLORIDE LEVEL 101 MEQ/L (98-107); CREATININE FOR GFR 0.65 MG/DL (0.55-1.30); GLOMERULAR FILTRATION RATE > 60.0 (>39); GLUCOSE, FASTING 101 MG/DL (70-100); POTASSIUM SERUM 4.5 MEQ/L (3.5-5.1); SODIUM LEVEL 136 MEQ/L (136-145)
[2021-09-11 07:27] LABS: ALBUMIN 2.4 GM/DL (3.2-5.2); BILIRUBIN,TOTAL 0.5 MG/DL (0.2-1.0); MAGNESIUM LEVEL 2.4 MG/DL (1.8-2.4); TOTAL PROTEIN 4.8 GM/DL (6.4-8.2)
[2021-09-11] MEDS: PANTOPRAZOLE 40MG TAB (PROTONIX) PO SCH (08:28)
[2021-09-11] MEDS: guaiFENesin ER 600 MG TAB PO SCH ×2 (08:28→21:22)
[2021-09-11] MEDS: ENALAPRIL MALEATE 10 MG TAB PO SCH (08:31)
[2021-09-11] MEDS: CALCIUM/VITAMIN D 500 MG TAB PO SCH ×2 (08:31→21:22)
[2021-09-11] MEDS: ENOXAPARIN 40MG/0.4ML SYRINGE (J1650 PER 10MG) SC SCH (09:24)
[2021-09-11 16:08] LABS: BODY FLUID CULTURE Not indicated. (.); LEGIONELLA ANTIGEN URINE Negative (Negative); ORGANISM ID Not indicated. (.); SPECIMEN SOURCE Urine (.); URINE STREP PNEUMONIAE ANTIGEN Negative (Negative)
[2021-09-11] MEDS: IMMUNE GLOBULIN 10% 20 GM in IV 1 EA IV SCH (16:41)
[2021-09-11] MEDS: IMMUNE GLOBULIN 10% 5 GM in IV 1 EA IV SCH (20:03)
[2021-09-11] MEDS: METOPROLOL SUCC (TopROL XL) 100MG *XL* TAB PO SCH (21:20)
[2021-09-11] MEDS: CO-ENZYME Q10 50 MG CAP PO SCH (21:20)
[2021-09-11] MEDS: CETIRIZINE (ZyrTEC) 10 MG TAB PO SCH (21:21)
[2021-09-11] MEDS: ATORVASTATIN 20 MG TAB PO SCH (21:22)
[2021-09-12] VITALS (40 sets, daily range): BP systolic 105–177; BP diastolic 67–127; O2SAT 81–97
[2021-09-12] MEDS: IPRATROPIUM 0.5MG/ALBUTEROL 2.5MG INH SOL UD 3ML (DUONEB) NEB SCH ×4 (01:57→20:00)
[2021-09-12] MEDS: methylPREDNISolone 125MG 2ML VIAL IV SCH ×2 (05:46→18:55)
[2021-09-12] MEDS: LEVOTHYROXINE 50MCG TABLET (0.05MG) PO SCH (05:46)
[2021-09-12 07:25] LABS: HEMATOCRIT 32.3 % (36.0-47.0); HEMOGLOBIN 10.3 g/dl (12.0-15.5); MEAN CORPUSCULAR HEMOGLOBIN 26.6 pg (27.0-33.0); MEAN CORPUSCULAR HGB CONC 31.9 g/dl (32.0-36.5); MEAN CORPUSCULAR VOLUME 83.5 fl (80.0-96.0); PLATELET COUNT, AUTOMATED 336 10^3/uL (150-450); RED BLOOD COUNT 3.87 10^6/uL (4.00-5.40); WHITE BLOOD COUNT 19.8 10^3/uL (4.0-10.0)
[2021-09-12 07:33] LABS: BASO % 0.2 % (0.0-1.0); HEMATOCRIT 32.8 % (36.0-47.0); HEMOGLOBIN 10.2 g/dl (12.0-15.5); LYMPH # 0.2 10^3/uL (1.5-5.0); LYMPH % 1.2 % (24.0-44.0); MEAN CORPUSCULAR HEMOGLOBIN 25.8 pg (27.0-33.0); MEAN CORPUSCULAR HGB CONC 31.1 g/dl (32.0-36.5); MONO # 0.6 10^3/uL (0.0-0.8); MONO % 3.1 % (2.0-8.0); NEUTROPHILS # 17.5 10^3/uL (1.5-8.5); NEUTROPHILS % 90.5 % (36.0-66.0); PLATELET COUNT, AUTOMATED 352 10^3/uL (150-450); RED BLOOD COUNT 3.95 10^6/uL (4.00-5.40); WHITE BLOOD COUNT 19.3 10^3/uL (4.0-10.0)
[2021-09-12 08:04] LABS: ALBUMIN 2.4 GM/DL (3.2-5.2); ALT/SGPT 52 U/L (12-78); BILIRUBIN,TOTAL 0.5 MG/DL (0.2-1.0); BLOOD UREA NITROGEN 21 MG/DL (7-18); CALCIUM LEVEL 8.5 MG/DL (8.8-10.2); CARBON DIOXIDE LEVEL 29 MEQ/L (21-32); CHLORIDE LEVEL 104 MEQ/L (98-107); CREATININE FOR GFR 0.65 MG/DL (0.55-1.30); GLOMERULAR FILTRATION RATE > 60.0 (>39); GLUCOSE, FASTING 98 MG/DL (70-100); MAGNESIUM LEVEL 2.4 MG/DL (1.8-2.4); POTASSIUM SERUM 4.6 MEQ/L (3.5-5.1); SODIUM LEVEL 139 MEQ/L (136-145); TOTAL PROTEIN 5.8 GM/DL (6.4-8.2)
[2021-09-12] MEDS: CALCIUM/VITAMIN D 500 MG TAB PO SCH ×2 (09:03→21:21)
[2021-09-12] MEDS: ENOXAPARIN 40MG/0.4ML SYRINGE (J1650 PER 10MG) SC SCH (09:03)
[2021-09-12] MEDS: ENALAPRIL MALEATE 10 MG TAB PO SCH (09:03)
[2021-09-12] MEDS: guaiFENesin ER 600 MG TAB PO SCH ×2 (09:04→21:21)
[2021-09-12] MEDS: PANTOPRAZOLE 40MG TAB (PROTONIX) PO SCH (09:04)
[2021-09-12] MEDS ORDERED: POLYVINYL ALCOHOL OPHTH SOLN 15 ML(LIQUITEARS) OU PRN (13:30)
[2021-09-12] MEDS: IMMUNE GLOBULIN 10% 20 GM in IV 1 EA IV SCH (15:17)
[2021-09-12] MEDS: IMMUNE GLOBULIN 10% 5 GM in IV 1 EA IV SCH (18:57)
[2021-09-12] MEDS: LEVALBUTEROL 1.25 MG/0.5 ML CONCENTRATE NEB INH PRN (20:12)
[2021-09-12] MEDS: METOPROLOL SUCC (TopROL XL) 100MG *XL* TAB PO SCH (21:00)
[2021-09-12] MEDS: CETIRIZINE (ZyrTEC) 10 MG TAB PO SCH (21:21)
[2021-09-12] MEDS: ATORVASTATIN 20 MG TAB PO SCH (21:21)
[2021-09-12] MEDS: CO-ENZYME Q10 50 MG CAP PO SCH (21:21)
[2021-09-13] VITALS (24 sets, daily range): BP systolic 104–162; BP diastolic 72–92; O2SAT 85–97
[2021-09-13] MEDS: IPRATROPIUM 0.5MG/ALBUTEROL 2.5MG INH SOL UD 3ML (DUONEB) NEB SCH ×4 (02:00→19:51)
[2021-09-13 06:17] LABS: BASO % 0.1 % (0.0-1.0); HEMATOCRIT 29.8 % (36.0-47.0); HEMOGLOBIN 9.4 g/dl (12.0-15.5); LYMPH # 0.1 10^3/uL (1.5-5.0); MEAN CORPUSCULAR HGB CONC 31.5 g/dl (32.0-36.5); MEAN CORPUSCULAR VOLUME 82.3 fl (80.0-96.0); MONO # 0.4 10^3/uL (0.0-0.8); NEUTROPHILS # 11.5 10^3/uL (1.5-8.5); NEUTROPHILS % 94.6 % (36.0-66.0); PLATELET COUNT, AUTOMATED 263 10^3/uL (150-450); RED BLOOD COUNT 3.62 10^6/uL (4.00-5.40); WHITE BLOOD COUNT 12.2 10^3/uL (4.0-10.0)
[2021-09-13] MEDS: LEVOTHYROXINE 75MCG TABLET (0.075MG) PO SCH (06:17)
[2021-09-13] MEDS: methylPREDNISolone 125MG 2ML VIAL IV SCH ×2 (06:17→18:53)
[2021-09-13 06:46] LABS: ALBUMIN 2.2 GM/DL (3.2-5.2); ALT/SGPT 43 U/L (12-78); BILIRUBIN,TOTAL 0.5 MG/DL (0.2-1.0); BLOOD UREA NITROGEN 19 MG/DL (7-18); CALCIUM LEVEL 8.4 MG/DL (8.8-10.2); CARBON DIOXIDE LEVEL 29 MEQ/L (21-32); CHLORIDE LEVEL 105 MEQ/L (98-107); CREATININE FOR GFR 0.64 MG/DL (0.55-1.30); GLOMERULAR FILTRATION RATE > 60.0 (>39); GLUCOSE, FASTING 118 MG/DL (70-100); MAGNESIUM LEVEL 2.4 MG/DL (1.8-2.4); POTASSIUM SERUM 4.5 MEQ/L (3.5-5.1); SODIUM LEVEL 139 MEQ/L (136-145); TOTAL PROTEIN 6.2 GM/DL (6.4-8.2)
[2021-09-13] MEDS: LEVALBUTEROL 1.25 MG/0.5 ML CONCENTRATE NEB INH PRN (08:58)
[2021-09-13] MEDS: ENOXAPARIN 40MG/0.4ML SYRINGE (J1650 PER 10MG) SC SCH (10:19)
[2021-09-13] MEDS: PANTOPRAZOLE 40MG TAB (PROTONIX) PO SCH (10:21)
[2021-09-13] MEDS: CALCIUM/VITAMIN D 500 MG TAB PO SCH (10:21)
[2021-09-13] MEDS: guaiFENesin ER 600 MG TAB PO SCH ×2 (10:21→21:00)
[2021-09-13] MEDS: ENALAPRIL MALEATE 10 MG TAB PO SCH (10:21)
[2021-09-13] MEDS: METOPROLOL SUCC (TopROL XL) 100MG *XL* TAB PO SCH (21:22)
[2021-09-13] MEDS: CETIRIZINE (ZyrTEC) 10 MG TAB PO SCH (22:03)
[2021-09-13] MEDS: CO-ENZYME Q10 50 MG CAP PO SCH (22:04)
[2021-09-13] MEDS: ATORVASTATIN 20 MG TAB PO SCH (22:04)
[2021-09-13] MEDS ORDERED: DIGOXIN INJ 0.5 MG/2 ML AMP (J1160) IV ONE (23:00)
[2021-09-14] VITALS (18 sets, daily range): BP systolic 131–178; BP diastolic 68–97; O2SAT 82–95
[2021-09-14] MEDS: IPRATROPIUM 0.5MG/ALBUTEROL 2.5MG INH SOL UD 3ML (DUONEB) NEB SCH ×5 (02:00→22:28)
[2021-09-14] MEDS: methylPREDNISolone 125MG 2ML VIAL IV SCH ×2 (06:12→18:19)
[2021-09-14] MEDS: LEVOTHYROXINE 50MCG TABLET (0.05MG) PO SCH (06:12)
[2021-09-14 06:15] LABS: BASO % 0.1 % (0.0-1.0); HEMATOCRIT 30.8 % (36.0-47.0); HEMOGLOBIN 9.8 g/dl (12.0-15.5); LYMPH # 0.1 10^3/uL (1.5-5.0); LYMPH % 0.5 % (24.0-44.0); MEAN CORPUSCULAR HEMOGLOBIN 26.8 pg (27.0-33.0); MEAN CORPUSCULAR HGB CONC 31.8 g/dl (32.0-36.5); MEAN CORPUSCULAR VOLUME 84.2 fl (80.0-96.0); MONO # 0.4 10^3/uL (0.0-0.8); MONO % 3.3 % (2.0-8.0); NEUTROPHILS # 12.5 10^3/uL (1.5-8.5); PLATELET COUNT, AUTOMATED 249 10^3/uL (150-450); RED BLOOD COUNT 3.66 10^6/uL (4.00-5.40); WHITE BLOOD COUNT 13.1 10^3/uL (4.0-10.0)
[2021-09-14 06:40] LABS: ALBUMIN 2.2 GM/DL (3.2-5.2); ALT/SGPT 50 U/L (12-78); BILIRUBIN,TOTAL 0.5 MG/DL (0.2-1.0); BLOOD UREA NITROGEN 22 MG/DL (7-18); CARBON DIOXIDE LEVEL 31 MEQ/L (21-32); CHLORIDE LEVEL 103 MEQ/L (98-107); CREATININE FOR GFR 0.69 MG/DL (0.55-1.30); GLOMERULAR FILTRATION RATE > 60.0 (>39); GLUCOSE, FASTING 101 MG/DL (70-100); MAGNESIUM LEVEL 2.3 MG/DL (1.8-2.4); POTASSIUM SERUM 4.3 MEQ/L (3.5-5.1); SODIUM LEVEL 138 MEQ/L (136-145); TOTAL PROTEIN 6.1 GM/DL (6.4-8.2)
[2021-09-14] MEDS: ENOXAPARIN 40MG/0.4ML SYRINGE (J1650 PER 10MG) SC SCH (08:41)
[2021-09-14] MEDS: PANTOPRAZOLE 40MG TAB (PROTONIX) PO SCH (08:42)
[2021-09-14] MEDS: ENALAPRIL MALEATE 10 MG TAB PO SCH (08:42)
[2021-09-14] MEDS: guaiFENesin ER 600 MG TAB PO SCH ×2 (08:44→21:52)
[2021-09-14] MEDS: LEVALBUTEROL 1.25 MG/0.5 ML CONCENTRATE NEB INH PRN (08:53)
[2021-09-14] MEDS: ESCITALOPRAM OXALATE 5MG TABLET (LEXAPRO) PO SCH (13:44)
[2021-09-14] MEDS ORDERED: FUROSEMIDE 40MG/4ML VIAL (J1940) IV ONE (13:45)
[2021-09-14] MEDS: CO-ENZYME Q10 50 MG CAP PO SCH (21:51)
[2021-09-14] MEDS: ATORVASTATIN 20 MG TAB PO SCH (21:52)
[2021-09-14] MEDS: METOPROLOL SUCC (TopROL XL) 100MG *XL* TAB PO SCH (21:52)
[2021-09-14] MEDS: CETIRIZINE (ZyrTEC) 10 MG TAB PO SCH (21:53)
[2021-09-14] MEDS: RAMELTEON 8 MG TAB (ROZEREM) PO PRN (21:53)
[2021-09-15] VITALS (22 sets, daily range): BP systolic 116–165; BP diastolic 59–98; O2SAT 88–98
[2021-09-15] MEDS: LEVOTHYROXINE 75MCG TABLET (0.075MG) PO SCH (05:51)
[2021-09-15] MEDS: methylPREDNISolone 125MG 2ML VIAL IV SCH ×2 (05:51→17:15)
[2021-09-15 06:10] LABS: BASO % 0.1 % (0.0-1.0); EOS % 0.1 % (0.0-3.0); HEMATOCRIT 30.3 % (36.0-47.0); HEMOGLOBIN 9.4 g/dl (12.0-15.5); LYMPH # 0.1 10^3/uL (1.5-5.0); LYMPH % 0.8 % (24.0-44.0); MEAN CORPUSCULAR HEMOGLOBIN 25.8 pg (27.0-33.0); MEAN CORPUSCULAR VOLUME 83.2 fl (80.0-96.0); MONO # 0.4 10^3/uL (0.0-0.8); MONO % 3.2 % (2.0-8.0); NEUTROPHILS # 10.3 10^3/uL (1.5-8.5); NEUTROPHILS % 94.4 % (36.0-66.0); PLATELET COUNT, AUTOMATED 205 10^3/uL (150-450); RED BLOOD COUNT 3.64 10^6/uL (4.00-5.40); WHITE BLOOD COUNT 10.9 10^3/uL (4.0-10.0)
[2021-09-15 06:31] LABS: ALBUMIN 2.2 GM/DL (3.2-5.2); ALT/SGPT 109 U/L (12-78); BILIRUBIN,TOTAL 0.5 MG/DL (0.2-1.0); BLOOD UREA NITROGEN 26 MG/DL (7-18); CALCIUM LEVEL 7.8 MG/DL (8.8-10.2); CARBON DIOXIDE LEVEL 30 MEQ/L (21-32); CHLORIDE LEVEL 103 MEQ/L (98-107); CREATININE FOR GFR 0.61 MG/DL (0.55-1.30); GLOMERULAR FILTRATION RATE > 60.0 (>39); GLUCOSE, FASTING 111 MG/DL (70-100); MAGNESIUM LEVEL 2.4 MG/DL (1.8-2.4); POTASSIUM SERUM 4.4 MEQ/L (3.5-5.1); SODIUM LEVEL 138 MEQ/L (136-145); TOTAL PROTEIN 5.5 GM/DL (6.4-8.2)
[2021-09-15] MEDS: IPRATROPIUM 0.5MG/ALBUTEROL 2.5MG INH SOL UD 3ML (DUONEB) NEB SCH ×3 (08:31→20:07)
[2021-09-15] MEDS: ENOXAPARIN 40MG/0.4ML SYRINGE (J1650 PER 10MG) SC SCH (10:05)
[2021-09-15] MEDS: ESCITALOPRAM OXALATE 5MG TABLET (LEXAPRO) PO SCH (10:06)
[2021-09-15] MEDS: PANTOPRAZOLE 40MG TAB (PROTONIX) PO SCH (10:06)
[2021-09-15] MEDS: guaiFENesin ER 600 MG TAB PO SCH ×2 (10:06→21:00)
[2021-09-15] MEDS: ENALAPRIL MALEATE 10 MG TAB PO SCH (10:07)
[2021-09-15] MEDS ORDERED: FLUTICASONE PROP 0.05% NASAL SPRAY 16 GM (FLONASE) PRN (17:55)
[2021-09-15] MEDS: FUROSEMIDE 40 MG TAB PO SCH (18:40)
[2021-09-15] MEDS: ALPRAZolam 0.25 MG TAB PO SCH (22:12)
[2021-09-15] MEDS: METOPROLOL SUCC (TopROL XL) 100MG *XL* TAB PO SCH (22:12)
[2021-09-15] MEDS: CO-ENZYME Q10 50 MG CAP PO SCH (22:12)
[2021-09-15] MEDS: ATORVASTATIN 20 MG TAB PO SCH (22:13)
[2021-09-15] MEDS: CETIRIZINE (ZyrTEC) 10 MG TAB PO SCH (22:13)
[2021-09-16] VITALS (23 sets, daily range): BP systolic 107–134; BP diastolic 59–90; O2SAT 86–98
[2021-09-16] MEDS: IPRATROPIUM 0.5MG/ALBUTEROL 2.5MG INH SOL UD 3ML (DUONEB) NEB SCH ×3 (01:49→19:35)
[2021-09-16 05:57] LABS: BASO % 0.1 % (0.0-1.0); HEMATOCRIT 31.8 % (36.0-47.0); LYMPH # 0.1 10^3/uL (1.5-5.0); LYMPH % 0.9 % (24.0-44.0); MEAN CORPUSCULAR HEMOGLOBIN 26.6 pg (27.0-33.0); MEAN CORPUSCULAR HGB CONC 31.4 g/dl (32.0-36.5); MEAN CORPUSCULAR VOLUME 84.6 fl (80.0-96.0); MONO # 0.3 10^3/uL (0.0-0.8); MONO % 3.3 % (2.0-8.0); NEUTROPHILS # 9.2 10^3/uL (1.5-8.5); NEUTROPHILS % 94.3 % (36.0-66.0); PLATELET COUNT, AUTOMATED 156 10^3/uL (150-450); RED BLOOD COUNT 3.76 10^6/uL (4.00-5.40); WHITE BLOOD COUNT 9.8 10^3/uL (4.0-10.0)
[2021-09-16] MEDS: methylPREDNISolone 125MG 2ML VIAL IV SCH ×2 (06:11→18:05)
[2021-09-16] MEDS: LEVOTHYROXINE 50MCG TABLET (0.05MG) PO SCH (06:11)
[2021-09-16 06:46] LABS: ALBUMIN 2.4 GM/DL (3.2-5.2); ALT/SGPT 94 U/L (12-78); BILIRUBIN,TOTAL 0.6 MG/DL (0.2-1.0); BLOOD UREA NITROGEN 24 MG/DL (7-18); CALCIUM LEVEL 7.7 MG/DL (8.8-10.2); CARBON DIOXIDE LEVEL 33 MEQ/L (21-32); CHLORIDE LEVEL 101 MEQ/L (98-107); CREATININE FOR GFR 0.75 MG/DL (0.55-1.30); GLOMERULAR FILTRATION RATE > 60.0 (>39); GLUCOSE, FASTING 116 MG/DL (70-100); MAGNESIUM LEVEL 2.3 MG/DL (1.8-2.4); POTASSIUM SERUM 4.5 MEQ/L (3.5-5.1); SODIUM LEVEL 139 MEQ/L (136-145); TOTAL PROTEIN 5.8 GM/DL (6.4-8.2)
[2021-09-16] MEDS: ESCITALOPRAM OXALATE 5MG TABLET (LEXAPRO) PO SCH (09:21)
[2021-09-16] MEDS: ENALAPRIL MALEATE 10 MG TAB PO SCH (09:21)
[2021-09-16] MEDS: FUROSEMIDE 40 MG TAB PO SCH (09:21)
[2021-09-16] MEDS: PANTOPRAZOLE 40MG TAB (PROTONIX) PO SCH (09:21)
[2021-09-16] MEDS: guaiFENesin ER 600 MG TAB PO SCH ×2 (09:22→21:13)
[2021-09-16] MEDS: ENOXAPARIN 40MG/0.4ML SYRINGE (J1650 PER 10MG) SC SCH (09:22)
[2021-09-16 13:19] LABS: ABG BASE EXCESS 2.4 (-2.0-2.0); ABG HCO3 26.2 MEQ/L (22.0-26.0); ABG O2 SATURATION 92.8 % (95.0-99.0); ABG PARTIAL PRESSURE CO2 37.6 mmHg (35.0-45.0); ABG PARTIAL PRESSURE O2 66.5 mmHg (75.0-100.0); ABG STANDARD HCO3 26.5 MEQ/L (22.0-26.0); ABG TOTAL CO2 27.4 MEQ/L (23.0-31.0); ABG pH (ARTERIAL) 7.461 UNITS (7.350-7.450)
[2021-09-16] MEDS: METOPROLOL SUCC (TopROL XL) 100MG *XL* TAB PO SCH (21:13)
[2021-09-16] MEDS: ATORVASTATIN 20 MG TAB PO SCH (21:13)
[2021-09-16] MEDS: ALPRAZolam 0.25 MG TAB PO SCH (21:13)
[2021-09-16] MEDS: CETIRIZINE (ZyrTEC) 10 MG TAB PO SCH (21:13)
[2021-09-16] MEDS: CO-ENZYME Q10 50 MG CAP PO SCH (21:13)
[2021-09-17] VITALS (33 sets, daily range): BP systolic 114–150; BP diastolic 59–89; O2SAT 83–99
[2021-09-17] MEDS: IPRATROPIUM 0.5MG/ALBUTEROL 2.5MG INH SOL UD 3ML (DUONEB) NEB SCH ×4 (02:10→18:39)
[2021-09-17] MEDS: methylPREDNISolone 125MG 2ML VIAL IV SCH ×2 (06:03→17:48)
[2021-09-17] MEDS: LEVOTHYROXINE 75MCG TABLET (0.075MG) PO SCH (06:03)
[2021-09-17 08:28] LABS: BASO % 0.1 % (0.0-1.0); HEMATOCRIT 32.2 % (36.0-47.0); HEMOGLOBIN 10.3 g/dl (12.0-15.5); LYMPH # 0.1 10^3/uL (1.5-5.0); MEAN CORPUSCULAR HEMOGLOBIN 26.6 pg (27.0-33.0); MEAN CORPUSCULAR VOLUME 83.2 fl (80.0-96.0); MONO # 0.3 10^3/uL (0.0-0.8); MONO % 2.9 % (2.0-8.0); NEUTROPHILS # 10.2 10^3/uL (1.5-8.5); NEUTROPHILS % 94.2 % (36.0-66.0); PLATELET COUNT, AUTOMATED 127 10^3/uL (150-450); RED BLOOD COUNT 3.87 10^6/uL (4.00-5.40); WHITE BLOOD COUNT 10.8 10^3/uL (4.0-10.0)
[2021-09-17 08:55] LABS: ALBUMIN 2.4 GM/DL (3.2-5.2); ALT/SGPT 89 U/L (12-78); BILIRUBIN,TOTAL 0.7 MG/DL (0.2-1.0); BLOOD UREA NITROGEN 23 MG/DL (7-18); CALCIUM LEVEL 7.5 MG/DL (8.8-10.2); CARBON DIOXIDE LEVEL 32 MEQ/L (21-32); CHLORIDE LEVEL 97 MEQ/L (98-107); CREATININE FOR GFR 0.62 MG/DL (0.55-1.30); GLOMERULAR FILTRATION RATE > 60.0 (>39); GLUCOSE, FASTING 103 MG/DL (70-100); MAGNESIUM LEVEL 2.4 MG/DL (1.8-2.4); POTASSIUM SERUM 4.1 MEQ/L (3.5-5.1); SODIUM LEVEL 135 MEQ/L (136-145); TOTAL PROTEIN 5.8 GM/DL (6.4-8.2)
[2021-09-17] MEDS: PANTOPRAZOLE 40MG TAB (PROTONIX) PO SCH (09:55)
[2021-09-17] MEDS: ENOXAPARIN 40MG/0.4ML SYRINGE (J1650 PER 10MG) SC SCH (09:55)
[2021-09-17] MEDS: ENALAPRIL MALEATE 10 MG TAB PO SCH (09:55)
[2021-09-17] MEDS: ESCITALOPRAM OXALATE 5MG TABLET (LEXAPRO) PO SCH (09:55)
[2021-09-17] MEDS: FUROSEMIDE 40 MG TAB PO SCH (09:55)
[2021-09-17] MEDS: guaiFENesin ER 600 MG TAB PO SCH ×2 (09:56→20:33)
[2021-09-17] MEDS: CO-ENZYME Q10 50 MG CAP PO SCH (20:33)
[2021-09-17] MEDS: ALPRAZolam 0.25 MG TAB PO SCH (20:33)
[2021-09-17] MEDS: CETIRIZINE (ZyrTEC) 10 MG TAB PO SCH (20:33)
[2021-09-17] MEDS: ATORVASTATIN 20 MG TAB PO SCH (20:33)
[2021-09-17] MEDS: METOPROLOL SUCC (TopROL XL) 100MG *XL* TAB PO SCH (20:34)
[2021-09-18] VITALS (21 sets, daily range): BP systolic 120–146; BP diastolic 56–82; O2SAT 84–100
[2021-09-18] MEDS: IPRATROPIUM 0.5MG/ALBUTEROL 2.5MG INH SOL UD 3ML (DUONEB) NEB SCH ×4 (01:26→18:25)
[2021-09-18] MEDS: LEVOTHYROXINE 50MCG TABLET (0.05MG) PO SCH (06:12)
[2021-09-18] MEDS: methylPREDNISolone 125MG 2ML VIAL IV SCH ×2 (06:12→18:09)
[2021-09-18 06:35] LABS: BASO % 0.1 % (0.0-1.0); HEMATOCRIT 28.2 % (36.0-47.0); LYMPH # 0.1 10^3/uL (1.5-5.0); LYMPH % 0.7 % (24.0-44.0); MEAN CORPUSCULAR HEMOGLOBIN 26.8 pg (27.0-33.0); MEAN CORPUSCULAR HGB CONC 31.9 g/dl (32.0-36.5); MEAN CORPUSCULAR VOLUME 83.9 fl (80.0-96.0); MONO # 0.3 10^3/uL (0.0-0.8); MONO % 3.6 % (2.0-8.0); NEUTROPHILS # 8.9 10^3/uL (1.5-8.5); NEUTROPHILS % 93.9 % (36.0-66.0); RED BLOOD COUNT 3.36 10^6/uL (4.00-5.40); WHITE BLOOD COUNT 9.5 10^3/uL (4.0-10.0)
[2021-09-18 06:57] LABS: BLOOD UREA NITROGEN 20 MG/DL (7-18); CALCIUM LEVEL 7.3 MG/DL (8.8-10.2); CARBON DIOXIDE LEVEL 33 MEQ/L (21-32); CHLORIDE LEVEL 97 MEQ/L (98-107); CREATININE FOR GFR 0.52 MG/DL (0.55-1.30); GLOMERULAR FILTRATION RATE > 60.0 (>39); GLUCOSE, FASTING 108 MG/DL (70-100); MAGNESIUM LEVEL 2.4 MG/DL (1.8-2.4); POTASSIUM SERUM 3.9 MEQ/L (3.5-5.1); SODIUM LEVEL 135 MEQ/L (136-145)
[2021-09-18 07:28] LABS: PLATELET COUNT, AUTOMATED 78 10^3/uL (150-450)
[2021-09-18] MEDS: FUROSEMIDE 40 MG TAB PO SCH (09:37)
[2021-09-18] MEDS: guaiFENesin ER 600 MG TAB PO SCH ×2 (09:37→21:30)
[2021-09-18] MEDS: PANTOPRAZOLE 40MG TAB (PROTONIX) PO SCH (09:38)
[2021-09-18] MEDS: ENALAPRIL MALEATE 10 MG TAB PO SCH (09:38)
[2021-09-18] MEDS: ESCITALOPRAM OXALATE 5MG TABLET (LEXAPRO) PO SCH (09:38)
[2021-09-18] MEDS: ENOXAPARIN 40MG/0.4ML SYRINGE (J1650 PER 10MG) SC SCH (09:42)
[2021-09-18] MEDS: ALPRAZolam 0.25 MG TAB PO SCH (21:29)
[2021-09-18] MEDS: CO-ENZYME Q10 50 MG CAP PO SCH (21:29)
[2021-09-18] MEDS: CETIRIZINE (ZyrTEC) 10 MG TAB PO SCH (21:33)
[2021-09-18] MEDS: ATORVASTATIN 20 MG TAB PO SCH (21:33)
[2021-09-18] MEDS: METOPROLOL SUCC (TopROL XL) 100MG *XL* TAB PO SCH (21:33)
[2021-09-19] VITALS (28 sets, daily range): BP systolic 124–150; BP diastolic 63–80; O2SAT 82–99
[2021-09-19] MEDS: IPRATROPIUM 0.5MG/ALBUTEROL 2.5MG INH SOL UD 3ML (DUONEB) NEB SCH ×4 (01:45→19:32)
[2021-09-19 05:36] LABS: HEMATOCRIT 27.3 % (36.0-47.0); HEMOGLOBIN 8.6 g/dl (12.0-15.5); LYMPH # 0.1 10^3/uL (1.5-5.0); LYMPH % 0.6 % (24.0-44.0); MEAN CORPUSCULAR HEMOGLOBIN 26.6 pg (27.0-33.0); MEAN CORPUSCULAR HGB CONC 31.5 g/dl (32.0-36.5); MEAN CORPUSCULAR VOLUME 84.5 fl (80.0-96.0); MONO # 0.5 10^3/uL (0.0-0.8); MONO % 4.3 % (2.0-8.0); NEUTROPHILS # 10.6 10^3/uL (1.5-8.5); NEUTROPHILS % 93.7 % (36.0-66.0); RED BLOOD COUNT 3.23 10^6/uL (4.00-5.40); WHITE BLOOD COUNT 11.3 10^3/uL (4.0-10.0)
[2021-09-19 05:42] LABS: PLATELET COUNT, AUTOMATED 56 10^3/uL (150-450)
[2021-09-19] MEDS: methylPREDNISolone 125MG 2ML VIAL IV SCH ×2 (05:54→18:44)
[2021-09-19] MEDS: LEVOTHYROXINE 75MCG TABLET (0.075MG) PO SCH (05:54)
[2021-09-19 06:05] LABS: BLOOD UREA NITROGEN 21 MG/DL (7-18); CALCIUM LEVEL 7.4 MG/DL (8.8-10.2); CARBON DIOXIDE LEVEL 33 MEQ/L (21-32); CHLORIDE LEVEL 97 MEQ/L (98-107); CREATININE FOR GFR 0.52 MG/DL (0.55-1.30); GLOMERULAR FILTRATION RATE > 60.0 (>39); GLUCOSE, FASTING 105 MG/DL (70-100); MAGNESIUM LEVEL 2.3 MG/DL (1.8-2.4); POTASSIUM SERUM 4.1 MEQ/L (3.5-5.1); SODIUM LEVEL 134 MEQ/L (136-145)
[2021-09-19] MEDS: ESCITALOPRAM OXALATE 5MG TABLET (LEXAPRO) PO SCH (09:49)
[2021-09-19] MEDS: PANTOPRAZOLE 40MG TAB (PROTONIX) PO SCH (09:49)
[2021-09-19] MEDS: FUROSEMIDE 40 MG TAB PO SCH (09:49)
[2021-09-19] MEDS: guaiFENesin ER 600 MG TAB PO SCH ×2 (09:49→20:48)
[2021-09-19] MEDS: ENALAPRIL MALEATE 10 MG TAB PO SCH (09:50)
[2021-09-19] MEDS: CETIRIZINE (ZyrTEC) 10 MG TAB PO SCH (20:48)
[2021-09-19] MEDS: METOPROLOL SUCC (TopROL XL) 100MG *XL* TAB PO SCH (20:49)
[2021-09-19] MEDS: ATORVASTATIN 20 MG TAB PO SCH (20:49)
[2021-09-19] MEDS: ALPRAZolam 0.25 MG TAB PO SCH (20:49)
[2021-09-19] MEDS: CO-ENZYME Q10 50 MG CAP PO SCH (20:49)
[2021-09-20] VITALS (28 sets, daily range): BP systolic 114–140; BP diastolic 59–90; O2SAT 79–99
[2021-09-20] MEDS: IPRATROPIUM 0.5MG/ALBUTEROL 2.5MG INH SOL UD 3ML (DUONEB) NEB SCH ×4 (02:00→19:14)
[2021-09-20] MEDS: LEVOTHYROXINE 50MCG TABLET (0.05MG) PO SCH (06:15)
[2021-09-20] MEDS: methylPREDNISolone 125MG 2ML VIAL IV SCH ×2 (06:15→18:31)
[2021-09-20] MEDS: guaiFENesin ER 600 MG TAB PO SCH ×2 (08:34→20:46)
[2021-09-20] MEDS: PANTOPRAZOLE 40MG TAB (PROTONIX) PO SCH (08:34)
[2021-09-20] MEDS: ENALAPRIL MALEATE 10 MG TAB PO SCH (08:34)
[2021-09-20] MEDS: FUROSEMIDE 40 MG TAB PO SCH (08:34)
[2021-09-20] MEDS: ESCITALOPRAM OXALATE 5MG TABLET (LEXAPRO) PO SCH (08:34)
[2021-09-20 08:58] LABS: BASO % 0.1 % (0.0-1.0); HEMATOCRIT 29.3 % (36.0-47.0); HEMOGLOBIN 9.2 g/dl (12.0-15.5); LYMPH # 0.1 10^3/uL (1.5-5.0); LYMPH % 0.6 % (24.0-44.0); MEAN CORPUSCULAR HEMOGLOBIN 27.3 pg (27.0-33.0); MEAN CORPUSCULAR HGB CONC 31.4 g/dl (32.0-36.5); MEAN CORPUSCULAR VOLUME 86.9 fl (80.0-96.0); MONO # 0.3 10^3/uL (0.0-0.8); MONO % 2.4 % (2.0-8.0); NEUTROPHILS # 11.7 10^3/uL (1.5-8.5); NEUTROPHILS % 95.1 % (36.0-66.0); RED BLOOD COUNT 3.37 10^6/uL (4.00-5.40); WHITE BLOOD COUNT 12.3 10^3/uL (4.0-10.0)
[2021-09-20 08:59] LABS: PLATELET COUNT, AUTOMATED 50 10^3/uL (150-450)
[2021-09-20 09:23] LABS: BLOOD UREA NITROGEN 22 MG/DL (7-18); CALCIUM LEVEL 7.3 MG/DL (8.8-10.2); CARBON DIOXIDE LEVEL 35 MEQ/L (21-32); CHLORIDE LEVEL 93 MEQ/L (98-107); CREATININE FOR GFR 0.64 MG/DL (0.55-1.30); GLOMERULAR FILTRATION RATE > 60.0 (>39); GLUCOSE, FASTING 142 MG/DL (70-100); MAGNESIUM LEVEL 2.3 MG/DL (1.8-2.4); SODIUM LEVEL 133 MEQ/L (136-145)
[2021-09-20 11:11] LABS: HEMATOCRIT 28.5 % (36.0-47.0); HEMOGLOBIN 8.8 g/dl (12.0-15.5)
[2021-09-20 14:49] LABS: PLTBLUE- EDTA FREE CALC 48 K/mm3 (172-450)
[2021-09-20 14:50] LABS: BASO % 0.1 % (0.0-1.0); HEMATOCRIT 28.5 % (36.0-47.0); HEMOGLOBIN 8.8 g/dl (12.0-15.5); LYMPH # 0.1 10^3/uL (1.5-5.0); LYMPH % 0.6 % (24.0-44.0); MEAN CORPUSCULAR HEMOGLOBIN 26.3 pg (27.0-33.0); MEAN CORPUSCULAR HGB CONC 30.9 g/dl (32.0-36.5); MEAN CORPUSCULAR VOLUME 85.1 fl (80.0-96.0); MONO # 0.5 10^3/uL (0.0-0.8); NEUTROPHILS # 14.6 10^3/uL (1.5-8.5); NEUTROPHILS % 94.3 % (36.0-66.0); RED BLOOD COUNT 3.35 10^6/uL (4.00-5.40); WHITE BLOOD COUNT 15.4 10^3/uL (4.0-10.0)
[2021-09-20 14:51] LABS: PLATELET COUNT, AUTOMATED 53 10^3/uL (150-450)
[2021-09-20 15:01] LABS: INR 1.06; PROTHROMBIN TIME 14.2 SECONDS (12.7-14.5)
[2021-09-20 15:35] LABS: PLTBLUE- EDTA FREE MACHINE 44 10^3/uL (172-450)
[2021-09-20] MEDS: METOPROLOL SUCC (TopROL XL) 100MG *XL* TAB PO SCH (20:46)
[2021-09-20] MEDS: CETIRIZINE (ZyrTEC) 10 MG TAB PO SCH (20:46)
[2021-09-20] MEDS: ATORVASTATIN 20 MG TAB PO SCH (20:46)
[2021-09-20] MEDS: ALPRAZolam 0.25 MG TAB PO SCH (20:46)
[2021-09-20] MEDS: CO-ENZYME Q10 50 MG CAP PO SCH (20:46)
[2021-09-21] VITALS (29 sets, daily range): BP systolic 113–153; BP diastolic 53–103; O2SAT 85–98
[2021-09-21] MEDS: IPRATROPIUM 0.5MG/ALBUTEROL 2.5MG INH SOL UD 3ML (DUONEB) NEB SCH ×4 (02:00→20:30)
[2021-09-21] MEDS: methylPREDNISolone 125MG 2ML VIAL IV SCH ×2 (06:22→18:06)
[2021-09-21] MEDS: LEVOTHYROXINE 75MCG TABLET (0.075MG) PO SCH (06:22)
[2021-09-21 08:02] LABS: BASO % 0.1 % (0.0-1.0); HEMATOCRIT 24.2 % (36.0-47.0); HEMOGLOBIN 7.5 g/dl (12.0-15.5); LYMPH # 0.1 10^3/uL (1.5-5.0); LYMPH % 0.7 % (24.0-44.0); MEAN CORPUSCULAR HEMOGLOBIN 26.4 pg (27.0-33.0); MEAN CORPUSCULAR VOLUME 85.2 fl (80.0-96.0); MONO # 0.4 10^3/uL (0.0-0.8); MONO % 3.5 % (2.0-8.0); NEUTROPHILS % 93.6 % (36.0-66.0); RED BLOOD COUNT 2.84 10^6/uL (4.00-5.40); WHITE BLOOD COUNT 11.7 10^3/uL (4.0-10.0)
[2021-09-21 08:04] LABS: PLATELET COUNT, AUTOMATED 44 10^3/uL (150-450)
[2021-09-21 08:22] LABS: BLOOD UREA NITROGEN 19 MG/DL (7-18); CALCIUM LEVEL 7.6 MG/DL (8.8-10.2); CARBON DIOXIDE LEVEL 36 MEQ/L (21-32); CHLORIDE LEVEL 95 MEQ/L (98-107); CREATININE FOR GFR 0.54 MG/DL (0.55-1.30); GLOMERULAR FILTRATION RATE > 60.0 (>39); GLUCOSE, FASTING 118 MG/DL (70-100); MAGNESIUM LEVEL 2.3 MG/DL (1.8-2.4); POTASSIUM SERUM 4.4 MEQ/L (3.5-5.1); SODIUM LEVEL 132 MEQ/L (136-145)
[2021-09-21] MEDS: ESCITALOPRAM OXALATE 5MG TABLET (LEXAPRO) PO SCH (09:10)
[2021-09-21] MEDS: guaiFENesin ER 600 MG TAB PO SCH ×2 (09:10→20:47)
[2021-09-21] MEDS: PANTOPRAZOLE 40MG TAB (PROTONIX) PO SCH (09:10)
[2021-09-21] MEDS: ENALAPRIL MALEATE 10 MG TAB PO SCH (09:11)
[2021-09-21] MEDS: FUROSEMIDE 40 MG TAB PO SCH (09:11)
[2021-09-21] MEDS: LEVALBUTEROL 1.25 MG/0.5 ML CONCENTRATE NEB INH PRN (09:25)
[2021-09-21 18:03] LABS: BASO % 0.2 % (0.0-1.0); HEMATOCRIT 37.1 % (36.0-47.0); LYMPH % 0.3 % (24.0-44.0); MEAN CORPUSCULAR HEMOGLOBIN 27.8 pg (27.0-33.0); MEAN CORPUSCULAR HGB CONC 33.2 g/dl (32.0-36.5); MEAN CORPUSCULAR VOLUME 83.7 fl (80.0-96.0); MONO # 0.5 10^3/uL (0.0-0.8); MONO % 3.4 % (2.0-8.0); NEUTROPHILS # 13.4 10^3/uL (1.5-8.5); NEUTROPHILS % 93.9 % (36.0-66.0); RED BLOOD COUNT 4.43 10^6/uL (4.00-5.40); WHITE BLOOD COUNT 14.2 10^3/uL (4.0-10.0)
[2021-09-21 18:09] LABS: HEMOGLOBIN 12.3 g/dl (12.0-15.5); PLATELET COUNT, AUTOMATED 40 10^3/uL (150-450)
[2021-09-21 18:13] LABS: INR 0.99; PROTHROMBIN TIME 13.5 SECONDS (12.7-14.5)
[2021-09-21] MEDS: CO-ENZYME Q10 50 MG CAP PO SCH (20:45)
[2021-09-21] MEDS: METOPROLOL SUCC (TopROL XL) 100MG *XL* TAB PO SCH (20:46)
[2021-09-21] MEDS: CETIRIZINE (ZyrTEC) 10 MG TAB PO SCH (20:46)
[2021-09-21] MEDS: ALPRAZolam 0.25 MG TAB PO SCH (20:46)
[2021-09-21] MEDS: ATORVASTATIN 20 MG TAB PO SCH (20:47)
[2021-09-22] VITALS (31 sets, daily range): BP systolic 103–148; BP diastolic 58–78; O2SAT 89–98
[2021-09-22] MEDS: IPRATROPIUM 0.5MG/ALBUTEROL 2.5MG INH SOL UD 3ML (DUONEB) NEB SCH ×4 (02:13→20:00)
[2021-09-22 05:07] LABS: BASO % 0.1 % (0.0-1.0); HEMATOCRIT 30.6 % (36.0-47.0); LYMPH # 0.1 10^3/uL (1.5-5.0); LYMPH % 0.7 % (24.0-44.0); MEAN CORPUSCULAR HEMOGLOBIN 27.4 pg (27.0-33.0); MEAN CORPUSCULAR HGB CONC 32.4 g/dl (32.0-36.5); MEAN CORPUSCULAR VOLUME 84.8 fl (80.0-96.0); MONO # 0.5 10^3/uL (0.0-0.8); MONO % 3.6 % (2.0-8.0); NEUTROPHILS # 12.6 10^3/uL (1.5-8.5); NEUTROPHILS % 93.8 % (36.0-66.0); RED BLOOD COUNT 3.61 10^6/uL (4.00-5.40); WHITE BLOOD COUNT 13.5 10^3/uL (4.0-10.0)
[2021-09-22 05:13] LABS: HEMOGLOBIN 9.9 g/dl (12.0-15.5); PLATELET COUNT, AUTOMATED 44 10^3/uL (150-450)
[2021-09-22 05:18] LABS: PARTIAL THROMBOPLASTIN TIME 34.8 SECONDS (25.9-37.0)
[2021-09-22 05:44] LABS: ALBUMIN 2.2 GM/DL (3.2-5.2); ALT/SGPT 103 U/L (12-78); BLOOD UREA NITROGEN 19 MG/DL (7-18); CALCIUM LEVEL 7.4 MG/DL (8.8-10.2); CARBON DIOXIDE LEVEL 34 MEQ/L (21-32); CHLORIDE LEVEL 96 MEQ/L (98-107); CREATININE FOR GFR 0.64 MG/DL (0.55-1.30); GLOMERULAR FILTRATION RATE > 60.0 (>39); GLUCOSE, FASTING 143 MG/DL (70-100); MAGNESIUM LEVEL 2.4 MG/DL (1.8-2.4); POTASSIUM SERUM 4.1 MEQ/L (3.5-5.1); SODIUM LEVEL 134 MEQ/L (136-145); TOTAL PROTEIN 4.9 GM/DL (6.4-8.2)
[2021-09-22] MEDS: methylPREDNISolone 125MG 2ML VIAL IV SCH (05:53)
[2021-09-22] MEDS: LEVOTHYROXINE 50MCG TABLET (0.05MG) PO SCH (05:53)
[2021-09-22] MEDS: guaiFENesin ER 600 MG TAB PO SCH ×2 (09:30→20:43)
[2021-09-22] MEDS: ESCITALOPRAM OXALATE 5MG TABLET (LEXAPRO) PO SCH (09:30)
[2021-09-22] MEDS: PANTOPRAZOLE 40MG TAB (PROTONIX) PO SCH (09:31)
[2021-09-22] MEDS: ENALAPRIL MALEATE 10 MG TAB PO SCH (09:31)
[2021-09-22] MEDS: FUROSEMIDE 40 MG TAB PO SCH (09:31)
[2021-09-22 18:14] LABS: HEMATOCRIT 30.5 % (36.0-47.0); HEMOGLOBIN 9.8 g/dl (12.0-15.5); MEAN CORPUSCULAR HEMOGLOBIN 27.4 pg (27.0-33.0); MEAN CORPUSCULAR HGB CONC 32.1 g/dl (32.0-36.5); MEAN CORPUSCULAR VOLUME 85.2 fl (80.0-96.0); RED BLOOD COUNT 3.58 10^6/uL (4.00-5.40); WHITE BLOOD COUNT 17.2 10^3/uL (4.0-10.0)
[2021-09-22 18:52] LABS: PLATELET COUNT, AUTOMATED 88 10^3/uL (150-450)
[2021-09-22] MEDS: CO-ENZYME Q10 50 MG CAP PO SCH (20:42)
[2021-09-22] MEDS: ALPRAZolam 0.25 MG TAB PO SCH (20:42)
[2021-09-22] MEDS: METOPROLOL SUCC (TopROL XL) 100MG *XL* TAB PO SCH (20:42)
[2021-09-22] MEDS: CETIRIZINE (ZyrTEC) 10 MG TAB PO SCH (20:43)
[2021-09-22] MEDS: ATORVASTATIN 20 MG TAB PO SCH (20:43)
[2021-09-22] MEDS: LEVALBUTEROL 1.25 MG/0.5 ML CONCENTRATE NEB INH PRN (20:55)
[2021-09-23] VITALS (16 sets, daily range): BP systolic 111–163; BP diastolic 57–93; O2SAT 83–100
[2021-09-23] MEDS: IPRATROPIUM 0.5MG/ALBUTEROL 2.5MG INH SOL UD 3ML (DUONEB) NEB SCH ×5 (02:00→21:36)
[2021-09-23] MEDS: LEVALBUTEROL 1.25 MG/0.5 ML CONCENTRATE NEB INH PRN ×4 (02:49→21:36)
[2021-09-23] MEDS ORDERED: ALBUTEROL SULFATE 2.5 MG/0.5 ML INH NEB SOLN NEB STA (05:05)
[2021-09-23] MEDS ORDERED: SODIUM CHLORIDE 0.9% 1000ML IV ONE (05:05)
[2021-09-23] MEDS: LEVOTHYROXINE 75MCG TABLET (0.075MG) PO SCH (05:34)
[2021-09-23 06:12] LABS: BASO % 0.1 % (0.0-1.0); EOS # 0.2 10^3/uL (0.0-0.5); EOS % 1.4 % (0.0-3.0); HEMATOCRIT 30.6 % (36.0-47.0); HEMOGLOBIN 9.9 g/dl (12.0-15.5); LYMPH # 0.2 10^3/uL (1.5-5.0); LYMPH % 1.4 % (24.0-44.0); MEAN CORPUSCULAR HEMOGLOBIN 27.3 pg (27.0-33.0); MEAN CORPUSCULAR HGB CONC 32.4 g/dl (32.0-36.5); MEAN CORPUSCULAR VOLUME 84.3 fl (80.0-96.0); MONO # 0.4 10^3/uL (0.0-0.8); MONO % 2.7 % (2.0-8.0); NEUTROPHILS # 13.6 10^3/uL (1.5-8.5); NEUTROPHILS % 93.4 % (36.0-66.0); RED BLOOD COUNT 3.63 10^6/uL (4.00-5.40); WHITE BLOOD COUNT 14.6 10^3/uL (4.0-10.0)
[2021-09-23 06:33] LABS: INR 1.01; PROTHROMBIN TIME 13.7 SECONDS (12.7-14.5)
[2021-09-23 06:34] LABS: PARTIAL THROMBOPLASTIN TIME 35.5 SECONDS (25.9-37.0)
[2021-09-23 06:38] LABS: PLATELET COUNT, AUTOMATED 55 10^3/uL (150-450)
[2021-09-23 06:43] LABS: BLOOD UREA NITROGEN 18 MG/DL (7-18); CALCIUM LEVEL 7.6 MG/DL (8.8-10.2); CARBON DIOXIDE LEVEL 31 MEQ/L (21-32); CHLORIDE LEVEL 98 MEQ/L (98-107); CREATININE FOR GFR 0.55 MG/DL (0.55-1.30); GLOMERULAR FILTRATION RATE > 60.0 (>39); GLUCOSE, FASTING 68 MG/DL (70-100); MAGNESIUM LEVEL 2.1 MG/DL (1.8-2.4); SODIUM LEVEL 137 MEQ/L (136-145)
[2021-09-23] MEDS: FUROSEMIDE 40 MG TAB PO SCH (08:54)
[2021-09-23] MEDS: ESCITALOPRAM OXALATE 5MG TABLET (LEXAPRO) PO SCH (08:54)
[2021-09-23] MEDS: predniSONE 50 MG TAB PO SCH (08:54)
[2021-09-23] MEDS: guaiFENesin ER 600 MG TAB PO SCH ×2 (08:54→20:05)
[2021-09-23] MEDS: FAMOTIDINE 20 MG TAB PO SCH ×2 (08:55→20:08)
[2021-09-23] MEDS: ENALAPRIL MALEATE 10 MG TAB PO SCH (08:55)
[2021-09-23 13:37] LABS: ABG BASE EXCESS 3.3 (-2.0-2.0); ABG HCO3 26.8 MEQ/L (22.0-26.0); ABG O2 SATURATION 95.6 % (95.0-99.0); ABG PARTIAL PRESSURE CO2 36.8 mmHg (35.0-45.0); ABG PARTIAL PRESSURE O2 77.6 mmHg (75.0-100.0); ABG STANDARD HCO3 27.4 MEQ/L (22.0-26.0); ABG TOTAL CO2 27.9 MEQ/L (23.0-31.0)
[2021-09-23 13:44] LABS: BASO % 0.1 % (0.0-1.0); EOS # 0.1 10^3/uL (0.0-0.5); EOS % 0.3 % (0.0-3.0); HEMATOCRIT 33.4 % (36.0-47.0); HEMOGLOBIN 10.7 g/dl (12.0-15.5); LYMPH # 0.1 10^3/uL (1.5-5.0); LYMPH % 0.6 % (24.0-44.0); MEAN CORPUSCULAR HEMOGLOBIN 27.4 pg (27.0-33.0); MEAN CORPUSCULAR VOLUME 85.6 fl (80.0-96.0); MONO # 0.4 10^3/uL (0.0-0.8); MONO % 2.3 % (2.0-8.0); NEUTROPHILS # 14.9 10^3/uL (1.5-8.5); NEUTROPHILS % 95.6 % (36.0-66.0); WHITE BLOOD COUNT 15.5 10^3/uL (4.0-10.0)
[2021-09-23 13:46] LABS: PLATELET COUNT, AUTOMATED 49 10^3/uL (150-450)
[2021-09-23] MEDS ORDERED: ISOVUE-370 76% 100ML VIAL As Ordered ONE (14:26)
[2021-09-23] MEDS: CO-ENZYME Q10 50 MG CAP PO SCH (20:05)
[2021-09-23] MEDS: ALPRAZolam 0.25 MG TAB PO SCH (20:07)
[2021-09-23] MEDS: METOPROLOL SUCC (TopROL XL) 100MG *XL* TAB PO SCH (20:07)
[2021-09-23] MEDS: ATORVASTATIN 20 MG TAB PO SCH (20:08)
[2021-09-23] MEDS: CETIRIZINE (ZyrTEC) 10 MG TAB PO SCH (20:08)
[2021-09-23] MEDS: RAMELTEON 8 MG TAB (ROZEREM) PO PRN (20:08)
[2021-09-24] VITALS (21 sets, daily range): BP systolic 111–152; BP diastolic 57–80; O2SAT 86–97
[2021-09-24] MEDS: IPRATROPIUM 0.5MG/ALBUTEROL 2.5MG INH SOL UD 3ML (DUONEB) NEB SCH ×3 (01:41→20:16)
[2021-09-24 06:10] LABS: BASO % 0.1 % (0.0-1.0); EOS % 0.1 % (0.0-3.0); HEMOGLOBIN 8.7 g/dl (12.0-15.5); LYMPH # 0.1 10^3/uL (1.5-5.0); LYMPH % 0.9 % (24.0-44.0); MEAN CORPUSCULAR HEMOGLOBIN 27.7 pg (27.0-33.0); MEAN CORPUSCULAR HGB CONC 32.2 g/dl (32.0-36.5); MONO # 0.3 10^3/uL (0.0-0.8); MONO % 3.2 % (2.0-8.0); NEUTROPHILS # 9.3 10^3/uL (1.5-8.5); NEUTROPHILS % 94.9 % (36.0-66.0); RED BLOOD COUNT 3.14 10^6/uL (4.00-5.40); WHITE BLOOD COUNT 9.8 10^3/uL (4.0-10.0)
[2021-09-24 06:13] LABS: PLATELET COUNT, AUTOMATED 48 10^3/uL (150-450)
[2021-09-24 06:25] LABS: BLOOD UREA NITROGEN 18 MG/DL (7-18); CALCIUM LEVEL 7.7 MG/DL (8.8-10.2); CARBON DIOXIDE LEVEL 35 MEQ/L (21-32); CHLORIDE LEVEL 95 MEQ/L (98-107); CREATININE FOR GFR 0.54 MG/DL (0.55-1.30); GLOMERULAR FILTRATION RATE > 60.0 (>39); GLUCOSE, FASTING 133 MG/DL (70-100); MAGNESIUM LEVEL 2.1 MG/DL (1.8-2.4); POTASSIUM SERUM 3.7 MEQ/L (3.5-5.1); SODIUM LEVEL 133 MEQ/L (136-145)
[2021-09-24] MEDS: LEVOTHYROXINE 50MCG TABLET (0.05MG) PO SCH (06:25)
[2021-09-24] MEDS: IPRATROPIUM 0.5MG/ALBUTEROL 2.5MG INH SOL UD 3ML (DUONEB) NEB PRN (07:27)
[2021-09-24] MEDS: ESCITALOPRAM OXALATE 5MG TABLET (LEXAPRO) PO SCH (09:47)
[2021-09-24] MEDS: FAMOTIDINE 20 MG TAB PO SCH ×2 (09:47→20:57)
[2021-09-24] MEDS: guaiFENesin ER 600 MG TAB PO SCH ×2 (09:48→21:00)
[2021-09-24] MEDS: FUROSEMIDE 40 MG TAB PO SCH (09:48)
[2021-09-24] MEDS: predniSONE 50 MG TAB PO SCH (09:48)
[2021-09-24] MEDS: ENALAPRIL MALEATE 10 MG TAB PO SCH (09:51)
[2021-09-24 13:03] LABS: HEMATOCRIT 28.2 % (36.0-47.0); HEMOGLOBIN 8.9 g/dl (12.0-15.5); MEAN CORPUSCULAR HEMOGLOBIN 27.6 pg (27.0-33.0); MEAN CORPUSCULAR HGB CONC 31.6 g/dl (32.0-36.5); MEAN CORPUSCULAR VOLUME 87.3 fl (80.0-96.0); RED BLOOD COUNT 3.23 10^6/uL (4.00-5.40); WHITE BLOOD COUNT 16.6 10^3/uL (4.0-10.0)
[2021-09-24 13:04] LABS: PLATELET COUNT, AUTOMATED 61 10^3/uL (150-450)
[2021-09-24] MEDS: ALPRAZolam 0.25 MG TAB PO SCH (20:57)
[2021-09-24] MEDS: METOPROLOL SUCC (TopROL XL) 100MG *XL* TAB PO SCH (20:57)
[2021-09-24] MEDS: CETIRIZINE (ZyrTEC) 10 MG TAB PO SCH (21:00)
[2021-09-24] MEDS: CO-ENZYME Q10 50 MG CAP PO SCH (21:00)
[2021-09-24] MEDS: ATORVASTATIN 20 MG TAB PO SCH (21:00)
[2021-09-24] MEDS ORDERED: ONDANSETRON 4MG 2ML VIAL IV STA (21:31)
[2021-09-24 21:50] LABS: HEMATOCRIT 29.6 % (36.0-47.0); HEMOGLOBIN 9.5 g/dl (12.0-15.5)
[2021-09-24] MEDS: PANTOPRAZOLE 40MG VIAL IV SCH (23:10)
[2021-09-24] MEDS ORDERED: METOCLOPRAMIDE INJ 10MG/2ML VIAL (J2765 PER 1) IV STA (23:15)
[2021-09-25] VITALS (39 sets, daily range): BP systolic 89–137; BP diastolic 42–88; O2SAT 84–94
[2021-09-25] MEDS: IPRATROPIUM 0.5MG/ALBUTEROL 2.5MG INH SOL UD 3ML (DUONEB) NEB SCH ×4 (02:00→19:24)
[2021-09-25] MEDS: LEVALBUTEROL 1.25 MG/0.5 ML CONCENTRATE NEB INH PRN ×5 (05:06→19:23)
[2021-09-25 05:35] LABS: HEMATOCRIT 28.8 % (36.0-47.0); HEMOGLOBIN 9.1 g/dl (12.0-15.5); MEAN CORPUSCULAR HEMOGLOBIN 27.7 pg (27.0-33.0); MEAN CORPUSCULAR HGB CONC 31.6 g/dl (32.0-36.5); MEAN CORPUSCULAR VOLUME 87.8 fl (80.0-96.0); RED BLOOD COUNT 3.28 10^6/uL (4.00-5.40); WHITE BLOOD COUNT 11.8 10^3/uL (4.0-10.0)
[2021-09-25 05:57] LABS: PLATELET COUNT, AUTOMATED 38 10^3/uL (150-450)
[2021-09-25] MEDS: LEVOTHYROXINE 75MCG TABLET (0.075MG) PO SCH ×2 (06:00→06:07)
[2021-09-25 06:10] LABS: ALBUMIN 2.5 GM/DL (3.2-5.2); ALT/SGPT 72 U/L (12-78); BILIRUBIN,TOTAL 1.4 MG/DL (0.2-1.0); BLOOD UREA NITROGEN 19 MG/DL (7-18); CALCIUM LEVEL 7.8 MG/DL (8.8-10.2); CARBON DIOXIDE LEVEL 37 MEQ/L (21-32); CHLORIDE LEVEL 94 MEQ/L (98-107); CREATININE FOR GFR 0.66 MG/DL (0.55-1.30); GLOMERULAR FILTRATION RATE > 60.0 (>39); GLUCOSE, FASTING 89 MG/DL (70-100); MAGNESIUM LEVEL 2.2 MG/DL (1.8-2.4); SODIUM LEVEL 135 MEQ/L (136-145); TOTAL PROTEIN 5.2 GM/DL (6.4-8.2)
[2021-09-25] MEDS ORDERED: ONDANSETRON 4MG 2ML VIAL IV ONE (08:10)
[2021-09-25] MEDS ORDERED: methylPREDNISolone 125MG 2ML VIAL IV ONE (08:50)
[2021-09-25] MEDS: methylPREDNISolone 40MG 1ML VIAL IV SCH (09:00)
[2021-09-25] MEDS ORDERED: PANTOPRAZOLE 40MG VIAL IV SCH (09:00)
[2021-09-25] MEDS ORDERED: FUROSEMIDE 40MG/4ML VIAL (J1940) IV SCH (09:00)
[2021-09-25 09:14] LABS: ABG BASE EXCESS 11.8 (-2.0-2.0); ABG HCO3 35.8 MEQ/L (22.0-26.0); ABG O2 SATURATION 94.2 % (95.0-99.0); ABG PARTIAL PRESSURE CO2 44.6 mmHg (35.0-45.0); ABG PARTIAL PRESSURE O2 69.5 mmHg (75.0-100.0); ABG STANDARD HCO3 35.5 MEQ/L (22.0-26.0); ABG TOTAL CO2 37.2 MEQ/L (23.0-31.0); ABG pH (ARTERIAL) 7.523 UNITS (7.350-7.450)
[2021-09-25] MEDS: PANTOPRAZOLE 40MG VIAL IV SCH ×2 (09:28→20:36)
[2021-09-25] MEDS ORDERED: DIGOXIN INJ 0.5 MG/2 ML AMP (J1160) IV STA (09:46)
[2021-09-25] MEDS: diltiaZEM 125 MG in NS 100 ML IV SCH (10:06)
[2021-09-25] MEDS ORDERED: FUROSEMIDE 20MG/2ML VIAL (J1940) IV ONE (10:25)
[2021-09-25] MEDS: ENALAPRIL MALEATE 10 MG TAB PO SCH (10:27)
[2021-09-25 11:49] LABS: HEMATOCRIT 29.5 % (36.0-47.0); HEMOGLOBIN 9.5 g/dl (12.0-15.5); MEAN CORPUSCULAR HEMOGLOBIN 28.2 pg (27.0-33.0); MEAN CORPUSCULAR HGB CONC 32.2 g/dl (32.0-36.5); MEAN CORPUSCULAR VOLUME 87.5 fl (80.0-96.0); RED BLOOD COUNT 3.37 10^6/uL (4.00-5.40); WHITE BLOOD COUNT 15.6 10^3/uL (4.0-10.0)
[2021-09-25 11:50] LABS: PLATELET COUNT, AUTOMATED 38 10^3/uL (150-450)
[2021-09-25] MEDS ORDERED: METOPROLOL 5 MG/5 ML VIAL IV STA (11:50)
[2021-09-25 12:06] LABS: INR 1.02; PROTHROMBIN TIME 13.8 SECONDS (12.7-14.5)
[2021-09-25 12:07] LABS: PARTIAL THROMBOPLASTIN TIME 34.1 SECONDS (25.9-37.0)
[2021-09-25 12:26] LABS: ALBUMIN 2.7 GM/DL (3.2-5.2); ALT/SGPT 73 U/L (12-78); BILIRUBIN,TOTAL 1.9 MG/DL (0.2-1.0); BLOOD UREA NITROGEN 19 MG/DL (7-18); CALCIUM LEVEL 7.8 MG/DL (8.8-10.2); CARBON DIOXIDE LEVEL 36 MEQ/L (21-32); CHLORIDE LEVEL 95 MEQ/L (98-107); CREATININE FOR GFR 0.59 MG/DL (0.55-1.30); GLOMERULAR FILTRATION RATE > 60.0 (>39); GLUCOSE, FASTING 78 MG/DL (70-100); MAGNESIUM LEVEL 2.3 MG/DL (1.8-2.4); NT-PRO BNP 4943 PG/ML (<450); PHOSPHORUS LEVEL 3.1 MG/DL (2.5-4.9); POTASSIUM SERUM 3.9 MEQ/L (3.5-5.1); SODIUM LEVEL 135 MEQ/L (136-145); TOTAL PROTEIN 5.3 GM/DL (6.4-8.2)
[2021-09-25] MEDS ORDERED: METOPROLOL 5 MG/5 ML VIAL IV PRN (17:25)
[2021-09-25] MEDS ORDERED: ISOVUE-370 76% 100ML VIAL As Ordered ONE (18:02)
[2021-09-25 19:16] LABS: HEMATOCRIT 30.2 % (36.0-47.0); HEMOGLOBIN 9.3 g/dl (12.0-15.5); MEAN CORPUSCULAR HEMOGLOBIN 27.2 pg (27.0-33.0); MEAN CORPUSCULAR HGB CONC 30.8 g/dl (32.0-36.5); MEAN CORPUSCULAR VOLUME 88.3 fl (80.0-96.0); RED BLOOD COUNT 3.42 10^6/uL (4.00-5.40); WHITE BLOOD COUNT 14.4 10^3/uL (4.0-10.0)
[2021-09-25 19:18] LABS: PLATELET COUNT, AUTOMATED 33 10^3/uL (150-450)
[2021-09-25 19:40] LABS: D-DIMER QUANT 1223.22 ng/ml (<500)
[2021-09-25] MEDS: METOPROLOL SUCC (TopROL XL) 100MG *XL* TAB PO SCH (20:37)
[2021-09-26] VITALS (35 sets, daily range): BP systolic 94–142; BP diastolic 52–91
[2021-09-26] MEDS: diltiaZEM 125 MG in NS 100 ML IV SCH (00:33)
[2021-09-26 00:51] LABS: HEMATOCRIT 26.4 % (36.0-47.0); HEMOGLOBIN 8.3 g/dl (12.0-15.5); MEAN CORPUSCULAR HEMOGLOBIN 27.9 pg (27.0-33.0); MEAN CORPUSCULAR HGB CONC 31.4 g/dl (32.0-36.5); MEAN CORPUSCULAR VOLUME 88.9 fl (80.0-96.0); RED BLOOD COUNT 2.97 10^6/uL (4.00-5.40); WHITE BLOOD COUNT 14.4 10^3/uL (4.0-10.0)
[2021-09-26 00:55] LABS: PLATELET COUNT, AUTOMATED 41 10^3/uL (150-450)
[2021-09-26 00:58] LABS: D-DIMER QUANT 759.6 ng/ml (<500)
[2021-09-26] MEDS: IPRATROPIUM 0.5MG/ALBUTEROL 2.5MG INH SOL UD 3ML (DUONEB) NEB SCH ×4 (01:40→19:12)
[2021-09-26 04:34] LABS: HEMATOCRIT 28.5 % (36.0-47.0); HEMOGLOBIN 8.9 g/dl (12.0-15.5); MEAN CORPUSCULAR HEMOGLOBIN 27.7 pg (27.0-33.0); MEAN CORPUSCULAR HGB CONC 31.2 g/dl (32.0-36.5); MEAN CORPUSCULAR VOLUME 88.8 fl (80.0-96.0); RED BLOOD COUNT 3.21 10^6/uL (4.00-5.40); WHITE BLOOD COUNT 12.2 10^3/uL (4.0-10.0)
[2021-09-26 04:39] LABS: PLATELET COUNT, AUTOMATED 35 10^3/uL (150-450)
[2021-09-26 04:46] LABS: D-DIMER QUANT 1082.15 ng/ml (<500)
[2021-09-26 05:10] LABS: ALBUMIN 2.5 GM/DL (3.2-5.2); ALT/SGPT 59 U/L (12-78); BILIRUBIN,TOTAL 1.7 MG/DL (0.2-1.0); BLOOD UREA NITROGEN 22 MG/DL (7-18); CALCIUM LEVEL 7.3 MG/DL (8.8-10.2); CARBON DIOXIDE LEVEL 36 MEQ/L (21-32); CHLORIDE LEVEL 95 MEQ/L (98-107); CREATININE FOR GFR 0.68 MG/DL (0.55-1.30); GLOMERULAR FILTRATION RATE > 60.0 (>39); GLUCOSE, FASTING 119 MG/DL (70-100); MAGNESIUM LEVEL 2.4 MG/DL (1.8-2.4); POTASSIUM SERUM 4.2 MEQ/L (3.5-5.1); SODIUM LEVEL 135 MEQ/L (136-145); TOTAL PROTEIN 5.1 GM/DL (6.4-8.2)
[2021-09-26] MEDS: LEVOTHYROXINE 50MCG TABLET (0.05MG) PO SCH (05:35)
[2021-09-26] MEDS: LEVALBUTEROL 1.25 MG/0.5 ML CONCENTRATE NEB INH PRN (07:22)
[2021-09-26] MEDS: methylPREDNISolone 40MG 1ML VIAL IV SCH (08:19)
[2021-09-26] MEDS: PANTOPRAZOLE 40MG VIAL IV SCH ×2 (08:19→20:14)
[2021-09-26] MEDS ORDERED: FUROSEMIDE 40MG/4ML VIAL (J1940) IV ONE (10:50)
[2021-09-26] MEDS: ENALAPRIL MALEATE 10 MG TAB PO SCH (10:58)
[2021-09-26] MEDS: METOPROLOL SUCC *XL* 25MG TAB (TopROL *XL*) PO SCH ×2 (12:45→20:14)
[2021-09-26 14:09] LABS: HEPARIN INDUCED PLATELET ABY 0.072 OD (0.000-0.400)
[2021-09-26 21:21] LABS: HEMATOCRIT 26.4 % (36.0-47.0); HEMOGLOBIN 8.3 g/dl (12.0-15.5); MEAN CORPUSCULAR HEMOGLOBIN 27.9 pg (27.0-33.0); MEAN CORPUSCULAR HGB CONC 31.4 g/dl (32.0-36.5); MEAN CORPUSCULAR VOLUME 88.6 fl (80.0-96.0); RED BLOOD COUNT 2.98 10^6/uL (4.00-5.40); WHITE BLOOD COUNT 15.7 10^3/uL (4.0-10.0)
[2021-09-26 21:22] LABS: PLATELET COUNT, AUTOMATED 40 10^3/uL (150-450)
[2021-09-26 21:40] LABS: D-DIMER QUANT 1334.29 ng/ml (<500)
[2021-09-26] MEDS: ALPRAZolam 0.25 MG TAB PO SCH (21:52)
[2021-09-26] MEDS: IPRATROPIUM 0.5MG/ALBUTEROL 2.5MG INH SOL UD 3ML (DUONEB) NEB PRN (23:48)
[2021-09-27] VITALS (24 sets, daily range): BP systolic 109–166; BP diastolic 58–89; O2SAT 94
[2021-09-27] MEDS: IPRATROPIUM 0.5MG/ALBUTEROL 2.5MG INH SOL UD 3ML (DUONEB) NEB SCH ×4 (01:29→20:15)
[2021-09-27 04:37] LABS: HEMATOCRIT 25.4 % (36.0-47.0); HEMOGLOBIN 7.8 g/dl (12.0-15.5); MEAN CORPUSCULAR HEMOGLOBIN 27.6 pg (27.0-33.0); MEAN CORPUSCULAR HGB CONC 30.7 g/dl (32.0-36.5); MEAN CORPUSCULAR VOLUME 89.8 fl (80.0-96.0); RED BLOOD COUNT 2.83 10^6/uL (4.00-5.40); WHITE BLOOD COUNT 14.7 10^3/uL (4.0-10.0)
[2021-09-27 04:39] LABS: PLATELET COUNT, AUTOMATED 35 10^3/uL (150-450)
[2021-09-27 04:48] LABS: D-DIMER QUANT 1214.04 ng/ml (<500)
[2021-09-27 05:09] LABS: ALBUMIN 2.3 GM/DL (3.2-5.2); ALT/SGPT 53 U/L (12-78); BILIRUBIN,TOTAL 1.5 MG/DL (0.2-1.0); BLOOD UREA NITROGEN 22 MG/DL (7-18); CALCIUM LEVEL 7.7 MG/DL (8.8-10.2); CARBON DIOXIDE LEVEL 38 MEQ/L (21-32); CHLORIDE LEVEL 95 MEQ/L (98-107); CREATININE FOR GFR 0.53 MG/DL (0.55-1.30); GLOMERULAR FILTRATION RATE > 60.0 (>39); GLUCOSE, FASTING 98 MG/DL (70-100); MAGNESIUM LEVEL 2.2 MG/DL (1.8-2.4); POTASSIUM SERUM 4.1 MEQ/L (3.5-5.1); SODIUM LEVEL 135 MEQ/L (136-145); TOTAL PROTEIN 5.2 GM/DL (6.4-8.2)
[2021-09-27] MEDS: LEVOTHYROXINE 75MCG TABLET (0.075MG) PO SCH (05:36)
[2021-09-27] MEDS: diltiaZEM 125 MG in NS 100 ML IV SCH (07:49)
[2021-09-27] MEDS: PANTOPRAZOLE 40MG VIAL IV SCH ×2 (07:59→20:27)
[2021-09-27] MEDS: methylPREDNISolone 40MG 1ML VIAL IV SCH (07:59)
[2021-09-27] MEDS: METOPROLOL SUCC *XL* 25MG TAB (TopROL *XL*) PO SCH ×2 (08:01→20:28)
[2021-09-27] MEDS: ENALAPRIL MALEATE 10 MG TAB PO SCH (08:01)
[2021-09-27] MEDS ORDERED: FUROSEMIDE 20MG/2ML VIAL (J1940) IV ONE (09:45)
[2021-09-27] MEDS ORDERED: TRANEXAMIC ACID 650MG TABLET (LYSTEDA) PO SCH (16:00)
[2021-09-27] MEDS ORDERED: ALPRAZolam 0.25 MG TAB PO ONE (16:30)
[2021-09-27] MEDS: TRANEXAMIC ACID 650MG TABLET (LYSTEDA) PO SCH ×2 (17:02→21:21)
[2021-09-27] MEDS: ALPRAZolam 0.25 MG TAB PO SCH (20:27)
[2021-09-27] MEDS: IPRATROPIUM 0.5MG/ALBUTEROL 2.5MG INH SOL UD 3ML (DUONEB) NEB PRN (23:33)
[2021-09-28] VITALS (24 sets, daily range): BP systolic 89–158; BP diastolic 51–88
[2021-09-28] MEDS: IPRATROPIUM 0.5MG/ALBUTEROL 2.5MG INH SOL UD 3ML (DUONEB) NEB SCH ×4 (02:42→19:35)
[2021-09-28 05:12] LABS: ALBUMIN 2.5 GM/DL (3.2-5.2); ALT/SGPT 54 U/L (12-78); BILIRUBIN,TOTAL 1.3 MG/DL (0.2-1.0); BLOOD UREA NITROGEN 19 MG/DL (7-18); CALCIUM LEVEL 7.6 MG/DL (8.8-10.2); CARBON DIOXIDE LEVEL 35 MEQ/L (21-32); CHLORIDE LEVEL 90 MEQ/L (98-107); GLOMERULAR FILTRATION RATE > 60.0 (>39); GLUCOSE, FASTING 206 MG/DL (70-100); MAGNESIUM LEVEL 1.9 MG/DL (1.8-2.4); POTASSIUM SERUM 3.8 MEQ/L (3.5-5.1); SODIUM LEVEL 131 MEQ/L (136-145); TOTAL PROTEIN 5.3 GM/DL (6.4-8.2)
[2021-09-28] MEDS: TRANEXAMIC ACID 650MG TABLET (LYSTEDA) PO SCH ×3 (06:20→22:00)
[2021-09-28] MEDS: LEVOTHYROXINE 50MCG TABLET (0.05MG) PO SCH (06:21)
[2021-09-28] MEDS: METOPROLOL SUCC *XL* 25MG TAB (TopROL *XL*) PO SCH ×2 (09:20→20:04)
[2021-09-28] MEDS: ENALAPRIL MALEATE 10 MG TAB PO SCH (09:20)
[2021-09-28] MEDS: methylPREDNISolone 40MG 1ML VIAL IV SCH (09:20)
[2021-09-28] MEDS: PANTOPRAZOLE 40MG VIAL IV SCH ×2 (09:20→20:03)
[2021-09-28 11:13] LABS: HEMATOCRIT 28.6 % (36.0-47.0); MEAN CORPUSCULAR HGB CONC 31.5 g/dl (32.0-36.5); MEAN CORPUSCULAR VOLUME 89.1 fl (80.0-96.0); RED BLOOD COUNT 3.21 10^6/uL (4.00-5.40); WHITE BLOOD COUNT 15.9 10^3/uL (4.0-10.0)
[2021-09-28 11:20] LABS: PLATELET COUNT, AUTOMATED 44 10^3/uL (150-450)
[2021-09-28 11:42] LABS: BLOOD UREA NITROGEN 18 MG/DL (7-18); CALCIUM LEVEL 7.9 MG/DL (8.8-10.2); CARBON DIOXIDE LEVEL 35 MEQ/L (21-32); CHLORIDE LEVEL 92 MEQ/L (98-107); CREATININE FOR GFR 0.48 MG/DL (0.55-1.30); GLOMERULAR FILTRATION RATE > 60.0 (>39); GLUCOSE, FASTING 85 MG/DL (70-100); POTASSIUM SERUM 4.1 MEQ/L (3.5-5.1); SODIUM LEVEL 129 MEQ/L (136-145)
[2021-09-28 13:44] LABS: LDH LACTATE DEHYDROGENASE 842 U/L (84-246)
[2021-09-28] MEDS: methylPREDNISolone 125MG 2ML VIAL IV SCH ×2 (16:28→20:04)
[2021-09-28] MEDS ORDERED: FLUCONAZOLE 100 MG TAB PO ONE (17:00)
[2021-09-28] MEDS ORDERED: dexmedeTOMidine 200 MCG in IV 1 EA IV SCH (17:10)
[2021-09-28] MEDS: MEROPENEM INJ 1 GM in IV 1 EA IV SCH (17:37)
[2021-09-28] MEDS ORDERED: FLUCONAZOLE 400 MG in IV 1 EA IV SCH (18:00)
[2021-09-28] MEDS ORDERED: FLUCONAZOLE 400 MG in IV 1 EA IV ONE (20:00)
[2021-09-28] MEDS: ALPRAZolam 0.25 MG TAB PO SCH (20:04)
[2021-09-28] MEDS ORDERED: fentaNYL CITRATE 1,000 MCG in NS 80 ML IV SCH (21:00)
[2021-09-28] MEDS ORDERED: BACTRIM 160MG/800MG DS TAB PO SCH (21:00)
[2021-09-28] MEDS ORDERED: TRIMETHOPRIM/SULFAMETHOXAZOLE 160 MG in D5W 250 ML IV SCH (22:00)
[2021-09-29] VITALS: BP 101/55
[2021-09-29 01:00] VITALS: BP 97/54
[2021-09-29] MEDS: MEROPENEM INJ 1 GM in IV 1 EA IV SCH (01:03)
[2021-09-29] MEDS: methylPREDNISolone 125MG 2ML VIAL IV SCH (01:56)
[2021-09-29 02:00] VITALS: BP 108/64
[2021-09-29] MEDS: IPRATROPIUM 0.5MG/ALBUTEROL 2.5MG INH SOL UD 3ML (DUONEB) NEB SCH (02:32)
[2021-09-29] MEDS ORDERED: SCOPOLAMINE 1MG TRANSDERMAL PATCH TOP PRN (03:35)
[2021-09-29] MEDS ORDERED: FLEET ENEMA PR PRN (03:35)
[2021-09-29] MEDS: MORPHINE 10MG/0.5ML ORAL CONCENTRATE SOLUTION U/D SL PRN ×2 (03:52→04:01)
[2021-09-29] MEDS ORDERED: MORPHINE 10MG/0.5ML ORAL CONCENTRATE SOLUTION U/D SL PRN (05:00)
[2021-09-29] MEDS ORDERED: FLUCONAZOLE 100 MG TAB PO SCH (17:00)
== END 2021-09-29 05:56 | disposition expired | DRG 205 ==
LOC: EDBD 08:33 → M ED 08:33 → M ED INP 15:37 → M PCU 20:22 → M ICU 09-25 09:14
PROVIDERS: ADMIT Student in an Organized Health Care Education/Training Program; ATTEND Internal Medicine
PROC: 30233N1 Transfusion of Nonautologous Red Blood Cells into Peripheral Vein, Percutaneous Approach (ICD-10-PCS; principal; 2021-09-21)
PROC: 30233R1 Transfusion of Nonautologous Platelets into Peripheral Vein, Percutaneous Approach (ICD-10-PCS; 2021-09-22)
DX: J70.2 Acute drug-induced interstitial lung disorders (principal); J96.21 Acute and chronic respiratory failure with hypoxia; E87.2 Acidosis; D84.9 Immunodeficiency, unspecified; I50.32 Chronic diastolic (congestive) heart failure; J44.0 Chronic obstructive pulmonary disease with (acute) lower respiratory infection; C34.31 Malignant neoplasm of lower lobe, right bronchus or lung; C79.51 Secondary malignant neoplasm of bone; K62.5 Hemorrhage of anus and rectum; C78.7 Secondary malignant neoplasm of liver and intrahepatic bile duct; E78.5 Hyperlipidemia, unspecified; E03.9 Hypothyroidism, unspecified; I25.10 Atherosclerotic heart disease of native coronary artery without angina pectoris; F41.9 Anxiety disorder, unspecified; K21.9 Gastro-esophageal reflux disease without esophagitis; K76.89 Other specified diseases of liver; D64.9 Anemia, unspecified; J45.909 Unspecified asthma, uncomplicated; I11.0 Hypertensive heart disease with heart failure; T50.905A Adverse effect of unspecified drugs, medicaments and biological substances, initial encounter; I48.91 Unspecified atrial fibrillation; D69.6 Thrombocytopenia, unspecified; M79.81 Nontraumatic hematoma of soft tissue; I27.20 Pulmonary hypertension, unspecified; Z79.899 Other long term (current) drug therapy; Z92.3 Personal history of irradiation; Z88.8 Allergy status to other drugs, medicaments and biological substances; Z66 Do not resuscitate; Z87.891 Personal history of nicotine dependence; Z51.5 Encounter for palliative care; Z88.5 Allergy status to narcotic agent